=== PATIENT | male | born 1970 | race Hispanic/Latino ===

== ENCOUNTER 2020-01-07 18:11 | Emergency (ER) | payer BC ==
[2020-01-07 18:46] LABS: Absolute Lymphocytes (CBC) 1.6 K/uL (0.7-4.9); Basophils % 0.4 % (0-1.3); Hematocrit 46.2 % (39.6-49.0); Lymphocytes % 13.3 % (15.3-44.8); MPV 7.9 fL (7.6-11.3); RBC Red Blood Cell Count 5.59 M/uL (4.33-5.43)
[2020-01-07 18:47] LABS: Protime INR 1.04
[2020-01-07] MEDS ORDERED: NA CHLORIDE 0.9% 0 ML ONE (18:47)
[2020-01-07] MEDS ORDERED: FAMOTIDINE 20 MG/2 ML VIAL IV ONE (18:47)
[2020-01-07] MEDS ORDERED: MEPERIDINE HCL 25 MG/ML SYR ONE (18:47)
[2020-01-07] MEDS ORDERED: ONDANSETRON 4 MG/2 ML VIAL ONE (18:48)
[2020-01-07 19:00] LABS: ALT/SGPT 22 U/L (12-78); AST/SGOT 19 U/L (15-37); Albumin 3.3 g/dL (3.4-5.0); Alkaline Phosphatase 126 U/L (45-117); BUN Blood Urea Nitrogen 13 mg/dL (7-18); Bicarbonate 26 mmol/L (21-32); Bilirubin Direct < 0.1 mg/dL (0-0.2); Bilirubin Total 0.8 mg/dL (0.2-1.0); Glucose Level 291 mg/dL (74-106); Lipase 249 U/L (73-393); NT PRO-BNP 32 pg/mL (<125); Potassium 3.7 mmol/L (3.5-5.1); Protein, Total 8.3 g/dL (6.4-8.2); Sodium Level 137 mmol/L (136-145); Troponin (Emerg Dept Use Only) < 0.02 ng/mL (0.0-0.045)
--- NOTE | 2020-01-07 19:18 | RAD REPORT ---
EXAM DESCRIPTION: CT - Head Brain Wo Cont - 01/07/2020 7:07 pm CLINICAL HISTORY: HEADACHE Headache, drowsiness COMPARISON: No comparisons TECHNIQUE: All CT scans are performed using dose optimization technique as appropriate and may inclu de automated exposure control or mA/KV adjustment according to patient size. FINDINGS: No intracranial hemorrhage, hydrocephalus or extra-axial fluid collection.No areas of brai n edema or evidence of midline shift. The paranasal sinuses and mastoids are clear. The calvarium is intact. IMPRESSION: No acute intracranial abnormality.
--- NOTE | 2020-01-07 19:19 | RAD REPORT ---
EXAM DESCRIPTION: RAD - Chest Single View - 01/07/2020 6:53 pm CLINICAL HISTORY: vomiting Chest pain. COMPARISON: No comparisons FINDINGS: Portable technique limits examination quality. The lungs are grossly clear. The heart is normal in size. No displaced fractures. IMPRESSION: No acute intrathoracic process suspected.
[2020-01-07] MEDS ORDERED: lisinopriL 20 MG TAB ONE (19:42)
[2020-01-07] MEDS ORDERED: HYDRALAZINE HCL 20 MG/ML VIAL ONE (19:42)
--- NOTE | 2020-01-07 20:08 | ER ---
Nurse's Notes [facility] Name: Alan Pollack Jr Age: 49 yrs Sex: Male : 1970 Arrival Date: 01/07/2020 Time: 18:16 Bed 8 Private MD: Roman Avilez T Diagnosis: Hypertensive heart disease;Diabetes mellitus due to underlying condition with hyperglycemia Presentation: 01/06 18:24 Chief complaint: Patient states: hyperglycemia in the 400s, headache x 1-2 weeks. sv Headache and unable to see directly in front of him and is seeing flashing lights. Pt reports not taking his medications "in a while". Coronavirus screen: Client denies travel out of the [place] in the last 14 days. At this time, the client does not indicate any symptoms associated with coronavirus-19. Ebola Screen: No symptoms or risks identified at this time. Risk Assessment: Do you want to hurt yourself or someone else? Patient reports no desire to harm self or others. Onset of symptoms is unknown. 18:24 Method Of Arrival: Ambulatory sv 18:24 Acuity: ROSIE 2 sv 18:25 Initial Sepsis Screen: Does the patient meet any 2 criteria? No. Patient's initial vg1 sepsis screen is negative. Does the patient have a suspected source of infection? No. Patient's initial sepsis screen is negative. Triage Assessment: 18:44 GI: Reports diarrhea, vomiting, since Reports vomiting about 2 hours ago and last vg1 diarrhea was about an hour ago. Denies ABD pain or tenderness. Historical: - Allergies: 18:26 No Known Allergies; sv - PMHx: 18:26 Diabetes - NIDDM; Hypertension; sv - PSHx: 18:26 None; sv - Immunization history:: Flu vaccine is not up to date. - Social history:: Smoking status: Patient denies any tobacco usage or history of. Screenin:25 Abuse screen: Denies threats or abuse. Nutritional screening: No deficits noted. vg1 Tuberculosis screening: No symptoms or risk factors identified. Fall Risk No fall in past 12 months (0 pts). No secondary diagnosis (0 pts). IV access (20 points). Ambulatory Aid- None/Bed Rest/Nurse Assist (0 pts). Gait- Normal/Bed Rest/Wheelchair (0 pts) Mental Status- Oriented to own ability (0 pts). Total Whaley Fall Scale indicates No Risk (0-24 pts). Assessment: 18:20 General: Appears in no apparent distress. Behavior is calm, cooperative. Pain: vg1 Complains of pain in head Pain currently is 8 out of 10 on a pain scale. Neuro: Level of Consciousness is awake, alert, obeys commands, Oriented to person, place, time, situation. Cardiovascular: Capillary refill < 3 seconds Patient's skin is warm and dry. Respiratory: Airway is patent Respiratory effort is even, unlabored, Respiratory pattern is regular, symmetrical. GI: Abdomen is round non-distended. : No signs and/or symptoms were reported regarding the genitourinary system. EENT: No signs and/or symptoms were reported regarding the EENT system. Derm: Skin is pink, warm \\T\\ dry. Musculoskeletal: Range of motion: intact in all extremities. 19:15 Reassessment: Patient appears in no apparent distress at this time. Patient returned lp1 from CT, states relief from nausea at this time, states headache decreased after medication administered. Neuro: Level of Consciousness is awake, alert, obeys commands. Cardiovascular: Heart tones S1 S2 present Patient's skin is warm and dry. Respiratory: Respiratory effort is even, unlabored, Breath sounds are clear bilaterally. GI: Abdomen is obese, Patient currently denies nausea. Derm: Skin is intact, Skin is dry, Skin is normal. Musculoskeletal: Circulation, motion, and sensation intact. 19:35 Reassessment: patient given ice water, tolerating well; denies nausea. lp1 20:15 Reassessment: Patient denies nausea and headache at discharge; Educated on follow-up lp1 with PCP and taking home meds to control BP and DM. Vital Signs: 18:24 BP 204 / 100; Pulse 94; Resp 16; Pulse Ox 99% ; Weight 136.08 kg; Height 5 ft. 10 in. sv (177.80 cm); Pain 9/10; 18:30 BP 184 / 88; Pulse 86; Resp 20; Temp 98.0(O); Pulse Ox 96% on R/A; vg1 19:15 BP 203 / 101; Pulse 82; Resp 19; Pulse Ox 98% on R/A; Pain 5/10; lp1 19:35 BP 193 / 99; Pulse 83; Resp 18; Pulse Ox 98% on R/A; lp1 20:06 BP 167 / 76; Pulse 98; Resp 20; Pulse Ox 98% on R/A; lp1 18:24 Body Mass Index 43.05 (136.08 kg, 177.80 cm) sv ED Course: 18:16 Patient arrived in ED. mr 18:16 Roman Avilez MD is Private Physician. mr 18:18 Roddy Neil PA is PHCP. cp 18:18 Víctor Hermosillo MD is Attending Physician. cp 18:18 Justin Mack NP is PHCP. pm1 18:21 Em Dozier, RN is Primary Nurse. vg1 18:25 Triage completed. sv 18:26 Nurse Practitioner and/or Physician [employer] to see patient. sv 18:26 Arm band placed on Patient placed in an exam room, on a stretcher. sv 18:26 Patient has correct armband on for positive identification. Bed in low position. Call vg1 light in reach. lunchroom monitor on. Pulse ox on. NIBP on. 18:30 Initial lab(s) drawn, by nc, sent to lab. Inserted saline lock: 20 gauge in right em antecubital area, using aseptic technique. Blood collected. 18:40 EKG done, by ED staff, reviewed by Roddy HOLCOMB. dh3 18:46 Xray at bedside. vg1 18:51 XRAY Chest (1 view) In Process Unspecified. EDMS 19:05 Fransisco Magaña MD is Attending Physician. cp 19:07 CT Head Brain wo Cont In Process Unspecified. EDMS 19:10 Primary Nurse role handed off by Em Dozier, RN mw2 19:11 Tiffani Chavez, GOPI is Primary Nurse. lp1 20:07 Roman Avilez MD is Referral Physician. cp 20:15 No provider procedures requiring assistance completed. IV discontinued, No lp1 redness/swelling at site. Pressure dressing applied. Administered Medications: 18:38 Drug: Pepcid 20 mg Route: IVP; Site: right antecubital; em 19:24 Follow up: Response: No adverse reaction lp1 18:40 Drug: Zofran (Ondansetron) 4 mg Route: IVP; Site: right antecubital; em 19:24 Follow up: Response: Marked relief of symptoms lp1 18:42 Drug: Demerol - Meperidine 12.5 mg Route: IVP; Site: right antecubital; em 19:24 Follow up: Response: Pain is decreased lp1 19:34 Drug: Lisinopril 20 mg Route: PO; lp1 19:34 Drug: hydrALAZINE 10 mg Route: IV; Rate: calculated rate; Site: right antecubital; lp1 20:07 Follow up: Response: Blood pressure is lowered; IV Status: Completed infusion lp1 Outcome: 20:08 Discharge ordered by . cp 20:20 Discharged to home ambulatory. lp1 20:20 Condition: good 20:20 Discharge instructions given to patient, Instructed on discharge instructions, follow up and referral plans. medication usage, Demonstrated understanding of instructions, follow-up care, medications, Prescriptions given X 1. 20:33 Patient left the ED. lp1 Signatures: Dispatcher [employer] Charley Ramachandran, RN GOPI Flora Herrera mr DonnellyKenny RN GOPI Tiffani Chavez RN RN lp1 Roddy Neil PA PA Justin Elena, DRY COLOR TESTER DRY COLOR TESTER 1 Ariana Payton 3 Silverio Muir 2 Em Dozier RN RN vg1
--- NOTE | 2020-01-07 20:09 | EDPHYS ---
Physician Documentation [facility] Name: Alan Pollack Jr Age: 49 yrs Sex: Male : 1970 Arrival Date: 01/07/2020 Time: 18:16 Bed 8 Private MD: Roman Avilez T ED Physician Fransisco Magaña HPI: 01/06 18:33 This 49 yrs old Male presents to ER via Ambulatory with complaints of High cp Blood Sugar, Nausea/Vomiting, Headache. 18:33 The patient or guardian reports hyperglycemia, that was potentially precipitated by not cp taking medications as prescribed. Associated signs and symptoms: Pertinent positives: nausea, vomiting. 18:33 Current symptoms: In the emergency department the patient's symptoms are unchanged from cp the initial presentation. Historical: - Allergies: 18:26 No Known Allergies; sv - PMHx: 18:26 Diabetes - NIDDM; Hypertension; sv - PSHx: 18:26 None; sv - Immunization history:: Flu vaccine is not up to date. - Social history:: Smoking status: Patient denies any tobacco usage or history of. ROS: 18:40 Constitutional: Negative for body aches, chills, fever, poor PO intake. cp 18:40 Eyes: Positive for blurry vision, Negative for vision loss. cp 18:40 ENT: Negative for ear pain, sore throat, difficulty swallowing, difficulty handling secretions. 18:40 Cardiovascular: Negative for chest pain. 18:40 Respiratory: Negative for cough, shortness of breath, wheezing. 18:40 Abdomen/GI: Positive for nausea and vomiting, Negative for abdominal pain, diarrhea, constipation. 18:40 Neuro: Positive for headache, Negative for altered mental status, numbness, syncope, weakness. 18:40 All other systems are negative. Exam: 18:42 ECG was reviewed by the Attending Physician. cp 18:45 Constitutional: The patient appears in no acute distress, alert, awake, cp non-diaphoretic, non-toxic, well developed, well nourished, obese. 18:45 Head/Face: Normocephalic, atraumatic. cp 18:45 Eyes: Periorbital structures: appear normal, Pupils: equal, round, and reactive to light and accomodation, Extraocular movements: intact throughout, Conjunctiva: normal, no exudate, no injection, Sclera: no appreciated abnormality, Lids and lashes: appear normal, bilaterally. 18:45 ENT: External ear(s): are unremarkable, Ear canal(s): are normal, clear, TM's: dullness, bilaterally, Nose: is normal, Mouth: Lips: moist, Oral mucosa: moist, Posterior pharynx: is normal, airway is patent, no erythema, no exudate. 18:45 Neck: ROM/movement: is normal, is supple, without pain, no range of motions limitations. 18:45 Chest/axilla: Inspection: normal, Palpation: is normal, no crepitus, no tenderness. 18:45 Cardiovascular: Rate: normal, Rhythm: regular, Edema: is not appreciated. 18:45 Respiratory: the patient does not display signs of respiratory distress, Respirations: normal, no use of accessory muscles, no retractions, labored breathing, is not present, Breath sounds: are clear throughout, no decreased breath sounds, no stridor, no wheezing. 18:45 Abdomen/GI: Inspection: obese Palpation: abdomen is soft and non-tender, in all quadrants. 18:45 Back: pain, is absent, ROM is normal. 18:45 Neuro: Orientation: to person, place \T\ time. Mentation: is normal, Cerebellar function: is grossly normal, Motor: moves all fours, strength is normal, Sensation: is normal, Gait: is steady, at a normal pace, without difficulty. Vital Signs: 18:24 BP 204 / 100; Pulse 94; Resp 16; Pulse Ox 99% ; Weight 136.08 kg; Height 5 ft. 10 in. sv (177.80 cm); Pain 9/10; 18:30 BP 184 / 88; Pulse 86; Resp 20; Temp 98.0(O); Pulse Ox 96% on R/A; vg1 19:15 BP 203 / 101; Pulse 82; Resp 19; Pulse Ox 98% on R/A; Pain 5/10; lp1 19:35 BP 193 / 99; Pulse 83; Resp 18; Pulse Ox 98% on R/A; lp1 20:06 BP 167 / 76; Pulse 98; Resp 20; Pulse Ox 98% on R/A; lp1 18:24 Body Mass Index 43.05 (136.08 kg, 177.80 cm) sv MDM: 18:23 Patient medically screened. 20:07 Data reviewed: vital signs, nurses notes, lab test result(s), EKG, radiologic studies, cp CT scan, plain films. 20:07 Test interpretation: by ED physician or midlevel provider: ECG, plain radiologic cp studies. Counseling: I had a detailed discussion with the patient and/or guardian regarding: the historical points, exam findings, and any diagnostic results supporting the discharge/admit diagnosis, the presence of at least one elevated blood pressure reading (>120/80) during this emergency department visit, lab results, radiology results, the need for outpatient follow up, for definitive care, a family practitioner, to return to the emergency department if symptoms worsen or persist or if there are any questions or concerns that arise at home. Response to treatment: the patient's symptoms have markedly improved after treatment, and as a result, I will discharge patient. 01/06 18: Order name: Basic Metabolic Panel; Complete Time: 19:03 01/06 19:03 Interpretation: Normal except: GLUC 291. 01/06 18:28 Order name: CBC with Diff; Complete Time: 19:03 01/06 19:03 Interpretation: Normal except: WBC 12.3; RBC 5.59; CHANTEL% 83.4; LYM% 13.3; MN% 2.5; NEUT cp A 10.3. 01/06 18:28 Order name: LFT's; Complete Time: 19:03 01/06 18:28 Order name: Magnesium; Complete Time: 19:03 01/06 18:28 Order name: NT PRO-BNP; Complete Time: 19:03 01/06 18:28 Order name: PT-INR; Complete Time: 19:03 01/06 18:28 Order name: Troponin (emerg Dept Use Only); Complete Time: 19:03 01/06 19:04 Interpretation: Reviewed. 01/06 18:28 Order name: XRAY Chest (1 view); Complete Time: 19:21 01/06 19:21 Interpretation: Report reviewed. 01/06 18: Order name: CT Head Brain wo Cont; Complete Time: 19:21 01/06 18:28 Order name: Lipase; Complete Time: 19:03 01/06 18:32 Order name: Ketone, Serum; Complete Time: 19:09 01/06 19:09 Interpretation: Within normal limits: ACET NEG. cp 01/06 18:38 Order name: Glucose, Ancillary Testing; Complete Time: 19:03 EDMS 01/06 18:28 Order name: EKG; Complete Time: 18:29 cp 01/06 18:28 Order name: Cardiac monitoring; Complete Time: 18:31 cp 01/06 18:28 Order name: EKG - Nurse/Tech; Complete Time: 18:51 01/06 18:28 Order name: IV Saline Lock; Complete Time: 18:31 01/06 18:28 Order name: Labs collected and sent; Complete Time: 18:31 cp 01/06 18:28 Order name: O2 Per Protocol; Complete Time: 18:31 01/06 18:28 Order name: O2 Sat Monitoring; Complete Time: 18:31 01/06 19:21 Order name: PO challenge; Complete Time: 19:24 cp EC:42 Rate is 85 beats/min. Rhythm is regular. LA interval is normal. QRS interval is normal. cp QT interval is normal. Interpreted by me. Reviewed by me. Administered Medications: 18:38 Drug: Pepcid 20 mg Route: IVP; Site: right antecubital; em 19:24 Follow up: Response: No adverse reaction lp1 18:40 Drug: Zofran (Ondansetron) 4 mg Route: IVP; Site: right antecubital; em 19:24 Follow up: Response: Marked relief of symptoms lp1 18:42 Drug: Demerol - Meperidine 12.5 mg Route: IVP; Site: right antecubital; em 19:24 Follow up: Response: Pain is decreased lp1 19:34 Drug: Lisinopril 20 mg Route: PO; lp1 19:34 Drug: hydrALAZINE 10 mg Route: IV; Rate: calculated rate; Site: right antecubital; lp1 20:07 Follow up: Response: Blood pressure is lowered; IV Status: Completed infusion lp1 Disposition: 20:25 Chart complete. 01/07 06:03 Co-signature as Attending Physician, Fransisco Magaña MD. [email or web address] Disposition: 01/07/20 20:08 Discharged to Home. Impression: Hypertensive heart disease, Diabetes mellitus due to underlying condition with hyperglycemia. - Condition is Stable. - Discharge Instructions: Type 2 Diabetes Mellitus, Diagnosis, Adult, Hypertension, Blood Glucose Monitoring, Adult, Diabetes Mellitus and Food, Managing Your Hypertension. - Prescriptions for Lisinopril 20 mg Oral Tablet - take 1 tablet by ORAL route once daily; 20 tablet. - Medication Reconciliation Form, Thank You Letter, Antibiotic Education, Prescription Opioid Use form. - Follow up: Roman Avilez MD; When: 1 - 2 days; Reason: Recheck today's complaints. - Problem is chronic. - Symptoms have improved. Signatures: Dispatcher [employer] Charley Ramachandran RN RN Kenny Donnelly RN RN em Tiffani Chavez RN RN lp1 Roddy Neil PA PA cp Fransisco Magaña MD MD [email or web address] Corrections: (The following items were deleted from the chart) 01/06 20:33 20:08 01/07/2020 20:08 Discharged to Home. Impression: Hypertensive heart disease; lp1 Diabetes mellitus due to underlying condition with hyperglycemia. Condition is Stable. Forms are Medication Reconciliation Form, Thank You Letter, Antibiotic Education, Prescription Opioid Use. Follow up: Roman Avilez; When: 1 - 2 days; Reason: Recheck today's complaints. Problem is chronic. Symptoms have improved. cp
[2020-01-08 01:20] VITALS: TEMP 98
[2020-01-08 01:22] VITALS: O2SAT 98
[2020-01-08 01:25] VITALS: BP 167/76
== END 2020-01-07 20:33 | disposition home or self-care (01) ==
LOC: ER 18:11
DX: E11.65 Type 2 diabetes mellitus with hyperglycemia (principal); I11.9 Hypertensive heart disease without heart failure; I10 Essential (primary) hypertension
CPT/HCPCS: 96365; 93005; 85025; 80048; 36415; 82010; 83735; 85610; 82947; 80076; 84484; 83690; 83880; 70450; 71045; 96375; 99285; J0360; J2175; J2405; J7030

== ENCOUNTER 2022-11-04 02:16 | Emergency (ER) | payer BC ==
[2022-11-04] MEDS ORDERED: NA CHLORIDE 0.9% 500 ML ONE (02:50)
[2022-11-04] MEDS ORDERED: FOLIC ACID 5 MG/ML VIAL ONE (02:51)
[2022-11-04] MEDS ORDERED: TENECTEPLASE 50 MG/10 ML VIAL IV ONE (02:57)
[2022-11-04] MEDS ORDERED: INSULIN GLARGINE 100 UNIT/ML SQ ONE (03:10)
[2022-11-04] MEDS ORDERED: INSULIN -REGULAR HUMAN 50 UNIT/0.5 ML ML ONE (03:11)
[2022-11-04] MEDS ORDERED: LABETALOL 20 MG/4ML SYRINGE IV ONE ×2 (03:11→04:01)
[2022-11-04 03:14] LABS: Absolute Lymphocytes (CBC) 3.3 K/uL (0.7-4.9); Hematocrit 41.6 % (39.6-49.0); Lymphocytes % 34.3 % (15.3-44.8); MPV 7.9 fL (7.6-11.3); Platelets 265 thou/uL (152-406); RBC Red Blood Cell Count 4.95 M/uL (4.33-5.43)
[2022-11-04 03:16] LABS: Protime INR 0.77
--- NOTE | 2022-11-04 03:21 | ER ---
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 stated last known normal was 2302 prior to going to bed. Patient stated woke up this AM to go to bathroom and almost fell due to the weakness and numbness. 02:19 Coronavirus screen: Vaccine status: Patient reports receiving the 2nd dose of the covid pf1 vaccine. Moderna Client denies travel out of the [place] in the last 14 days. At this time, the client does not indicate any symptoms associated with coronavirus-19. Ebola Screen: Patient negative for fever greater than or equal to 101.5 degrees Fahrenheit, and additional compatible Ebola Virus Disease symptoms. Initial Sepsis Screen: Does the patient meet any 2 criteria? No. Patient's initial sepsis screen is negative. Does the patient have a suspected source of infection? No. Patient's initial sepsis screen is negative. Risk Assessment: Do you want to hurt yourself or someone else? Patient reports no desire to harm self or others. 02:19 Method Of Arrival: Ambulatory pf1 02:19 Acuity: ROSIE 2 pf1 04:18 Onset of symptoms was November 04, 2022 at 02:00. rv Historical: - Allergies: 02:40 No Known Allergies; pf1 - PMHx: 02:40 Diabetes - NIDDM; Hypertension; Congestive heart failure; pf1 - PSHx: 02:40 None; pf1 - Immunization history:: Adult Immunizations up to date, Client reports receiving the 2nd dose of the Covid vaccine, Moderna Last tetanus immunization: > 10 years ago Flu vaccine status is unknown. - Social history:: Smoking status: Patient denies any tobacco usage or history of. Patient uses alcohol, occasionally. Patient/guardian denies using street drugs. - Family history:: not pertinent. Screenin:17 [facility] ED Fall Risk Assessment (Adult) History of falling in the last 3 months, rv including since admission No falls in past 3 months (0 pts) Score/Fall Risk Level 3 or more points = High Risk Oriented to surroundings, Maintained a safe environment, Educated pt \T\ family on fall prevention, incl call for assistance when getting out of bed, Assessed \T\ reinforced patient's understanding of fall precautions, Provided non-skid footwear, Hourly rounding (assess needs \T\ fall precautionary measures) done, Used ambulatory aids as needed (educated on \T\ assisted with), Used gait belt as appropriate Implemented a Fall Risk Plan of Care, Apply high fall risk patient identification: yellow non skid footwear/ fall signage, Placed fall mat w/ non beveled edge next to bed, Activated bed/chair alarm, Remained w/in arm's length of patient and in sight while toileting, Offered frequent toileting (1:1 observation), Remained with patient while ambulating, Utilized family, sitter, or virtual claim inspector as indicated. Abuse screen: Denies threats or abuse. Denies injuries from another. Nutritional screening: No deficits noted. Tuberculosis screening: No symptoms or risk factors identified. Assessment: 02:30 General: Appears comfortable, Behavior is calm, cooperative. rv 02:30 Pain: Denies pain. Neuro: Level of Consciousness is awake, alert, obeys commands, rv Oriented to person, place, time, situation. Cardiovascular: Capillary refill < 3 seconds Patient's skin is warm and dry. Respiratory: Airway is patent Respiratory effort is even, unlabored. Derm: Skin is intact. Vital Signs: 02:19 BP 234 / 115; Pulse 94; Resp 18; Temp 98; Pulse Ox 97% on R/A; Weight 105 kg; Height 5 pf1 ft. 10 in. ; Pain 0/10; 02:30 BP 210 / 89; Pulse 93; Resp 19; Pulse Ox 95% on R/A; rv 02:45 BP 214 / 101; Pulse 95; Resp 18; Pulse Ox 98% ; rv 03:00 BP 183 / 83; Pulse 90; Resp 18; Pulse Ox 96% on R/A; rv 03:15 BP 200 / 105; Pulse 88; Resp 17; Pulse Ox 97% on R/A; rv 03:30 BP 212 / 104; Pulse 92; Resp 18; Pulse Ox 97% on R/A; rv 03:45 BP 187 / 81; Pulse 88; Resp 17; Temp 98.6; Pulse Ox 97% on R/A; rv 02:19 Body Mass Index 33.21 (105.00 kg, 177.8 cm) pf1 02:19 Pain Scale: Adult pf1 [place] Coma Score: 03:45 Eye Response: spontaneous(4). Motor Response: obeys commands(6). Verbal Response: rv oriented(5). Total: 15. NIH Stroke Scale Scores: 02:30 NIHSS Score: 1 rv 03:30 NIHSS Score: 0 rv 03:30 NIHSS Score: 2 sujit ED Course: 02:18 Patient arrived in ED. mr 02:19 Roman Avilez MD is Private Physician. mr 02:20 Roddy Drake MD is Attending Physician. sujit 02:30 Arm band placed on right wrist. rv 02:30 Patient has correct armband on for positive identification. Bed in low position. Call rv light in reach. Side rails up X 1. 02:30 Provided Education on: stroke. Client placed on continuous cardiac and pulse oximetry rv monitoring. NIBP monitoring applied. cardboard cutter on. 02:34 Pramod Marcus, GOPI is Primary Nurse. rv 02:35 Inserted saline lock: 20 gauge in right antecubital area, using aseptic technique. rv Blood collected. 02:40 Triage completed. pf1 02:54 CT Stroke Brain w/o Contrast In Process Unspecified. EDMS 02:54 CT Head Angio In Process Unspecified. EDMS 02:55 CT Neck Angio In Process Unspecified. EDMS 02:57 XRAY Chest (1 view) In Process Unspecified. EDMS 03:00 No provider procedures requiring assistance completed. Inserted saline lock: 20 gauge rv in left forearm, using aseptic technique. 03:20 Initiated transfer with Michael at [facility]. rv1 03:[address] Rodriguez to [place] [id number] Bed 14. rv1 03:32 Called [facility] for transfer. rv1 04:19 Patient transferred, IV remains in place. rv Administered Medications: 02:46 Drug: NS 0.9% IV 500 ml IV at bolus once Route: IV; Rate: bolus; Site: right rv antecubital; 03:45 Follow up: IV Status: Completed infusion rv 02:47 Drug: foLIC Acid IVPB 1 mg IVPB once Route: IVPB; Site: right antecubital; rv 03:45 Follow up: IV Status: Completed infusion; IV Intake: 500ml rv 03:00 Drug: Labetalol IV 10 mg IV at per protocol once over 2 mins; For SBP greater than 140. rv Hold for HR less than 60, notify provider. Route: IV; Rate: per protocol; Infused Over: 2 mins; Site: right antecubital; :45 Follow up: Response: Blood pressure is lowered; IV Status: Completed infusion rv 03:00 Drug: Insulin Regular Human IVP 10 units IVP once {Co-Signature: bp (Jw Severino RN).} Route: IVP; Site: right antecubital; :45 Follow up: Response: Blood sugar is lowered rv 03:00 Drug: Insulin Glargine Sub-Q 30 units Sub-Q once {Co-Signature: bp (Jw Severino RN).} Route: Sub-Q; Site: left lower abdomen; 03:45 Follow up: Response: No adverse reaction rv 03:20 Drug: TNK FOR STROKE - Tenecteplase IV 0.25 mg/kg IV at per protocol once; MAX rv DOSE 25 mg, IVP over 5 seconds {Co-Signature: bp (Jw Severino RN).} Route: IV; Rate: per protocol; Site: right antecubital; 03:45 Follow up: Response: No adverse reaction; IV Status: Completed infusion rv 03:30 Drug: Labetalol IV 20 mg IV at per protocol once over 2 mins Route: IV; Rate: per rv protocol; Infused Over: 2 mins; Site: right antecubital; 03:45 Follow up: Response: Blood pressure is lowered; IV Status: Completed infusion rv 04:20 Not Given (not appropriate at this timee): [id number] mg IV at per protocol once over rv 2 mins Medication: 04:17 VIS not applicable for this client. rv Intake: 03:45 IV: 500ml; Total: 500ml. rv Outcome: 03:21 ER care complete, transfer ordered by MD. beckett 04:19 Transferred by helicopter to [facility], Transfer form completed. rv X-rays sent w/ patient. 04:19 Condition: improved 04:19 Instructed on the need for transfer, 04:23 Patient left the ED. NIH Stroke Scale - NIH Stroke Score Date: 11/04/2022 Time: 02:30 Total Score = 1 10. Dysarthria (speech clarity - read or repeat words) - 0(Normal) 11. Extinction and Inattention (visual/tactile/auditory/spatial/personal) - 0(No abnormality) 1a. Level of Consciousness (LOC) - 0(Alert) 1b. Level of Consciousness (LOC) (Month \T\ Age) - 0(Both) 1c. LOC Commands (Open \T\ Closes Eyes/Spot Man) - 0(Both) 2. Best Gaze (Lateral Gaze Paresis) - 0(Normal) 3. Visual Field Loss - 0(No visual loss) 4. Facial Palsy - 0(Normal) 5a. Left Arm: Motor (10-second hold) - 0(No drift) 5b. Right Arm: Motor (10-second hold) - 0(No drift) 6a. Left Leg: Motor (5-second hold - always test supine) - 0(No drift) 6b. Right Leg: Motor (5-second hold - always test supine) - 0(No drift) 7. Limb Ataxia (finger/nose \T\ heel/christine - test with eyes open) - 0(Absent) 8. Sensory Loss (pinprick arms/legs/face) - 1(Mild to moderate loss) 9. Best Language: Aphasia (description/naming/reading) - 0(No aphasia) Initials: NIH Stroke Scale - NIH Stroke Score Date: 11/04/2022 Time: 03:30 Total Score = 0 10. Dysarthria (speech clarity - read or repeat words) - 0(Normal) 11. Extinction and Inattention (visual/tactile/auditory/spatial/personal) - 0(No abnormality) 1a. Level of Consciousness (LOC) - 0(Alert) 1b. Level of Consciousness (LOC) (Month \T\ Age) - 0(Both) 1c. LOC Commands (Open \T\ Closes Eyes/Spot Man) - 0(Both) 2. Best Gaze (Lateral Gaze Paresis) - 0(Normal) 3. Visual Field Loss - 0(No visual loss) 4. Facial Palsy - 0(Normal) 5a. Left Arm: Motor (10-second hold) - 0(No drift) 5b. Right Arm: Motor (10-second hold) - 0(No drift) 6a. Left Leg: Motor (5-second hold - always test supine) - 0(No drift) 6b. Right Leg: Motor (5-second hold - always test supine) - 0(No drift) 7. Limb Ataxia (finger/nose \T\ heel/christine - test with eyes open) - 0(Absent) 8. Sensory Loss (pinprick arms/legs/face) - 0(Normal) 9. Best Language: Aphasia (description/naming/reading) - 0(No aphasia) Initials: jennifer NIH Stroke Scale - NIH Stroke Score Date: 11/04/2022 Time: 03:30 Total Score = 2 10. Dysarthria (speech clarity - read or repeat words) - 0(Normal) 11. Extinction and Inattention (visual/tactile/auditory/spatial/personal) - 1(Present) 1a. Level of Consciousness (LOC) - 0(Alert) 1b. Level of Consciousness (LOC) (Month \T\ Age) - 0(Both) 1c. LOC Commands (Open \T\ Closes Eyes/Spot Man) - 0(Both) 2. Best Gaze (Lateral Gaze Paresis) - 0(Normal) 3. Visual Field Loss - 0(No visual loss) 4. Facial Palsy - 0(Normal) 5a. Left Arm: Motor (10-second hold) - 0(No drift) 5b. Right Arm: Motor (10-second hold) - 0(No drift) 6a. Left Leg: Motor (5-second hold - always test supine) - 0(No drift) 6b. Right Leg: Motor (5-second hold - always test supine) - 0(No drift) 7. Limb Ataxia (finger/nose \T\ heel/christine - test with eyes open) - 0(Absent) 8. Sensory Loss (pinprick arms/legs/face) - 1(Mild to moderate loss) 9. Best Language: Aphasia (description/naming/reading) - 0(No aphasia) Initials: sujit Signatures: Dispatcher [employer] Roddy Maza MD MD cha Rivera, Flora, Reg Reg mr Pramod Marcus RN RN rv Finley, Pamala, RN RN pf1 Mayra Degroot rv1 Jw Severino RN bp Corrections: (The following items were deleted from the chart) 04:21 03:00 Labetalol IV 10 mg IV at per protocol in right antecubital over 2 mins rv rv 04:22 03:54 Labetalol IV 20 mg IV at per protocol in right antecubital over 2 mins rv rv
--- NOTE | 2022-11-04 03:21 | EDPHYS ---
Physician Documentation [facility] Name: Alan Pollack Jr Age: 51 yrs Sex: Male : 1970 Arrival Date: 11/04/2022 Time: 02:16 Bed 5 Private MD: Roman Avilez T ED Physician Roddy Drake HPI: 11/04 02:43 This 51 yrs old Male presents to ER via Ambulatory with complaints of Right sujit side numbness. 02:43 The patient's problem is reported as paresthesias, in right upper extremity, in right sujit lower extremity, weakness, in the right upper extremity, in the right lower extremity. Onset: The symptoms/episode began/occurred at 23:02. Duration: The episode is continuous. Context: the episode(s) was witnessed, by family, , symptoms became apparent upon waking, occurred at an unknown location, last nl 1102pm. The symptoms are alleviated by nothing. The symptoms are aggravated by walking. The patient presents to the emergency department with weakness of the right upper extremity, right lower extremity, that is moderate. Onset: The symptoms/episode began/occurred at an unknown time. Context: occurred at home. Associated signs and symptoms: Pertinent positives:. Severity of symptoms: At their worst the symptoms were moderate in the emergency department the symptoms have improved moderately. Patient's baseline: Neuro: alert and fully oriented, Motor: no deficits, Ambulation: walks without assistance, Speech: normal, The patient has a previous history of htn. Current symptoms: 90 % better. Historical: - Allergies: 02:40 No Known Allergies; pf1 - PMHx: 02:40 Diabetes - NIDDM; Hypertension; Congestive heart failure; pf1 - PSHx: 02:40 None; pf1 - Immunization history:: Adult Immunizations up to date, Client reports receiving the 2nd dose of the Covid vaccine, Moderna Last tetanus immunization: > 10 years ago Flu vaccine status is unknown. - Social history:: Smoking status: Patient denies any tobacco usage or history of. Patient uses alcohol, occasionally. Patient/guardian denies using street drugs. - Family history:: not pertinent. ROS: 02:48 Constitutional: Negative for fever, chills, and weight loss, Eyes: Negative for injury, sujit pain, redness, and discharge, ENT: Negative for injury, pain, and discharge, Neck: Negative for injury, pain, and swelling, Cardiovascular: Negative for chest pain, palpitations, and edema, Respiratory: Negative for shortness of breath, cough, wheezing, and pleuritic chest pain, Abdomen/GI: Negative for abdominal pain, nausea, vomiting, diarrhea, and constipation, Back: Negative for injury and pain, : Negative for injury, bleeding, discharge, and swelling, MS/Extremity: Negative for injury and deformity, Skin: Negative for injury, rash, and discoloration, Psych: Negative for depression, anxiety, suicide ideation, homicidal ideation, and hallucinations, Allergy/Immunology: Negative for hives, rash, and allergies, Endocrine: Negative for neck swelling, polydipsia, polyuria, polyphagia, and marked weight changes, Hematologic/Lymphatic: Negative for swollen nodes, abnormal bleeding, and unusual bruising, 02:48 Neuro: Positive for tingling, weakness, of the right arm and right leg, Exam: 02:48 Constitutional: This is a well developed, well nourished patient who is awake, alert, sujit and in no acute distress. Head/Face: Normocephalic, atraumatic. Eyes: Pupils equal round and reactive to light, extra-ocular motions intact. Lids and lashes normal. Conjunctiva and sclera are non-icteric and not injected. Cornea within normal limits. Periorbital areas with no swelling, redness, or edema. ENT: Nares patent. No nasal discharge, no septal abnormalities noted. Tympanic membranes are normal and external auditory canals are clear. Oropharynx with no redness, swelling, or masses, exudates, or evidence of obstruction, uvula midline. Mucous membranes moist. Neck: Trachea midline, no thyromegaly or masses palpated, and no cervical lymphadenopathy. Supple, full range of motion without nuchal rigidity, or vertebral point tenderness. No Meningismus. Chest/axilla: Normal chest wall appearance and motion. Nontender with no deformity. No lesions are appreciated. Cardiovascular: Regular rate and rhythm with a normal S1 and S2. No gallops, murmurs, or rubs. Normal PMI, no JVD. No pulse deficits. Respiratory: Lungs have equal breath sounds bilaterally, clear to auscultation and percussion. No rales, rhonchi or wheezes noted. No increased work of breathing, no retractions or nasal flaring. Abdomen/GI: Soft, non-tender, with normal bowel sounds. No distension or tympany. No guarding or rebound. No evidence of tenderness throughout. Back: No spinal tenderness. No costovertebral tenderness. Full range of motion. Male : Normal genitalia with no discharge or lesions. Skin: Warm, dry with normal turgor. Normal color with no rashes, no lesions, and no evidence of cellulitis. MS/ Extremity: Pulses equal, no cyanosis. Neurovascular intact. Full, normal range of motion. Neuro: Awake and alert, GCS 15, oriented to person, place, time, and situation. Cranial nerves II-XII grossly intact. Motor strength 5/5 in all extremities. Sensory grossly intact. Cerebellar exam normal. Normal gait. Psych: Awake, alert, with orientation to person, place and time. Behavior, mood, and affect are within normal limits. 02:48 ECG was reviewed by the Attending Physician. 03:30 Radiologist reports: near occlusion of left mca sujit Vital Signs: 02:19 BP 234 / 115; Pulse 94; Resp 18; Temp 98; Pulse Ox 97% on R/A; Weight 105 kg; Height 5 pf1 ft. 10 in. ; Pain 0/10; 02:30 BP 210 / 89; Pulse 93; Resp 19; Pulse Ox 95% on R/A; rv 02:45 BP 214 / 101; Pulse 95; Resp 18; Pulse Ox 98% ; rv 03:00 BP 183 / 83; Pulse 90; Resp 18; Pulse Ox 96% on R/A; rv 03:15 BP 200 / 105; Pulse 88; Resp 17; Pulse Ox 97% on R/A; rv 03:30 BP 212 / 104; Pulse 92; Resp 18; Pulse Ox 97% on R/A; rv 03:45 BP 187 / 81; Pulse 88; Resp 17; Temp 98.6; Pulse Ox 97% on R/A; rv 02:19 Body Mass Index 33.21 (105.00 kg, 177.8 cm) pf1 02:19 Pain Scale: Adult pf1 NIH Stroke Scale Scores: 02:30 NIHSS Score: 1 rv 03:30 NIHSS Score: 0 rv 03:30 NIHSS Score: 2 sujit [place] Coma Score: 03:45 Eye Response: spontaneous(4). Motor Response: obeys commands(6). Verbal Response: rv oriented(5). Total: 15. MDM: 02:20 Patient medically screened. [facility] 02:52 Differential diagnosis: CVA, TIA, metabolic disorder. Data reviewed: vital signs, [facility] nurses notes, old medical records, lab test result(s), EKG, radiologic studies, CT scan, plain films. Consideration of Admission/Observation Patient was admitted/placed on observation. Escalation of care including admission/observation considered. I considered the following discharge prescriptions or medication management in the emergency department Medications were administered in the Emergency Department. See MAR. Independent interpretation of the following test(s) in the Emergency Department EKG: See my EKG interpretation above. Test considered but Not performed: MRI: no mri available. Historians other than the Patient: Spouse/Significant Other: . Care significantly affected by the following chronic conditions: Diabetes, Hypertension, Obesity. 11/04 02:32 Order name: Basic Metabolic Panel [facility] 11/04 02:32 Order name: CBC with Diff [facility] 11/04 02:32 Order name: LFT's [facility] 11/04 02:32 Order name: Magnesium [facility] 11/04 02:32 Order name: NT PRO-BNP [facility] 11/04 02:32 Order name: PT-INR [facility] 11/04 02:32 Order name: Troponin HS [facility] 11/04 02:32 Order name: CRP [facility] 11/04 02:35 Order name: Glucose, Ancillary Testing; Complete Time: 02:51 [facility] 11/04 03:24 Order name: CREATININE WHOLE BLOOD [facility] 11/04 04:09 Order name: Glucose, Ancillary Testing [facility] 11/04 02:32 Order name: XRAY Chest (1 view) [facility] 11/04 02:32 Order name: CT Stroke Brain w/o Contrast [facility] 11/04 02:32 Order name: CT Head Angio [facility] 11/04 02:32 Order name: CT Neck Angio [facility] 11/04 02:32 Order name: EKG; Complete Time: 02:33 [facility] 11/04 02:32 Order name: Cardiac monitoring; Complete Time: 02:35 [facility] 11/04 02:32 Order name: EKG - Nurse/Tech; Complete Time: 02:35 [facility] 11/04 02:32 Order name: IV Saline Lock; Complete Time: 02:35 [facility] 11/04 02:32 Order name: Labs collected and sent; Complete Time: 02:35 [facility] 11/04 02:32 Order name: O2 Per Protocol; Complete Time: :35 sujit 11/04 02:32 Order name: O2 Sat Monitoring; Complete Time: :35 [facility] EC:48 Rate is 93 beats/min. Rhythm is regular. QRS [place] is Normal. QRS interval is normal. QT sujit interval is normal. No Q waves. T waves are Normal. No ST changes noted. Clinical impression: NSR w/ Non-specific ST/T Changes and No evidence of ischemia. Interpreted by me. Reviewed by me. Administered Medications: 02:46 Drug: NS 0.9% IV 500 ml IV at bolus once Route: IV; Rate: bolus; Site: right rv antecubital; 03:45 Follow up: IV Status: Completed infusion rv 02:47 Drug: foLIC Acid IVPB 1 mg IVPB once Route: IVPB; Site: right antecubital; rv 03:45 Follow up: IV Status: Completed infusion; IV Intake: 500ml rv 03:00 Drug: Labetalol IV 10 mg IV at per protocol once over 2 mins; For SBP greater than 140. rv Hold for HR less than 60, notify provider. Route: IV; Rate: per protocol; Infused Over: 2 mins; Site: right antecubital; 03:45 Follow up: Response: Blood pressure is lowered; IV Status: Completed infusion rv 03:00 Drug: Insulin Regular Human IVP 10 units IVP once {Co-Signature: bp (Jw Severino rv RN).} Route: IVP; Site: right antecubital; 03:45 Follow up: Response: Blood sugar is lowered rv 03:00 Drug: Insulin Glargine Sub-Q 30 units Sub-Q once {Co-Signature: bp (Jw Severino rv RN).} Route: Sub-Q; Site: left lower abdomen; 03:45 Follow up: Response: No adverse reaction rv 03:20 Drug: TNK FOR STROKE - Tenecteplase IV 0.25 mg/kg IV at per protocol once; MAX rv DOSE 25 mg, IVP over 5 seconds {Co-Signature: bp (Jw Severino RN).} Route: IV; Rate: per protocol; Site: right antecubital; 03:45 Follow up: Response: No adverse reaction; IV Status: Completed infusion rv 03:30 Drug: Labetalol IV 20 mg IV at per protocol once over 2 mins Route: IV; Rate: per rv protocol; Infused Over: 2 mins; Site: right antecubital; 03:45 Follow up: Response: Blood pressure is lowered; IV Status: Completed infusion rv 04:20 Not Given (not appropriate at this timee): mg IV at per protocol once over rv 2 mins Disposition Summary: 11/04/22 03:21 Transfer Ordered Notes: Transfer Location: [facility] sujit Reason: Higher level of care sujit Condition: Serious sujit Problem: new sujit Symptoms: are unchanged sujit Accepting Physician: stroke team(11/04/22 04:23) rv Diagnosis - 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 Dysarthria (speech clarity - read or repeat words) - 0(Normal) 11. Extinction and Inattention (visual/tactile/auditory/spatial/personal) - 0(No abnormality) 1a. Level of Consciousness (LOC) - 0(Alert) 1b. Level of Consciousness (LOC) (Month \T\ Age) - 0(Both) 1c. LOC Commands (Open \T\ Closes Eyes/Iron Pellet Tester) - 0(Both) 2. Best Gaze (Lateral Gaze Paresis) - 0(Normal) 3. Visual Field Loss - 0(No visual loss) 4. Facial Palsy - 0(Normal) 5a. Left Arm: Motor (10-second hold) - 0(No drift) 5b. Right Arm: Motor (10-second hold) - 0(No drift) 6a. Left Leg: Motor (5-second hold - always test supine) - 0(No drift) 6b. Right Leg: Motor (5-second hold - always test supine) - 0(No drift) 7. Limb Ataxia (finger/nose \T\ heel/christine - test with eyes open) - 0(Absent) 8. Sensory Loss (pinprick arms/legs/face) - 1(Mild to moderate loss) 9. Best Language: Aphasia (description/naming/reading) - 0(No aphasia) Initials: rv NIH Stroke Scale - NIH Stroke Score Date: 11/04/2022 Time: 03:30 Total Score = 0 10. Dysarthria (speech clarity - read or repeat words) - 0(Normal) 11. Extinction and Inattention (visual/tactile/auditory/spatial/personal) - 0(No abnormality) 1a. Level of Consciousness (LOC) - 0(Alert) 1b. Level of Consciousness (LOC) (Month \T\ Age) - 0(Both) 1c. LOC Commands (Open \T\ Closes Eyes/Iron Pellet Tester) - 0(Both) 2. Best Gaze (Lateral Gaze Paresis) - 0(Normal) 3. Visual Field Loss - 0(No visual loss) 4. Facial Palsy - 0(Normal) 5a. Left Arm: Motor (10-second hold) - 0(No drift) 5b. Right Arm: Motor (10-second hold) - 0(No drift) 6a. Left Leg: Motor (5-second hold - always test supine) - 0(No drift) 6b. Right Leg: Motor (5-second hold - always test supine) - 0(No drift) 7. Limb Ataxia (finger/nose \T\ heel/christine - test with eyes open) - 0(Absent) 8. Sensory Loss (pinprick arms/legs/face) - 0(Normal) 9. Best Language: Aphasia (description/naming/reading) - 0(No aphasia) Initials: NIH Stroke Scale - NIH Stroke Score Date: 11/04/2022 Time: 03:30 Total Score = 2 10. Dysarthria (speech clarity - read or repeat words) - 0(Normal) 11. Extinction and Inattention (visual/tactile/auditory/spatial/personal) - 1(Present) 1a. Level of Consciousness (LOC) - 0(Alert) 1b. Level of Consciousness (LOC) (Month \T\ Age) - 0(Both) 1c. LOC Commands (Open \T\ Closes Eyes/Iron Pellet Tester) - 0(Both) 2. Best Gaze (Lateral Gaze Paresis) - 0(Normal) 3. Visual Field Loss - 0(No visual loss) 4. Facial Palsy - 0(Normal) 5a. Left Arm: Motor (10-second hold) - 0(No drift) 5b. Right Arm: Motor (10-second hold) - 0(No drift) 6a. Left Leg: Motor (5-second hold - always test supine) - 0(No drift) 6b. Right Leg: Motor (5-second hold - always test supine) - 0(No drift) 7. Limb Ataxia (finger/nose \T\ heel/christine - test with eyes open) - 0(Absent) 8. Sensory Loss (pinprick arms/legs/face) - 1(Mild to moderate loss) 9. Best Language: Aphasia (description/naming/reading) - 0(No aphasia) Initials: sujit Signatures: Dispatcher [employer] Roddy Maza MD MD cha Vicente, Ronaldo RN RN rv Sheila Castillo RN RN pf1 Jw Severino RN bp Corrections: (The following items were deleted from the chart) 03:26 03:21 stroke team sujit beckett 04:23 03:26 stroke team sujit rv
[2022-11-04 03:27] LABS: Albumin 2.7 g/dL (3.4-5.0); Bilirubin Direct 0.1 mg/dL (0-0.2); Bilirubin Indirect, Calculated 0.4 mg/dL (0.2-0.8); Bilirubin Total 0.5 mg/dL (0.2-1.0); C-Reactive Protein 22.1 mg/L (<3.00); Magnesium 2.4 mg/dL (1.6-2.4); Potassium 3.7 mEq/L (3.5-5.1); Protein, Total 6.9 g/dL (6.4-8.2)
[2022-11-04 05:34] VITALS: O2SAT 97
[2022-11-04 05:37] VITALS: BP 187/81; TEMP 98.6
--- NOTE | 2022-11-04 13:29 | RAD REPORT ---
EXAM DESCRIPTION: CT head without IV contrast CLINICAL HISTORY: 51 years Male STROKE ALERT, right-sided weakness TECHNIQUE: Multiple axial CT images of the brain were performed followed by sagittal and coronal rec onstructed images. The CT study is performed according to ALARA (as low as reasonably achievable) or ALARA/IMAGE GENTLY, with automatic adjustment of mA and/or kV according to patient size. Performed on: 11/04/2022 at 2:44 AM COMPARISON: Head CT without contrast performed on 01/07/2020. FINDINGS: Brain: There is no evidence of mass, acute mass effect or midline shift. There are no acut e extra-axial fluid collections. There is no evidence of acute intracranial hemorrhage. The cerebra l sulci and ventricles are normal in size and configuration. There is questionable subtle decreased attenuation in the left subinsular region. Otherwise, no focal abnormal areas of increased or decrea sed attenuation are identified. There is no evidence of a hyperdense MCA. Paranasal Sinuses and Mastoids: There is no significant mucosal thickening of the paranasal sinuses. The mastoid air cells are clear. Orbits: The orbital contents are grossly unremarkable. Bones: No acute osseous abnormalities are identified. Soft Tissues: No focal soft tissue abnormalities are identified. IMPRESSION: There is questionable subtle decreased attenuation in the left subinsular region. Otherw ise, no evidence of acute intracranial pathology. There is no evidence of a hyperdense MCA. These critical findings were discussed with Dr. Roddy Drake on 11/04/2022 at 3:16 AM central time. Electronically signed by: Jeni Rodas DO 11/04/2022 3:40 AM CDT Due to temporary technical issues with the PACS/Fluency reporting system, reports are being signed by the in house radiologist without review as a courtesy to ensure prompt reporting. The interpreting r adiologist is fully responsible for the content of the report.
--- NOTE | 2022-11-04 13:33 | RAD REPORT ---
EXAM DESCRIPTION: 1. CT neck angiography with intravenous contrast. 2. CT head angiography with intravenous contrast. CLINICAL HISTORY: 51 years Male Dizziness;STROKE ALERT. Right-sided weakness TECHNIQUE: Following dynamic intravenous nonionic contrast infusion, multiple axial helical CT image s with multiplanar reconstructions were obtained through the head and neck. Coronal and sagittal MIP images were performed. The CT study is performed according to ALARA (as low as reasonably achievable) or ALARA/IMAGE GENTLY, with automatic adjustment of mA and/or kV according to patient size. Performed on: 11/04/2022 at 2:38 AM COMPARISON: Head CT without contrast performed on 01/07/2020 and 11/04/2022 at 2:38 AM FINDINGS: CTA NECK: AORTA: The aortic arch is incompletely visualized on this study. VERTEBRAL ARTERIES: The visualized LEFT vertebral artery is normal in caliber and contour without evidence of dissection or significant stenosis. The visualized RIGHT vertebral artery is normal in caliber and contour without evidence of dissection or significant stenosis. CAROTID ARTERIES: The LEFT common carotid artery is unremarkable. There is no evidence of stenosis, dissection or occlu wilder The carotid bulb demonstrates no significant plaque. The LEFT internal carotid artery is david l in caliber and contour without evidence of significant stenosis, dissection or occlusion. The LEFT external carotid artery is unremarkable. The RIGHT common carotid artery is unremarkable. There is no evidence of stenosis, dissection or occl usion. The carotid bulb demonstrates no significant plaque. The RIGHT internal carotid artery is un remarkable. There is no evidence of stenosis, dissection or occlusion. The RIGHT external carotid art martina is unremarkable. CTA HEAD: LEFT: INTERNAL CAROTID ARTERY: The distal internal carotid artery is unremarkable. ANTERIOR CEREBRAL ARTERY: The A1 segment is normal in caliber and contour. The A2 segment is normal i n caliber and contour. The region of the anterior communicating artery is unremarkable. MIDDLE CEREBRAL ARTERY: There is a occlusion or severe stenosis involving the origin of the left M1 s egment. There is evidence of flow beyond the origin of the left M1 segment suggesting severe stenosis . There is mild irregularity of one of the proximal left M2 branches suggesting intracranial atherosc lerosis.. POSTERIOR CEREBRAL ARTERY: The P1 segment is normal in caliber and contour. The P2 segment is normal in caliber and contour. The left posterior communicating artery is patent. VERTEBRAL ARTERY: The intradural left vertebral artery is normal in caliber and contour. RIGHT: INTERNAL CAROTID ARTERY: The distal internal carotid artery is unremarkable. ANTERIOR CEREBRAL ARTERY: The A1 segment is normal in caliber and contour. The A2 segment is normal i n caliber and contour. MIDDLE CEREBRAL ARTERY: The M1 segment is patent and demonstrates very mild irregularity suggesting i ntracranial atherosclerotic disease. The M2 branches are patent and are grossly unremarkable. POSTERIOR CEREBRAL ARTERY: The P1 segment is hypoplastic. There is a origin of the right gang bore operator ior cerebral artery. The P2 segment is normal in caliber and contour. VERTEBRAL ARTERY: The intradural right vertebral artery is normal in caliber and contour. BASILAR ARTERY: The basilar artery is normal in caliber and contour. The superior cerebellar arteries are patent. DURAL VENOUS SINUSES: The dural venous sinuses are patent. NON-ANGIOGRAPHIC FINDINGS: The thyroid gland is normal in size and configuration. There are mild degenerative changes of the cer vical spine and C6-C7. No acute osseous abnormalities are identified. The paranasal sinuses and masto id air cells are clear. The orbital contents are unremarkable. The visualized portions of the oral ca vity, oropharynx, nasopharynx, hypopharynx and larynx are grossly unremarkable. The parapharyngeal fa t planes are preserved. IMPRESSION: CTA NECK: Normal CTA of the neck. There is no evidence of stenosis as per the NASCET criteria. CTA HEAD: 1. There is occlusion or severe stenosis involving the origin of the left M1 segment with evidence of flow beyond the occlusion suggesting severe stenosis. There is irregularity of one of the proxim al left M2 branches suggesting intracranial atherosclerotic disease. 2. Mild irregularity involving the right M1 segment and proximal M2 branches suggesting intracrania l atherosclerotic disease. 3. 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 These critical findings were discussed with Dr. Roddy Drake on 11/04/2022 at 3:17 AM central time. Electronically signed by: Jeni Rodas DO 11/04/2022 3:35 AM CDT Due to temporary technical issues with the PACS/Fluency reporting system, reports are being signed by the in house radiologist without review as a courtesy to ensure prompt reporting. The interpreting r adiologist is fully responsible for the content of the report.
--- NOTE | 2022-11-04 13:40 | RAD REPORT ---
EXAM DESCRIPTION: XR Chest, 1 View CLINICAL HISTORY: The patient is 51 years old and is Male; COUGH TECHNIQUE: Frontal view of the chest. COMPARISON: No relevant prior studies available. FINDINGS: Lungs: Mildly prominent interstitial markings. No consolidation. Pleural space: Unremarkable. No pneumothorax. Heart: Unremarkable. Mediastinum: Unremarkable. Bones/joints: Unremarkable. IMPRESSION: Mildly prominent interstitial markings. No consolidation. Electronically signed by: Daniel Rene MD 11/04/2022 3:12 AM CDT Due to temporary technical issues with the PACS/Fluency reporting system, reports are being signed by the in house radiologist without review as a courtesy to ensure prompt reporting. The interpreting r adiologist is fully responsible for the content of the report.
--- NOTE | 2022-11-04 14:30 | EKG ---
Test Date: 2022-11-04 Test Time: 02:28:46 Support Services Tech: RV MEASUREMENT RESULTS: Intervals: Rate: 93 NJ: 154 QRSD: 88 QT: 340 QTc: 422 [place]: P: 62 NJ: 154 QRS: 34 T: 74 INTERPRETIVE STATEMENTS: Normal sinus rhythm with PVCs Nonspecific ST and T wave abnormality Abnormal ECG Compared to ECG 06/01/2022 00:26:34 ST (T wave) deviation now present Sinus tachycardia no longer present T-wave abnormality no longer present Electronically Signed On 11-04-22 14:29:57 CDT by Everett Horta
== END 2022-11-04 04:23 | disposition short-term general hospital (02) ==
LOC: ER 02:16
DX: I63.232 Cerebral infarction due to unspecified occlusion or stenosis of left carotid arteries (principal); I10 Essential (primary) hypertension; E11.65 Type 2 diabetes mellitus with hyperglycemia; E66.9 Obesity, unspecified; Z68.33 Body mass index [BMI] 33.0-33.9, adult; R29.702 NIHSS score 2
CPT/HCPCS: 93005; 85025; 80048; 36415; 83735; 85610; 82565; 82947 ×2; 80076; 84484; 83880; 86140; 70496; 70498; 70450; 71045; 96374; Q9967; J1815; J3101; J7040

== ENCOUNTER 2024-03-15 18:48 | Inpatient (IN) | payer OTHER ==
[2024-03-15] MEDS ORDERED: FUROSEMIDE 40 MG/4 ML VIAL ONE ×2 (19:11→20:06)
[2024-03-15] MEDS ORDERED: NITROGLYCERIN/D5W 50 MG/250 ML BTL IV ONE (19:12)
[2024-03-15 19:18] LABS: Absolute Basophils 0.1 K/uL (0-0.5); Absolute Eosinophils 0.2 K/uL (0-0.5); Absolute Lymphocytes (CBC) 3.1 K/uL (0.7-4.9); Absolute Monocytes 0.7 K/uL (0.1-1.3); Absolute Neutrophil 6.8 K/uL (1.8-8.0); Basophils % 0.8 % (0-1.3); Eosinophils % 1.6 % (0-4.4); Hematocrit 46.1 % (39.6-49.0); Hemoglobin 15.7 g/dL (13.6-17.9); Lymphocytes % 28.6 % (15.3-44.8); MCH 30.1 pg (27.0-35.0); MCHC 34.1 g/dL (32.0-36.0); MCV 88.4 fL (80-100); MPV 8.6 fL (7.6-11.3); Monocytes % 6.7 % (3.3-12.3); Neutrophils % 62.3 % (41.7-73.7); Nucleated Red Blood Cells % 0.1 % (0-0); Platelets 311 thou/uL (152-406); RBC Red Blood Cell Count 5.21 M/uL (4.33-5.43); Red Cell Distribution Width 14.3 % (12.1-15.2)
[2024-03-15 19:32] LABS: AST/SGOT 15 U/L (15-37); Albumin 2.4 g/dL (3.4-5.0); Albumin/Globulin Ratio 0.5 (1.1-1.8); Alkaline Phosphatase 157 U/L (45-117); Anion Gap 9.5 mEq/L (5.0-15.0); BUN Blood Urea Nitrogen 18 mg/dL (7-18); Bicarbonate 26 mEq/L (21-32); Bilirubin Total 0.6 mg/dL (0.2-1.0); Globulin 4.5 g/dL (2.3-3.5); Glomerular Filtration Rate 43 ml/min (=/>90); Glucose Level 189 mg/dL (74-106); NT PRO-BNP 2911 pg/mL (<125); Potassium 3.5 mEq/L (3.5-5.1); Protein, Total 6.9 g/dL (6.4-8.2); Sodium Level 140 mEq/L (136-145); Troponin High Sensitivity 42.7 pg/mL (<58.9)
[2024-03-15 19:42] LABS: ALT/SGPT < 14 U/L (16-61)
--- NOTE | 2024-03-15 21:05 | RAD REPORT ---
EXAMINATION: ONE VIEW CHEST XR CLINICAL INDICATION: Male, 53 years old.,SOB TECHNIQUE: Frontal chest projection is submitted. Examination is limited by patient positioning and t echnique. COMPARISON: 11/04/2022 FINDINGS: Progressive central predominant fluffy opacities and bilateral pleural effusions larger on the left. No pneumothorax. The heart is normal in size. Mediastinal contours are unremarkable. IMPRESSION: Findings suggestive of pulmonary edema as above.
--- NOTE | 2024-03-15 21:13 | EDPHYS ---
Physician Documentation [facility] Name: Alan Pollack Jr Age: 53 yrs Sex: Male : 1970 Arrival Date: 03/15/2024 Time: 18:48 Bed 4 Private MD: ED Physician Mike Crocker HPI: 03/15 19:06 This 53 yrs old Male presents to ER via Ambulatory with complaints of dr5 Breathing Difficulty. 19:06 The patient has shortness of breath at rest. Patient is a 52-year-old male with history dr5 of CHF, diabetes, hypertension coming in with shortness of breath has been going on for the past month due to not taking medications for the past 6 months. When asked why he stopped taking medications he reports that they made him feel bad. Patient reports that he is not able to take 2 steps without getting short of breath and is able to speak in 3-4 word sentences after ambulating to bed.. Historical: - Allergies: 19:01 No Known Allergies; db - PMHx: 19:01 Congestive heart failure; Diabetes - NIDDM; Hypertension; db - Immunization history:: Adult Immunizations unknown. - Infectious Disease History:: Denies. - Social history:: Smoking status: Patient denies any tobacco usage or history of. ROS: 19:06 Constitutional: as per hpi dr5 Exam: 19:06 Constitutional: This is a well developed, well nourished patient who is awake, alert, dr5 and in no acute distress. Head/Face: Normocephalic, atraumatic. Eyes: Pupils equal round and reactive to light, extra-ocular motions intact. Lids and lashes normal. Conjunctiva and sclera are non-icteric and not injected. Cornea within normal limits. Periorbital areas with no swelling, redness, or edema. Chest/axilla: Normal chest wall appearance and motion. Nontender with no deformity. No lesions are appreciated. Cardiovascular: Regular rate and rhythm with a normal S1 and S2. Normal PMI, no JVD. No pulse deficits. 19:06 Skin: Warm, dry with normal turgor. Normal color with no rashes, no lesions, and no evidence of cellulitis. Neuro: Awake and alert, GCS 15, oriented to person, place, time, and situation. Cranial nerves II-XII grossly intact. Motor strength 5/5 in all extremities. Sensory grossly intact. Cerebellar exam normal. Normal gait. 19:06 Respiratory: moderate respiratory distress is noted, Respirations: labored breathing, that is moderate, Breath sounds: rhonchi, are scattered, Respiratory rate: 28 19:06 Abdomen/GI: Inspection: abdomen appears normal, obese Bowel sounds: normal, 19:06 Back: Exam negative for acute changes, 19:06 Musculoskeletal/extremity: ROM: full active range of motion, Circulation is intact in all extremities. Edema, 4+ to the left midcalf, left ankle, left foot, right midcalf, right ankle and right foot is noted, Sensation intact. Vital Signs: 18:55 BP 222 / 120; Pulse 101; Resp 28; Temp 98.9(O); Pulse Ox 95% ; Weight 124.74 kg; Height db 5 ft. 10 in. ; 19:30 BP 237 / 124; Pulse 101; Resp 30; Pulse Ox 96% on 2 lpm NC; cp4 20:00 BP 205 / 116; Pulse 102; Resp 27; Pulse Ox 100% on BiPAP; cp4 20:23 BP 236 / 135; Pulse 101; Resp 32; Pulse Ox 100% on BiPAP; cp4 20:36 BP 239 / 123; Pulse 98; Resp 29; Pulse Ox 99% on BiPAP; cp4 20:56 BP 209 / 109; Pulse 101; Resp 29; Pulse Ox 99% on BiPAP; cp4 21:27 BP 208 / 110; Pulse 94; Resp 27; Pulse Ox 94% on 2 lpm NC; cp4 21:45 BP 207 / 108; Pulse 93; Resp 27; Pulse Ox 93% on 2 lpm NC; cp4 22:11 BP 202 / 109; Pulse 95; Resp 26; Pulse Ox 94% on 2 lpm NC; cp4 23:04 BP 204 / 99; Pulse 94; Resp 26; Pulse Ox 93% on 2 lpm NC; cp4 23:35 BP 197 / 97; Pulse 89; Resp 26; Pulse Ox 93% on 2 lpm NC; cp4 03/16 00:03 BP 176 / 94; Pulse 104; Resp 26; Pulse Ox 94% on 2 lpm NC; cp4 03/15 18:55 Body Mass Index 39.46 (124.74 kg, 177.8 cm) db MDM: 03/15 19:02 Medical Screening Exam initiated dr5 03/16 01:19 Differential diagnosis: Anemia CHF exacerbation, Chronic Obstructive Pulmonary Disease dr5 pneumonia. Data interpreted: potline monitor: rate is 99 beats/min, Pulse oximetry: on BIPAP. Data reviewed: vital signs, nurses notes. Consideration of Admission/Observation Patient was admitted/placed on observation. Management of patient was discussed with the following: Hospitalist: Dr. Osborn. I considered the following discharge prescriptions or medication management in the emergency department Medications were administered in the Emergency Department. See MAR. Care significantly affected by the following chronic conditions: Diabetes, Hypertension, Congestive Heart Failure. Care significantly affected by the following Social Determinants of Health: Poor access to healthcare and/or lack of insurance, Poor access to transportation, Problems related to employment. Counseling: I had a detailed discussion with the patient and/or guardian regarding the historical points, exam findings, and any diagnostic results supporting the discharge/admit diagnosis, the presence of at least one elevated blood pressure reading (>120/80) during this emergency department visit, the need for further work-up and treatment in the hospital. ED course: Patient did well on BiPAP and nitroglycerin drip. Patient's blood pressure decreased and breathing has improved. Admitted patient to ICU given patient's on nitroglycerin drip. 80 mg of Lasix given IV and Mcintyre placed. 03/15 19:01 Order name: CBC with Diff; Complete Time: 19:27 [facility] 03/15 19:01 Order name: NT PRO-BNP; Complete Time: 19:43 [facility] 03/15 19:01 Order name: Troponin HS; Complete Time: 19:43 [facility] 03/15 19:01 Order name: CMP; Complete Time: 19:43 [facility] 03/15 19:05 Order name: Urinalysis w/ reflexes; Complete Time: 02:33 [facility] 03/15 22:17 Order name: CBC with Automated Diff [facility] 03/15 22:17 Order name: CBC with Automated Diff [facility] 03/15 22:17 Order name: Comprehensive Metabolic Panel [facility] 03/15 22:17 Order name: Comprehensive Metabolic Panel [facility] 03/15 19:01 Order name: XRAY Chest (1 view); Complete Time: 21:06 [facility] 03/15 22:20 Order name: Echo with Doppler [facility] 03/15 19:01 Order name: EKG; Complete Time: 19:02 [facility] 03/15 19:01 Order name: Cardiac monitoring; Complete Time: 19: dr5 03/15 19:01 Order name: EKG - Nurse/Tech; Complete Time: : dr5 03/15 19: Order name: IV Saline Lock; Complete Time: : dr5 03/15 19:01 Order name: Labs collected and sent; Complete Time: : dr5 03/15 19:01 Order name: O2 Per Protocol; Complete Time: : dr5 03/15 19: Order name: O2 Sat Monitoring; Complete Time: : dr5 EC/29 19:14 Rate is 98 beats/min. Rhythm is regular. QRS [place] is Normal. OR interval is normal at dr5 130 msec. QRS interval is normal at 86 msec. QT interval is normal at 360 msec. Administered Medications: 19: Drug: Furosemide IVP 40 mg IVP once; give over 2 minutes Route: IVP; Site: right cp4 antecubital; 21:28 Follow up: Response: No adverse reaction 4 19:29 Drug: Nitroglycerin IV 5 mcg/min IV at calculated rate See Administration Instructions; cp4 Standard concentration 50mg/250mL; Recommended max rate 200 mcg/min; max rate for Angina 400mcg/min; Titrate 5 mcg/min q5min to achieve goal (see titration policy); Goal parameter SBP less than 160 bpm or resolution of chest pain; low-sorbing IV tubing. Route: IV; Rate: calculated rate; Site: right antecubital; 20:22 Follow up: Rate change 7.5 mcg/min cp4 21:28 Follow up: Response: No adverse reaction; Blood pressure is lowered 4 03/16 00:05 Follow up: IV Status: Order to discontinue infusion 4 03/15 20:22 Drug: Furosemide IVP 40 mg IVP once; give over 2 minutes Route: IVP; Site: right cp4 antecubital; 21:28 Follow up: Response: No adverse reaction cp4 Disposition: 03/16 08:59 Co-signature as Attending Physician, Mike Crocker MD I reviewed the patient's care rt provided by the Advanced Practice Provider and agree with the diagnosis and treatment plan. Disposition Summary: 03/15/24 21:12 Hospitalization Ordered Notes: Hospitalization Status: Inpatient Admission dr5 Provider: Brenton Osborn dr5 Location: Intensive Care Unit dr5 Condition: Fair dr5 Problem: new dr5 Symptoms: are unchanged dr5 Bed/Room Type: Standard dr5 Room Assignment: 3-(03/15/24 22:47) kl Diagnosis - Unspecified combined systolic (congestive) and diastolic (congestive) heart failure dr5 - Unspecified kidney failure dr5 Forms: - Medication Reconciliation Form dr5 - SBAR form dr5 - Leadership Thank You Letter dr5 Signatures: Dispatcher [employer] EDMS Alison Han RN RN kl Benton, Danielle, RN RN db [place], Ryan, MD MD rt Potter, Christina cp4 Wenrer Newell, [employer]-C [employer]-Cdr5 Corrections: (The following items were deleted from the chart) 03/15 19:02 19:02 CBC+H.LAB.BRZ ordered. EDMS EDMS 19:02 19:02 PROBNP+C.LAB.BRZ ordered. EDMS EDMS 19:02 19:02 Troponin High Sensitivity+C.LAB.BRZ ordered. EDMS EDMS 19:02 19:02 COMPREHENSIVE METABOLIC PANEL+C.LAB.BRZ ordered. EDMS EDMS 19:32 19:32 BiPap ([employer] Only)+RC.RAD.BRZ ordered. EDMS EDMS 22:47 21:12 dr5 kl
--- NOTE | 2024-03-15 21:13 | ER ---
Nurse's Notes [facility] Name: Alan Pollack Jr Age: 53 yrs Sex: Male : 1970 Arrival Date: 03/15/2024 Time: 18:48 Bed 4 Private MD: Diagnosis: Unspecified combined systolic (congestive) and diastolic (congestive) heart failure;Unspecified kidney failure Presentation: 03/15 18:55 Chief complaint: Patient states: BEEN OUT OF MEDS X 6 MONTHS, HX OF CHF AND HTN. db DIFFICULTY BREATHING WITH BILATERAL LEG SWELLING. WENT TO PCP AND TOLD TO COME ED. Coronavirus screen: Client denies travel out of the [place] in the last 14 days. At this time, the client does not indicate any symptoms associated with coronavirus-19. Ebola Screen: Patient negative for fever greater than or equal to 101.5 degrees Fahrenheit, and additional compatible Ebola Virus Disease symptoms Patient denies exposure to infectious person. Patient denies travel to an Ebola-affected area in the 21 days before illness onset. No symptoms or risks identified at this time. Initial Sepsis Screen: Does the patient meet any 2 criteria? No. Patient's initial sepsis screen is negative. Does the patient have a suspected source of infection? No. Patient's initial sepsis screen is negative. Risk Assessment: Do you want to hurt yourself or someone else? Patient reports no desire to harm self or others. Onset of symptoms was March 15, 2024. 18:55 Method Of Arrival: Ambulatory db 18:55 Acuity: ROSIE 2 db Triage Assessment: 19:01 General: Appears distressed, uncomfortable, Behavior is calm, cooperative. Pain: db Complains of pain in right leg and left leg. Neuro: Level of Consciousness is awake, alert, obeys commands, Oriented to person, place, time, situation. Respiratory: Reports shortness of breath Airway is patent Respiratory effort is even, labored, Respiratory pattern is regular, symmetrical. Respiratory: 03/16 00:05 Respiratory: Onset: The symptoms/episode began/occurred. cp4 Historical: - Allergies: 03/15 19:01 No Known Allergies; db - PMHx: 19:01 Congestive heart failure; Diabetes - NIDDM; Hypertension; db - Immunization history:: Adult Immunizations unknown. - Infectious Disease History:: Denies. - Social history:: Smoking status: Patient denies any tobacco usage or history of. Screenin:03 [facility] ED Fall Risk Assessment (Adult) History of falling in the last 3 months, cp4 including since admission No falls in past 3 months (0 pts) Confusion or Disorientation No (0 pts) Intoxicated or Sedated No (0 pts) Impaired Gait No (0 pts) Mobility Assist Device Used No (0 pt) Altered Elimination No (0 pt) Score/Fall Risk Level 0 - 2 = Low Risk Oriented to surroundings, Maintained a safe environment, Assessed \T\ reinforced patient's understanding of fall precautions, Hourly rounding (assess needs \T\ fall precautionary measures) done. Abuse screen: Denies threats or abuse. Nutritional screening: No deficits noted. Tuberculosis screening: No symptoms or risk factors identified. Assessment: 19:30 General: Appears in no apparent distress. uncomfortable, Behavior is calm, cooperative, cp4 appropriate for age. Pain: Denies pain. Neuro: Level of Consciousness is awake, alert, obeys commands, Oriented to person, place, time, situation. Cardiovascular: Rhythm is sinus rhythm. Respiratory: Airway is patent Respiratory effort is labored, shallow, Breath sounds with rhonchi bilaterally. 19:30 GI: No signs and/or symptoms were reported involving the gastrointestinal system. : cp4 No signs and/or symptoms were reported regarding the genitourinary system. EENT: No signs and/or symptoms were reported regarding the EENT system. Derm: No signs and/or symptoms reported regarding the dermatologic system. Musculoskeletal: No signs and/or symptoms reported regarding the musculoskeletal system. 21:28 Reassessment: Patient appears in no apparent distress at this time. Patient and/or cp4 family updated on plan of care and expected duration. Pain level reassessed. Patient is alert, oriented x 3, equal unlabored respirations, skin warm/dry/pink. Vital Signs: 18:55 BP 222 / 120; Pulse 101; Resp 28; Temp 98.9(O); Pulse Ox 95% ; Weight 124.74 kg; Height db 5 ft. 10 in. ; 19:30 BP 237 / 124; Pulse 101; Resp 30; Pulse Ox 96% on 2 lpm NC; cp4 20:00 BP 205 / 116; Pulse 102; Resp 27; Pulse Ox 100% on BiPAP; cp4 20:23 BP 236 / 135; Pulse 101; Resp 32; Pulse Ox 100% on BiPAP; cp4 20:36 BP 239 / 123; Pulse 98; Resp 29; Pulse Ox 99% on BiPAP; cp4 20:56 BP 209 / 109; Pulse 101; Resp 29; Pulse Ox 99% on BiPAP; cp4 21:27 BP 208 / 110; Pulse 94; Resp 27; Pulse Ox 94% on 2 lpm NC; cp4 21:45 BP 207 / 108; Pulse 93; Resp 27; Pulse Ox 93% on 2 lpm NC; cp4 22:11 BP 202 / 109; Pulse 95; Resp 26; Pulse Ox 94% on 2 lpm NC; cp4 23:04 BP 204 / 99; Pulse 94; Resp 26; Pulse Ox 93% on 2 lpm NC; cp4 23:35 BP 197 / 97; Pulse 89; Resp 26; Pulse Ox 93% on 2 lpm NC; cp4 03/16 00:03 BP 176 / 94; Pulse 104; Resp 26; Pulse Ox 94% on 2 lpm NC; cp4 03/15 18:55 Body Mass Index 39.46 (124.74 kg, 177.8 cm) db ED Course: 03/15 18:52 Patient arrived in ED. mr 18:56 [facility] 18:56 Mike Crocker MD is Attending Physician. dr5 19:01 Triage completed. db 19:02 Arm band placed on Patient placed in an exam room. db 19:05 Divina Tobias is Primary Nurse. cp4 19:08 Inserted saline lock: 22 gauge in right antecubital area, using aseptic technique. cp4 Blood collected. Flushed with 10 mL NS. 19:19 EKG done, by ED staff, reviewed by Werner MOLINA. mm11 19:38 XRAY Chest (1 view) In Process Unspecified. EDMS 20:23 Mcintyre cath inserted, using sterile technique, 16 Fr., by sc, balloon inflated, to cm10 gravity drainage, urine specimen collected. returned clear yellow urine. 21:06 Brenton Osborn MD is Hospitalizing Provider. dr5 23:03 Placed in gown. Bed in low position. Call light in reach. Side rails up X2. Provided cp4 Education on: admission. 23:03 No provider procedures requiring assistance completed. Patient admitted, IV remains in cp4 place. Administered Medications: 19: Drug: Furosemide IVP 40 mg IVP once; give over 2 minutes Route: IVP; Site: right cp4 antecubital; 21:28 Follow up: Response: No adverse reaction cp4 19: Drug: Nitroglycerin IV 5 mcg/min IV at calculated rate See Administration Instructions; cp4 Standard concentration 50mg/250mL; Recommended max rate 200 mcg/min; max rate for Angina 400mcg/min; Titrate 5 mcg/min q5min to achieve goal (see titration policy); Goal parameter SBP less than 160 bpm or resolution of chest pain; low-sorbing IV tubing. Route: IV; Rate: calculated rate; Site: right antecubital; 20:22 Follow up: Rate change 7.5 mcg/min cp4 21:28 Follow up: Response: No adverse reaction; Blood pressure is lowered cp4 03/16 00:05 Follow up: IV Status: Order to discontinue infusion cp4 03/15 20:22 Drug: Furosemide IVP 40 mg IVP once; give over 2 minutes Route: IVP; Site: right cp4 antecubital; 21:28 Follow up: Response: No adverse reaction cp4 Medication: 23:03 VIS not applicable for this client. cp4 Output: 20:25 Urine: 700ml (Mcintyre); Total: 700ml. cp4 22:47 Urine: 1600ml (Mcintyre); Total: 2300ml. cp4 03/16 00:04 Urine: 600ml (Mcintyre); Total: 2900ml. cp4 Outcome: 03/15 21:12 Decision to Hospitalize by Provider. dr5 03/16 00:04 Admitted to ICU accompanied by nurse, via stretcher, with oxygen, on monitor, with cp4 chart, Report called to Cipriano Condition: stable Instructed on the need for admit, 00:22 Patient left the ED. 4 Signatures: Dispatcher [employer] EDCO Flora Herrera, Joel Maldonado mr HarrisDarlin, RN RN Wen Appiah RN RN cmDivina Mata cp4 Werner Newell, [facility]-C [facility]-Cdr5 derek lee mm11
--- NOTE | 2024-03-15 22:08 | P.HP ---
Certification for Inpatient Patient admitted to: Inpatient With expected LOS: >2 Midnights Practitioner: I am a practitioner with admitting privileges, knowledge of patient current condition, hospital course, and medical plan of care. Services: Services provided to patient in accordance with Admission requirements found in Title 42 Section 412.3 of the Code of Federal Regulations Patient History Date of Service: 03/16/24 Reason for admission: SOB History of Present Illness: 53 yrs old Male with past medical history of diabetes, hypertension, CHF, medication noncompliance came to ER with shortness of breath. Patient states that he has not been taking any medications recently. Started having shortness of breath for the last 1 month. Denies any fever or chills. No chest pain. Patient complains of shortness of breath even with minimal exertion.Patient reports that he is not able to take 2 steps without getting short of breath and is able to speak in 3-4 word sentences after ambulating to bed. Patient was assessed in the ER and is admitted for further management of CHF exacerbation and hypertensive emergency Patient was started on nitroglycerin drip and was admitted to the ICU Allergies No Known Allergies Allergy (Unverified 03/15/24 22:19) Home medications list reviewed: Yes Home Medications: NK [No Home Meds] 03/16/24 - Past Medical/Surgical History Past Medical History: Reviewed- Non-Contributory -: Hypertension -: gel-uyneyil-fwbbqumhp diabetes Past Surgical History: Reviewed- Non-Contributory -: neck cyst removal Psychosocial/ Personal History: Patient lives at home with his , 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 - Family History Father -: Diabetes Mother -: Heart disease - Social History Smoking Status: Never smoker Alcohol use: Yes CD- Drugs: No Caffeine use: Yes Review of Systems 10-point ROS is otherwise unremarkable Physical Examination - Vital Signs Temperature: 98.2 F Blood Pressure: 220/110 Pulse: 78 Respirations: 18 Pulse Ox (%): 92 - Physical Exam General: Alert, Cooperative, Moderate distress, Obese HEENT: Atraumatic, Normocephalic Neck: Supple Respiratory: Diminished, Crackles/rales Cardiovascular: Regular rate/rhythm, Normal S1 S2 Capillary refill: <2 Seconds Gastrointestinal: Soft and benign, W/out hepatosplenomegaly Musculoskeletal: No clubbing, Swelling Integumentary: No rashes Neurological: Normal speech, Normal strength at 5/5 x4 extr, Normal reflexes 2+ Lymphatics: No axilla or inguinal lymphadenopathy - Studies Laboratory Data (last 24 hrs) 03/15/24 03/15/24 19:07 19:07 WBC 10.90 Hgb 15.7 Hct 46.1 Plt Count 311 Sodium 140 Potassium 3.5 BUN 18 Creatinine 1.83 H Glucose 189 H Total Bilirubin 0.6 AST 15 ALT < 14 L Alkaline Phosphatase 157 H Assessment and Plan - Plan Acute on chronic CHF possibly systolic/diastolic Monitor closely on telemetry Started on aggressive diuresis X-ray findings consistent with CHF/pulmonary edema Continue home medications Titrate as needed Will obtain an echocardiogram Cardiology consult Acute hypoxic respiratory failure Oxygen supplementation Will try to wean down oxygen requirement Hypertensive emergency Started on nitroglycerin drip Antihypertensives titrated Continue home medications and titrate as needed Hyperlipidemia Continue statin Acute kidney injury on CKD stage II Monitor renal parameters Electrolytes monitor and replace accordingly Diabetes Insulin sliding scale Accu-Chek before every meal and at bedtime Medication noncompliance Discussed about the need for regular medications and follow-up GI/DVT prophylaxis Advanced directive full code Discharge Plan: Home Plan to discharge in: 48 Hours - Advance Directives Does patient have a Living Will: No Does patient have a Durable POA for Healthcare: No - Code Status/Comfort Care Code Status: Full Code Time Spent Managing Pts Care (In Minutes): 62
[2024-03-15] MEDS ORDERED: ACETAMINOPHEN 500 MG TAB PO PRN (22:10)
[2024-03-15] MEDS ORDERED: ONDANSETRON 4 MG/2 ML VIAL IV PRN (22:10)
[2024-03-15] MEDS ORDERED: ALBUTEROL 2.5 MG/3 ML NEB SOL NEB PRN (22:10)
[2024-03-15] MEDS ORDERED: IPRATROPIUM BROM 0.5MG/2.5ML NEB PRN (22:10)
[2024-03-15] MEDS: carvediloL 12.5 MG TAB PO SCH (22:17)
[2024-03-15] MEDS: LOSARTAN POTASSIUM 50 MG TABLET PO SCH (22:17)
[2024-03-15] MEDS: carvediloL 6.25 MG TAB PO SCH (23:00)
[2024-03-15] MEDS ORDERED: LOSARTAN POTASSIUM 50 MG TABLET ONE (23:54)
[2024-03-15] MEDS ORDERED: carvediloL 6.25 MG TAB ONE (23:54)
[2024-03-16 00:35] LABS: Specific Gravity 1.011 (1.005-1.030); Sqamous Epithelial None Seen /HPF (None Seen); Urine Bacteria <20 /HPF (<20); Urine Bilirubin NEGATIVE (Negative); Urine Blood 2+ (Negative); Urine Clarity Clear (Clear); Urine Color Light-Yellow (Yellow); Urine Culture Reflex Order NOT NEEDED; Urine Glucose 3+ (Negative); Urine Ketones NEGATIVE (Negative); Urine Microscopic Reflex YN ORDER UMIC; Urine Mucus Slight /HPF (None Seen); Urine Nitrite NEGATIVE (Negative); Urine Protein 3+ (Negative); Urine Urobilinogen Normal (Normal); Urine WBC <5 /HPF (<5)
[2024-03-16] MEDS: NITROGLYCERIN/D5W 50 MG/250 ML BTL IV SCH (00:36)
[2024-03-16] MEDS: FUROSEMIDE 40 MG/4 ML VIAL IV SCH (01:16)
[2024-03-16 05:50] LABS: Absolute Basophils 0.1 K/uL (0-0.5); Absolute Eosinophils 0.1 K/uL (0-0.5); Absolute Lymphocytes (CBC) 2.6 K/uL (0.7-4.9); Absolute Monocytes 0.8 K/uL (0.1-1.3); Absolute Neutrophil 8.6 K/uL (1.8-8.0); Basophils % 0.6 % (0-1.3); Eosinophils % 0.7 % (0-4.4); Hemoglobin 14.1 g/dL (13.6-17.9); Lymphocytes % 21.6 % (15.3-44.8); MCH 29.9 pg (27.0-35.0); MCHC 33.6 g/dL (32.0-36.0); MCV 88.8 fL (80-100); MPV 8.5 fL (7.6-11.3); Monocytes % 6.4 % (3.3-12.3); Neutrophils % 70.7 % (41.7-73.7); Platelets 283 thou/uL (152-406); RBC Red Blood Cell Count 4.73 M/uL (4.33-5.43); Red Cell Distribution Width 14.3 % (12.1-15.2)
[2024-03-16 06:03] LABS: AST/SGOT 15 U/L (15-37); Albumin 2.1 g/dL (3.4-5.0); Albumin/Globulin Ratio 0.5 (1.1-1.8); Alkaline Phosphatase 151 U/L (45-117); Anion Gap 10.3 mEq/L (5.0-15.0); BUN Blood Urea Nitrogen 17 mg/dL (7-18); Bicarbonate 27 mEq/L (21-32); Bilirubin Total 0.8 mg/dL (0.2-1.0); Globulin 4.2 g/dL (2.3-3.5); Glomerular Filtration Rate 46 ml/min (=/>90); Glucose Level 205 mg/dL (74-106); Magnesium 2.1 mg/dL (1.6-2.4); Phosphorus 3.7 mg/dL (2.5-4.9); Potassium 3.3 mEq/L (3.5-5.1); Protein, Total 6.3 g/dL (6.4-8.2); Sodium Level 142 mEq/L (136-145)
[2024-03-16 06:04] LABS: ALT/SGPT < 14 U/L (16-61)
[2024-03-16] MEDS: POTASSIUM 25 MEQ EFFERV TAB PO ONE (06:27)
--- NOTE | 2024-03-16 07:40 | P.PN ---
Date of Service: 03/16/24 Subjective: Continues with some dyspnea, slightly improved this morning Breathing, swelling has been progressively been getting worse over the last few months Breathing worsened with light activity and talking Hasn't taken home meds in several months ROS: 10 point ROS as noted above, otherwise negative Physical Exam: GEN: Alert, NAD, oriented x3 CV: Regular rate and rhythm, 2+ bilateral lower extremity edema Pulm: Nonlabored respirations on 2L NC, diminished bilaterally, worse on left ABD: soft, nontender, nondistended Neuro: Normal speech, normal affect Problem List: Acute hypoxic respiratory failure secondary to acute on chronic diastolic CHF exacerbation Hypertensive emergency Medication noncompliance BEVERLY of CKD2 Hypokalemia NIDDM2 Hyperlipidemia Hx of CVA (Left MCA territory 10/2022) Hx of Vitamin B12 deficiency Acute hypoxic respiratory failure secondary to acute on chronic diastolic CHF exacerbation Hypertensive emergency Medication noncompliance on admission, presents with worsening dyspnea, lower extremity edema thats been progressively worsening over the last few months. Breathing worsened with light activity and talking. Only able to walk few steps before getting SOB. Noncompliant on home medications. Reports not taking any home meds for at least the last 6 months mostly secondary to cost. CXR (03/15): Bilateral pleural effusions L > R Echo with normal EF and grade 2 diastolic dysfunction, elevated filling pressure BP significantly elevated in 200-230s in ED. Started on nitro drip and admitted to ICU continues on nitro drip continue IV lasix 40 mg q8h continue losartan, coreg Hydralazine 25 mg TID added per cardio 03/16 Cardiology consulted BEVERLY of CKD2 Hypokalemia continue to monitor renal function monitor and replete electrolytes continue IV Lasix 40 mg q8h Creatinine 1.6 at OSH on 03/15 NIDDM2 accu-cheks, SSI Hyperlipidemia Hx of CVA (Left MCA territory 10/2022) Hx of Vitamin B12 deficiency confirm home meds, restart as appropriate VTE: Lovenox Code: Full Dispo: Home, ~3 days Pending cardiac recs, diuresis continue ICU level of care I have personally spent 45 minutes of critical care time, in evaluation and management of this critically ill patients condition requiring use of high risk/critical medication - hypertensive emergency requiring NTG drip.
[2024-03-16] MEDS: ENOXAPARIN 40 MG/0.4 ML SQ SCH (08:17)
[2024-03-16] MEDS: HYDRALAZINE HCL 25 MG TABLET PO SCH (12:14)
--- NOTE | 2024-03-16 12:24 | P.CNS ---
Date of Consult: 03/16/24 Chief Complaint: SOB History of Present Illness: Patient with PMH of heart failure, presented with worsening SOB and MATA, denies having chest pain, no palpitations, no syncope. 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 moist/pink, EOMI, Sclerae nonicteric Neck: Supple, 2+ carotid pulse no bruit, No LAD, Without JVD or thyroid abnormality Respiratory: Clear to auscultation bilaterally, Normal air movement Cardiovascular: Regular rate/rhythm, Normal S1 S2 Gastrointestinal: Normal bowel sounds, No tenderness Musculoskeletal: No tenderness Integumentary: No rashes Neurological: Normal gait, Normal speech, Normal tone, Normal affect Lymphatics: No axilla or inguinal lymphadenopathy Laboratory Data (last 24 hrs) 03/15/24 03/15/24 19:07 19:07 WBC 10.90 Hgb 15.7 Hct 46.1 Plt Count 311 Sodium 140 Potassium 3.5 BUN 18 Creatinine 1.83 H Glucose 189 H Total Bilirubin 0.6 AST 15 ALT < 14 L Alkaline Phosphatase 157 H - Problems (1) Acute on chronic diastolic heart failure Current Visit: Yes Status: Acute Plan: Echo shows normal EF with grade 2 DD, elevated filling pressure increase lasix to 40 mg IV q8 hours monitor input and output and electrolytes. continue coreg 12.5 mg po BID Continue Losartan 50 mg daily add hydralazine 25 mg TID.
--- NOTE | 2024-03-16 13:55 | ECHO ---
HEIGHT: 5 ft 10 in WEIGHT: 281 lb 0 oz DATE OF STUDY: 03/16/[address]: Terry Osborn DO 2-DIMENSIONAL: YES M.MODE: YES DOPPLER: YES COLOR FLOW: YES TDS: NO PORTABLE: YES DEFINITY: NO BUBBLE STUDY: NO DIAGNOSIS: CONGESTIVE HEART FAILURE CARDIAC HISTORY: CATHERIZATION: NO SURGERY: NO PROSTHETIC VALVE: NO PACEMAKER: NO MEASUREMENTS (cm) DIASTOLIC (NORMALS) SYSTOLIC (NORMALS) IVSd 1.4 (0.6-1.2) LA Diam 3.5 (1.9-4.0) LVEF 60-65% LVIDd 4.8 (3.5-5.7) LVIDs 3.1 (2.0-3.5) %FS 35% LVPWd 1.5 (0.6-1.2) Ao Diam 2.9 (2.0-3.7) 2 DIMENSIONAL ASSESSMENT: RIGHT ATRIUM: NORMAL LEFT ATRIUM: NORMAL RIGHT VENTRICLE: NORMAL LEFT VENTRICLE: MODERATE LEFT VENTRICULAR HYPERTOPHY TRICUSPID VALVE: MILD TRICUSPID REGURGITATION MITRAL VALVE: NORMAL PULMONIC VALVE: NORMAL AORTIC VALVE: NORMAL PERICARDIAL EFFUSION: NONE AORTIC ROOT: NORMAL LEFT VENTRICULAR WALL MOTION: NORMAL. DOPPLER/COLOR FLOW: GRADE II DIASOTLIC DYSFUNCTION. COMMENTS: 1. MODERATE LEFT VENTRICULAR HYPERTOPHY. 2. NORMAL LEFT VENTRICULAR SYSTOLIC FUNCTION, EJECTION FRACTION 60-65%, NORMAL WALL MOTION. 3. GRADE II DIASTOLIC DYSFUNCTION. 4. ELEVATED FILLING PRESSURE (RIGHT ATRIAL PRESURE 15-20mmHg) TECHNOLOGIST: BASHIR CROWE
[2024-03-16] MEDS: carvediloL 12.5 MG TAB PO SCH (16:47)
[2024-03-17 06:04] LABS: Absolute Eosinophils 0.2 K/uL (0-0.5); Absolute Lymphocytes (CBC) 3.1 K/uL (0.7-4.9); Absolute Monocytes 0.8 K/uL (0.1-1.3); Absolute Neutrophil 7.1 K/uL (1.8-8.0); Basophils % 0.4 % (0-1.3); Eosinophils % 1.8 % (0-4.4); Hematocrit 39.7 % (39.6-49.0); Hemoglobin 13.3 g/dL (13.6-17.9); Lymphocytes % 27.9 % (15.3-44.8); MCH 29.8 pg (27.0-35.0); MCHC 33.6 g/dL (32.0-36.0); MCV 88.5 fL (80-100); Monocytes % 7.3 % (3.3-12.3); Neutrophils % 62.6 % (41.7-73.7); Platelets 295 thou/uL (152-406); RBC Red Blood Cell Count 4.48 M/uL (4.33-5.43); Red Cell Distribution Width 14.1 % (12.1-15.2)
[2024-03-17 06:21] LABS: AST/SGOT 12 U/L (15-37); Albumin 2.1 g/dL (3.4-5.0); Albumin/Globulin Ratio 0.5 (1.1-1.8); Alkaline Phosphatase 119 U/L (45-117); Anion Gap 9.3 mEq/L (5.0-15.0); BUN Blood Urea Nitrogen 20 mg/dL (7-18); Bicarbonate 29 mEq/L (21-32); Bilirubin Total 0.9 mg/dL (0.2-1.0); Glomerular Filtration Rate 40 ml/min (=/>90); Glucose Level 163 mg/dL (74-106); Magnesium 2.2 mg/dL (1.6-2.4); NT PRO-BNP 1818 pg/mL (<125); Phosphorus 3.8 mg/dL (2.5-4.9); Potassium 3.3 mEq/L (3.5-5.1); Protein, Total 6.1 g/dL (6.4-8.2); Sodium Level 141 mEq/L (136-145)
[2024-03-17 06:50] LABS: ALT/SGPT < 14 U/L (16-61)
--- NOTE | 2024-03-17 08:07 | P.PN ---
Date of Service: 03/17/24 Subjective: feels slightly easier to take a deeper breath feels left hand is slightly more erythematous today denies hand pains or itchyness denies rash at home prior to hospitalization ROS: 10 point ROS as noted above, otherwise negative Physical Exam: GEN: Alert, NAD, oriented x3 CV: Regular rate and rhythm, 1+ bilateral lower extremity edema Pulm: Nonlabored respirations on 4L NC, diminished bilaterally, worse on left ABD: soft, nontender, nondistended Integumentary: Left hand erythema Neuro: Normal speech, normal affect Problem List: Acute hypoxic respiratory failure secondary to acute on chronic diastolic CHF e xacerbation Hypertensive emergency Medication noncompliance BEVERLY of CKD2 Hypokalemia Left hand erythema NIDDM2 Hyperlipidemia Hx of CVA (Left MCA territory 10/2022) Hx of Vitamin B12 deficiency Acute hypoxic respiratory failure secondary to acute on chronic diastolic CHF exacerbation Hypertensive emergency Medication noncompliance on admission, presents with worsening dyspnea, lower extremity edema thats been progressively worsening over the last few months. Breathing worsened with light activity and talking. Only able to walk few steps before getting SOB. Noncompliant on home medications. Reports not taking any home meds for at least the last 6 months mostly secondary to cost. CXR (03/15): Bilateral pleural effusions L > R Echo with normal EF and grade 2 diastolic dysfunction, elevated filling pressure BP significantly elevated in 200-230s in ED. Started on nitro drip and admitted to ICU continues on nitro drip continue IV lasix 40 mg q8h continue losartan, coreg Hydralazine 25 mg TID added per cardio 03/16 Cardiology consulted BEVERLY of CKD2 Hypokalemia continue to monitor renal function monitor and replete electrolytes abdominal u/s negative for any acute findings Creatinine 1.6 at OSH on 03/15 continue IV Lasix 40 mg q8h Consult nephrology Left hand erythema reports dealing with some left hand redness. Denies any pains or itchyness. Denies rash at home. Reports similar episode during last hospitalization Continue to monitor. has IV in forearm, likely contributing/cause no numbness/tingling NIDDM2 accu-cheks, SSI Hyperlipidemia Hx of CVA (Left MCA territory 10/2022) Hx of Vitamin B12 deficiency confirm home meds, restart as appropriate VTE: Lovenox Code: Full Dispo: Home, ~2-3 days Pending cardiac recs, diuresis continue ICU level of care
[2024-03-17] MEDS: POTASSIUM CL SA 10 MEQ TAB PO ONE (08:16)
--- NOTE | 2024-03-17 11:19 | RAD REPORT ---
EXAM:Abdomen Pelvis Scan US CLINICAL HISTORY: Abdominal pain. Possible renal arterial stenosis COMPARISON: none TECHNIQUE: Vascular sonogram renal arteries FINDINGS: Examination was somewhat limited secondary to body habitus. The velocity of the right renal artery 69 cm/s The velocity of the left renal artery 56 cm/s Renal artery/aorta ratio is within normal limits Right kidney measures 11 cm with a normal echotexture. Left kidney measures 12 cm with a normal echotexture. No hydronephrosis Bladder is decompressed and poorly evaluated. IMPRESSION: No sonographic evidence of significant renal arterial stenosis
[2024-03-17] MEDS: ISOSORBIDE DINIT 20 MG TAB PO SCH (13:00)
[2024-03-17] MEDS ORDERED: ISOSORBIDE DINIT 20 MG TAB PO SCH (13:00)
--- NOTE | 2024-03-17 13:00 | P.PN ---
Subjective Date of Service: 03/17/24 Chief Complaint: SOB Subjective: No new changes, No C/O voiced, Tolerating diet, Ambulating, Improving Review of Systems 10-point ROS is otherwise unremarkable Physical Examination - Vital Signs Temperature: 97.6 F Blood Pressure: 160/81 Pulse: 75 Respirations: 26 Pulse Ox (%): 98 - Physical Exam General: Alert, In no apparent distress HEENT: Atraumatic, PERRLA, EOMI Neck: Supple, JVD not distended Respiratory: Clear to auscultation bilaterally, Normal air movement Cardiovascular: Regular rate/rhythm, Normal S1 S2 Gastrointestinal: Normal bowel sounds, No tenderness Musculoskeletal: No tenderness Integumentary: No rashes Neurological: Normal speech, Normal tone, Normal affect Lymphatics: No axilla or inguinal lymphadenopathy - Studies Medications List Reviewed: Yes Assessment And Plan - Current Problems (Diagnosis) (1) Acute on chronic diastolic heart failure Current Visit: Yes Status: Acute Plan: Echo shows normal EF with grade 2 DD, elevated filling pressure increase lasix to 60 mg IV q8 hours monitor input and output and electrolytes. continue coreg 12.5 mg po BID Continue Losartan 50 mg daily hydralazine 25 mg TID. add Isordil 30 mg q6 hours
[2024-03-17] MEDS: FUROSEMIDE 40 MG/4 ML VIAL IV SCH (17:02)
[2024-03-17] MEDS: WIXELA IH SCH (20:02)
--- NOTE | 2024-03-18 00:11 | CON ---
Date of Consultation: 03/17/2024 Chief Complaint: Acute kidney injury. History Of Present Illness: The patient is a 53-year-old man with past medical history of diabetes m ellitus, hypertension, congestive heart failure, diastolic dysfunction, medication noncompliance, the patient came to emergency room because of shortness of breath. Apparently, he was not taking any me dication in the recent past. He became short of breath and developed progressively worse shortness o f breath and fatigue over last month. Denies any fever, chills, cough, hemoptysis, syncope, chest pa in, palpitation, nausea, vomiting. The patient reports severe weakness and fatigue. The patient was admitted to ICU and he is on IV Lasix for congestive heart failure. Past Medical History: Hypertension, [id number] diabetes mellitus. Past Surgical History: Neck cyst removal. Family History: Father, diabetes mellitus. Mother, heart disease. Social History: Never smoker. Denies drugs. Has history of alcohol and caffeine use. Review of Systems: Constitutional: Denies fever or chills. Eyes: Denies vision changes. Ears, Nose, Mouth, and Throat: Denies sore throat or earache. Respiratory: Has shortness of breath at rest, PND and orthopnea is improving over last 24 hours when treatment with IV Lasix was started. GI: Denies hematemesis or melena. Denies hematuria or dysuria. All other systems reviewed and all are negative. Physical Examination: General: Alert, in moderate respiratory distress on O2 nasal cannula. Obese. HEENT: Atraumatic, normocephalic. Neck: Supple. Respiratory: Crackles bilaterally at bases. Cardiovascular: S1, S2. Regular rate and rhythm. Abdomen: Soft, obese, nontender. No rebound. No guarding. Extremities: Edema present. Neurologic: Moving extremities. Cranial nerves intact. Laboratory Data: WBC 10.9, hemoglobin 15.7, platelets 311, hematocrit 46.1, BUN 18, creatinine 1.8, glucose 189, total bilirubin 0.6, AST 157, ALT less than 14. Impression And Plan: 1. Acute on chronic congestive heart failure, systolic and diastolic dysfunction, most likely a cause of congestive heart failure with exacerbation. The patient has pulmonary edema. Chest x-ray show c ongestive heart failure and pulmonary edema. Continue IV Lasix. Monitor electrolytes and continue s upplementation. Cardiology consultation was requested. 2. Acute hypoxemic respiratory failure. Oxygen supplementation. Continue to wean down according to oxygen requirement. 3. Hypertensive emergency. The patient was started on nitroglycerin drip and antihypertensive medica tion titrated. Continue home medication and titrate medication as needed. 4. Hyperlipidemia. Continue statin. 5. Acute kidney injury, underlying stage 2 chronic kidney disease. Monitor renal parameters. 6. Diabetes mellitus. Continue insulin sliding scale. 7. Medication noncompliance. The patient discussed history of noncompliance with primary team. CYN/STEVE Voice ID: [id number] Report ID: [id number]
[2024-03-18 06:00] LABS: Absolute Basophils 0.1 K/uL (0-0.5); Absolute Eosinophils 0.2 K/uL (0-0.5); Absolute Lymphocytes (CBC) 3.1 K/uL (0.7-4.9); Absolute Monocytes 0.8 K/uL (0.1-1.3); Absolute Neutrophil 6.8 K/uL (1.8-8.0); Basophils % 0.7 % (0-1.3); Eosinophils % 1.4 % (0-4.4); Hematocrit 39.4 % (39.6-49.0); Hemoglobin 13.2 g/dL (13.6-17.9); Lymphocytes % 28.4 % (15.3-44.8); MCH 29.9 pg (27.0-35.0); MCHC 33.6 g/dL (32.0-36.0); MCV 89.2 fL (80-100); MPV 8.6 fL (7.6-11.3); Monocytes % 7.3 % (3.3-12.3); Neutrophils % 62.2 % (41.7-73.7); Platelets 301 thou/uL (152-406); RBC Red Blood Cell Count 4.42 M/uL (4.33-5.43); Red Cell Distribution Width 14.1 % (12.1-15.2)
[2024-03-18 06:17] LABS: Anion Gap 9.7 mEq/L (5.0-15.0); Magnesium 2.3 mg/dL (1.6-2.4); Potassium 3.7 mEq/L (3.5-5.1)
--- NOTE | 2024-03-18 07:32 | P.PN ---
Date of Service: 03/18/24 Subjective: breathing feels slightly easier BP improving, more stable in 140-160s Left hand less swollen, continues with redness lower extremity edema slowly improving denies any new / worsening symptoms ROS: 10 point ROS as noted above, otherwise negative Physical Exam: GEN: Alert, NAD, oriented x3 CV: Regular rate and rhythm, 1-2+ bilateral lower extremity edema Pulm: Nonlabored respirations on 3L NC, diminished bilaterally, L>R Integumentary: Left hand erythema, nontender, sensation intact Neuro: Normal speech, normal affect rees in place Problem List: Acute hypoxic respiratory failure secondary to acute on chronic diastolic CHF exacerbation Hypertensive emergency, resolved Medication noncompliance EBVERLY of CKD2 Hypokalemia Left hand erythema NIDDM2 Hyperlipidemia Hx of CVA (Left MCA territory 10/2022) Hx of Vitamin B12 deficiency Acute hypoxic respiratory failure secondary to acute on chronic diastolic CHF exacerbation Hypertensive emergency, resolved Medication noncompliance on admission, worsening dyspnea, progressive lower extremity edema over the last few months. Only able to walk few steps before getting SOB. Noncompliant on home medications. Reports not taking any home meds for at least the last 6 months mostly secondary to cost. CXR (03/15): Bilateral pleural effusions L > R Echo with normal EF and grade 2 diastolic dysfunction, elevated filling pressure BP significantly elevated in 200-230s in ED. started on nitro drip - weaned down and off 11pm (03/17) continue losartan, coreg Hydralazine 25 mg TID added per cardio (03/16) Cardiology consulted IV lasix increased to 60 mg q8h (03/17) Isosorbide added per cardio (03/17) BP improving; more stable in 140-160s BEVERLY of CKD2 Hypokalemia continue to monitor renal function monitor and replete electrolytes abdominal u/s negative for any acute findings IV lasix increased to 60 mg q8h (03/17) Nephrology consulted Left hand erythema reports dealing with some left hand redness. Denies any pains or itchiness. Denies rash at home. Reports similar episode during last hospitalization Continue to monitor. has IV in forearm, likely contributing/cause no numbness/tingling. Less swollen today. NIDDM2 accu-cheks, SSI Hyperlipidemia Hx of CVA (Left MCA territory 10/2022) Hx of Vitamin B12 deficiency confirm home meds, restart as appropriate VTE: Lovenox Code: Full Dispo: Home, ~2 days Pending further diuresis, BP stable, renal function improves Possible downgrade to floor later this afternoon
[2024-03-18] MEDS ORDERED: ALBUTEROL 2.5 MG/3 ML NEB SOL NEB PRN (08:01)
[2024-03-18] MEDS: POTASSIUM CL SA 10 MEQ TAB PO ONE (08:12)
--- NOTE | 2024-03-18 22:41 | PN ---
Subjective: No overnight events. The patient is in negative balance. Creatinine started increasing . Continue diuretic. Objective: Vital Signs: Temperature 98.2, pulse 68, blood pressure 134/77. General: Awake and alert, not in distress. Neck: Supple. No elevated JVD. Heart: Regular rate and rhythm. Normal S1, S2. Chest: Clear to auscultation bilaterally. No rales or wheezes. Abdomen: Distended, nontender. Extremities: +2 edema. Laboratory Data: White count 10, hemoglobin 13.2, sodium 137, potassium 3.7, BUN 25, creatinine of 2 , blood sugar 118. Assessment And Plan: 1. Acute kidney injury versus a progressive diabetic and hypertension nephrosclerosis. Creatinine re latively stable on . Continue diuretic. Monitor INR. We will order renal ultrasound and urine protein creatinine. 2. Fluid overload. Continue diuretic. Transthoracic echo showed increased pressure, ejec tion fraction of 55%. 3. Diabetes mellitus. Continue insulin. 4. Hypertension. Blood pressure better controlled. Continue diuretic. Order . Thanks for allowing to participate in the patient's care. Total time spent 55 minutes including docu mentation, reviewing labs, and placing orders. SHIRA/STEVE Voice ID: [id number] Report ID: [id number]
[2024-03-19 06:55] LABS: Sqamous Epithelial <5 /HPF (None Seen); Urine Bacteria None Seen /HPF (<20); Urine Bilirubin NEGATIVE (Negative); Urine Blood 1+ (Negative); Urine Clarity Extremely Turbid (Clear); Urine Color Light-Yellow (Yellow); Urine Culture Reflex Order REFLEXED; Urine Glucose 1+ (Negative); Urine Granular Casts 0-5 /LPF (None Seen); Urine Ketones NEGATIVE (Negative); Urine Microscopic Reflex YN ORDER UMIC; Urine Mucus Slight /HPF (None Seen); Urine Nitrite NEGATIVE (Negative); Urine Protein 2+ (Negative); Urine RBC 21-50 /HPF (None Seen); Urine Sperm Present (None Seen); Urine Urobilinogen Normal (Normal); Urine WBC 20-50 /HPF (<5); Urine pH 5.5 (5.0-7.0)
[2024-03-19 07:25] LABS: Anion Gap 8.6 mEq/L (5.0-15.0); Magnesium 2.3 mg/dL (1.6-2.4); Potassium 3.6 mEq/L (3.5-5.1)
[2024-03-19 07:35] LABS: Thyroid Stimulating Hormone 2.9 uIU/mL (0.358-3.740); Uric Acid 7.5 mg/dL (3.5-7.2)
[2024-03-19 11:39] LABS: UR PROTEIN 244.3 mg/dL (<11.9); Urine Protein/Creatinine Ratio 3.13 ratio (<0.15)
--- NOTE | 2024-03-19 11:58 | P.PN ---
Date of Service: 03/19/24 Subjective: lower extremity edema improving desat to 80 this morning while sleeping and placed back on oxygen voiding without issues since rees removal ~650 UOP after rees removal ROS: 10 point ROS as noted above, otherwise negative Physical Exam: GEN: Alert, NAD, oriented x3 CV: Regular rate and rhythm, 1-2+ bilateral lower extremity edema Pulm: Nonlabored respirations on 3L NC, diminished bilaterally, L>R Integumentary: Left hand slight erythema, nontender, sensation intact Neuro: Normal speech, normal affect Problem List: Acute hypoxic respiratory failure secondary to acute on chronic diastolic CHF exacerbation Hypertensive emergency, resolved Medication noncompliance BEVERLY of CKD2 Hypokalemia Left hand erythema NIDDM2 Hyperlipidemia Hx of CVA (Left MCA territory 10/2022) Hx of Vitamin B12 deficiency Acute hypoxic respiratory failure secondary to acute on chronic diastolic CHF exacerbation Hypertensive emergency, resolved Medication noncompliance on admission, worsening dyspnea, progressive lower extremity edema over the last few months. Only able to walk few steps before getting SOB. Noncompliant on home medications. Reports not taking any home meds for at least the last 6 months mostly secondary to cost. CXR (03/15): Bilateral pleural effusions L > R. Echo with normal EF and grade 2 diastolic dysfunction, elevated filling pressure. BP significantly elevated in 200-230s in ED. started on nitro drip - weaned down and off 11pm (03/17) continue losartan, coreg Hydralazine 25 mg TID added per cardio (03/16) Cardiology consulted IV lasix increased to 60 mg q8h (03/17) Isosorbide added per cardio (03/17) BP stable in 140-160s BEVERLY of CKD2 Hypokalemia continue to monitor renal function. monitor and replete electrolytes. Urine/Protein creatinine ordered per nephro Initial UA unremarkable. Repeat UA concerning for possible infection. Asymptomatic - Follow urine culture for now Abdominal u/s negative for any acute findings. IV lasix increased to 60 mg q8h (03/17) Rees dc'd 03/18; voiding without issues post Rees removal Nephrology consulted. Left hand erythema reports dealing with some left hand redness. Denies any pains or itchiness. Denies rash at home. Reports similar episode during last hospitalization Continue to monitor. has IV in forearm, likely contributing/cause no numbness/tingling. Less swollen today. NIDDM2 accu-cheks, SSI Hyperlipidemia Hx of CVA (Left MCA territory 10/2022) Hx of Vitamin B12 deficiency confirm home meds, restart as appropriate VTE: Lovenox Code: Full Dispo: Home, ~2 days Pending further diuresis, BP stable, renal function improves
[2024-03-19] MEDS ORDERED: GLUCAGON 1 MG/VIAL IM PRN (12:13)
[2024-03-19] MEDS ORDERED: D10W 125 ML IV PRN (12:13)
[2024-03-19] MEDS: INSULIN REGULAR (HUMAN) 100 UNIT/ML SQ SCH (12:26)
[2024-03-19] MEDS: POTASSIUM CL SA 10 MEQ TAB PO ONE (12:26)
--- NOTE | 2024-03-19 12:48 | P.PN ---
Subjective Date of Service: 03/19/24 Chief Complaint: SOB Subjective: No new changes, No C/O voiced, Tolerating diet, Ambulating, Improving Review of Systems 10-point ROS is otherwise unremarkable Physical Examination - Vital Signs Temperature: 98.5 F Blood Pressure: 128/62 Pulse: 69 Respirations: 18 Pulse Ox (%): 94 - Physical Exam General: Alert, In no apparent distress HEENT: Atraumatic, PERRLA, EOMI Neck: Supple, JVD not distended Respiratory: Clear to auscultation bilaterally, Normal air movement Cardiovascular: Regular rate/rhythm, Normal S1 S2 Gastrointestinal: Normal bowel sounds, No tenderness Musculoskeletal: No tenderness Integumentary: No rashes Neurological: Normal speech, Normal tone, Normal affect Lymphatics: No axilla or inguinal lymphadenopathy - Studies Medications List Reviewed: Yes Assessment And Plan - Current Problems (Diagnosis) (1) Acute on chronic diastolic heart failure Current Visit: Yes Status: Acute Plan: Echo shows normal EF with grade 2 DD, elevated filling pressure continue lasix 60 mg IV q8 hours monitor input and output and electrolytes. continue coreg 12.5 mg po BID Continue Losartan 50 mg daily hydralazine 25 mg TID. Isordil 30 mg q6 hours recommend Metolazone 2.5 mg X1 to help diuresis.
--- NOTE | 2024-03-19 13:50 | RAD REPORT ---
EXAM: Chest Single View HISTORY: f/u opacities COMPARISON: 03/15/2024 FINDINGS: LUNGS/PLEURA: Similar widespread interstitial and airspace disease. Probable bilateral pleural effusi ons. MEDIASTINUM: The mediastinal silhouette is within normal limits. CARDIAC: Enlarged but not well assessed UPPER ABDOMEN: No significant abnormality. BONES: No acute abnormality. LINES/TUBES/OTHER: N/A IMPRESSION: Findings consistent with pulmonary edema similar to 03/15/2024
[2024-03-19] MEDS: SPIRONOLACTONE 25 MG TABLET PO SCH (14:26)
[2024-03-20 07:23] LABS: Hematocrit 38.3 % (39.6-49.0); MCHC 33.8 g/dL (32.0-36.0); MCV 88.6 fL (80-100); Platelets 294 thou/uL (152-406); RBC Red Blood Cell Count 4.33 M/uL (4.33-5.43); Red Cell Distribution Width 14.1 % (12.1-15.2)
[2024-03-20 07:49] LABS: AST/SGOT 11 U/L (15-37); Albumin/Globulin Ratio 0.5 (1.1-1.8); Alkaline Phosphatase 133 U/L (45-117); Anion Gap 7.5 mEq/L (5.0-15.0); BUN Blood Urea Nitrogen 32 mg/dL (7-18); Bicarbonate 31 mEq/L (21-32); Bilirubin Total 0.5 mg/dL (0.2-1.0); Globulin 4.1 g/dL (2.3-3.5); Glomerular Filtration Rate 40 ml/min (=/>90); Glucose Level 153 mg/dL (74-106); Magnesium 2.3 mg/dL (1.6-2.4); NT PRO-BNP 1079 pg/mL (<125); Potassium 3.5 mEq/L (3.5-5.1); Protein, Total 6.1 g/dL (6.4-8.2); Sodium Level 140 mEq/L (136-145)
[2024-03-20 07:54] LABS: ALT/SGPT < 14 U/L (16-61)
--- NOTE | 2024-03-20 08:51 | P.PN ---
Subjective Date of Service: 03/20/24 Chief Complaint: SOB Subjective: No new changes, No C/O voiced, Tolerating diet, Ambulating, Improving Review of Systems 10-point ROS is otherwise unremarkable Physical Examination - Vital Signs Temperature: 97.6 F Blood Pressure: 136/71 Pulse: 91 Respirations: 18 Pulse Ox (%): 91 - Physical Exam General: Alert, In no apparent distress HEENT: Atraumatic, PERRLA, EOMI Neck: Supple, JVD not distended Respiratory: Clear to auscultation bilaterally, Normal air movement Cardiovascular: Regular rate/rhythm, Normal S1 S2 Gastrointestinal: Normal bowel sounds, No tenderness Musculoskeletal: No tenderness Integumentary: No rashes Neurological: Normal speech, Normal tone, Normal affect Lymphatics: No axilla or inguinal lymphadenopathy - Studies Medications List Reviewed: Yes Assessment And Plan - Current Problems (Diagnosis) (1) Acute on chronic diastolic heart failure Current Visit: Yes Status: Acute Plan: Echo shows normal EF with grade 2 DD, elevated filling pressure continue lasix 60 mg IV q8 hours monitor input and output and electrolytes. continue coreg 12.5 mg po BID Continue Losartan 50 mg daily hydralazine 25 mg TID. Isordil 30 mg q6 hours add Metolazone 2.5 mg daily
[2024-03-20] MEDS: METOLAZONE 2.5 MG TABLET PO SCH (09:26)
--- NOTE | 2024-03-20 11:53 | P.PN ---
Date of Service: 03/20/24 Subjective: no acute events slowly improving ROS: 10 point ROS as noted above, otherwise negative Physical Exam: GEN: Alert, NAD, oriented x3 CV: Regular rate and rhythm, 1-2+ bilateral lower extremity edema Pulm: Nonlabored respirations on 3L NC, diminished bilaterally, L>R Integumentary: Left hand slight erythema, nontender, sensation intact Neuro: Normal speech, normal affect Problem List: Acute hypoxic respiratory failure secondary to acute on chronic diastolic CHF exacerbation Hypertensive emergency, resolved Medication noncompliance BEVERLY of CKD2 Hypokalemia Left hand erythema NIDDM2 Hyperlipidemia Hx of CVA (Left MCA territory 10/2022) Hx of Vitamin B12 deficiency Acute hypoxic respiratory failure secondary to acute on chronic diastolic CHF exacerbation Hypertensive emergency, resolved Medication noncompliance on admission, worsening dyspnea, progressive lower extremity edema over the last few months. Only able to walk few steps before getting SOB. Noncompliant on home medications. Reports not taking any home meds for at least the last 6 months mostly secondary to cost. CXR (03/15): Bilateral pleural effusions L > R. Echo with normal EF and grade 2 diastolic dysfunction, elevated filling pressure. BP significantly elevated in 200-230s in ED. started on nitro drip - weaned down and off 11pm (03/17) continue losartan, coreg Hydralazine 25 mg TID added per cardio (03/16) Cardiology consulted IV lasix increased to 60 mg q8h (03/17) Isosorbide added per cardio (03/17) Metolazone 2.5 mg daily added per cardio (03/20-) Continue spironolactone; added 2/2 per nephro BP stable in 140-160s BEVERLY of CKD2 Hypokalemia continue to monitor renal function. monitor and replete electrolytes. Urine/Protein creatinine ordered per nephro Initial UA unremarkable. Repeat UA concerning for possible infection. Asymptomatic - Follow urine culture for now Abdominal u/s negative for any acute findings. IV lasix increased to 60 mg q8h (03/17) Mcintyre dc'd 03/18; voiding without issues post Mcintyre removal Nephrology consulted. Left hand erythema reports dealing with some left hand redness. Denies any pains or itchiness. Denies rash at home. Reports similar episode during last hospitalization Continue to monitor. has IV in forearm, likely contributing/cause no numbness/tingling. Less swollen today. NIDDM2 accu-cheks, SSI Hyperlipidemia Hx of CVA (Left MCA territory 10/2022) Hx of Vitamin B12 deficiency confirm home meds, restart as appropriate VTE: Lovenox Code: Full Dispo: Home, ~2 days Pending further diuresis, BP stable, renal function improves
[2024-03-21 07:17] LABS: Anion Gap 7.4 mEq/L (5.0-15.0); Magnesium 2.3 mg/dL (1.6-2.4); Potassium 3.4 mEq/L (3.5-5.1)
[2024-03-21] MEDS: POTASSIUM CL SA 10 MEQ TAB PO ONE (08:26)
--- NOTE | 2024-03-21 11:38 | P.PN ---
Subjective Date of Service: 03/21/24 Chief Complaint: SOB Subjective: No new changes, No C/O voiced, Tolerating diet, Ambulating, Improving Review of Systems 10-point ROS is otherwise unremarkable Physical Examination - Vital Signs Temperature: 97.6 F Blood Pressure: 177/88 Pulse: 65 Respirations: 18 Pulse Ox (%): 93 - Physical Exam General: Alert, In no apparent distress HEENT: Atraumatic, PERRLA, EOMI Neck: Supple, JVD not distended Respiratory: Clear to auscultation bilaterally, Normal air movement Cardiovascular: Regular rate/rhythm, Normal S1 S2 Gastrointestinal: Normal bowel sounds, No tenderness Musculoskeletal: No tenderness Integumentary: No rashes Neurological: Normal speech, Normal tone, Normal affect Lymphatics: No axilla or inguinal lymphadenopathy - Studies Medications List Reviewed: Yes Assessment And Plan - Current Problems (Diagnosis) (1) Acute on chronic diastolic heart failure Current Visit: Yes Status: Acute Plan: Echo shows normal EF with grade 2 DD, elevated filling pressure increase lasix to 80 mg IV q8 hours please monitor input and output and electrolytes. continue coreg 12.5 mg po BID Continue Losartan 50 mg daily hydralazine 25 mg TID. Isordil 30 mg q6 hours continue Metolazone 2.5 mg daily
--- NOTE | 2024-03-21 12:38 | EKG ---
Test Date: 2024-03-15 Test Time: 19:14:41 Fleet Coordinator: MM MEASUREMENT RESULTS: Intervals: Rate: 98 VA: 130 QRSD: 86 QT: 360 QTc: 459 [place]: P: 45 VA: 130 QRS: 49 T: 35 INTERPRETIVE STATEMENTS: Normal sinus rhythm Cannot rule out Inferior infarct, age undetermined Abnormal ECG Compared to ECG 11/04/2022 02:28:46 Myocardial infarct finding now present Ventricular premature complex(es) no longer present ST (T wave) deviation no longer present Electronically Signed On 03-21-24 12:23:34 RF ENGINEER by Tico Meneses
--- NOTE | 2024-03-21 14:24 | PN ---
Date of Progress Note: 03/20/2024 Chief Complaint: Acute kidney injury, fluid overload, cardiorenal syndrome. Subjective: The patient has nonoliguric urine output. He has underlying chronic kidney disease, sta ge 3. Review of Systems: Denies chest pain, palpitation. Physical Examination: Lungs: Few rhonchi. Crackles at bases. Heart: S1, S2. Abdomen: Soft, benign. Extremities: 2+ edema. Impression And Plan: 1. Acute kidney injury versus progressive diabetic and hypertensive nephrosclerosis. The patient has congestive heart failure, fluid overload, cardiorenal syndrome, and creatinine level stabilizing. M onitor renal panel and plan is to review ultrasound and urine protein creatinine ratio. 2. Fluid overload. Continue diuretic. Adjust diuretic dose according to the urine output. Ejection fraction was 55% when transthoracic echo was done. 3. Diabetes mellitus. Continue insulin. Monitor blood pressure. Adjust medication for blood pressu re according to blood pressure log. 4. Hypertension, on blood pressure medication. Continue diuretic. EB/MODL Voice ID: [id number] Report ID: [id number]
--- NOTE | 2024-03-21 14:54 | P.DS ---
Admission Date: 03/15/24 Discharge Date: 03/22/24 Disposition: ROUTINE DISCHARGE Discharge Condition: FAIR Reason for Admission: SOB Brief History of Present Illness: 53 yrs old Male with past medical history of diabetes, hypertension, CHF, medication noncompliance came to ER with shortness of breath. Patient states that he has not been taking any medications recently. Started having shortness of breath for the last 1 month. Denies any fever or chills. No chest pain. Patient complains of shortness of breath even with minimal exertion.Patient reports that he is not able to take 2 steps without getting short of breath and is able to speak in 3-4 word sentences after ambulating to bed. Patient was assessed in the ER and is admitted for further management of CHF exacerbation and hypertensive emergency Patient was started on nitroglycerin drip and was admitted to the ICU Hospital Course: Problem List: Acute hypoxic respiratory failure secondary to acute on chronic diastolic CHF exacerbation Hypertensive emergency, resolved Medication noncompliance BEVERLY of CKD2 Hypokalemia Left hand erythema NIDDM2 Hyperlipidemia Hx of CVA (Left MCA territory 10/2022) Hx of Vitamin B12 deficiency Patient admitted to the medical floor and the following medical problems addressed: Acute hypoxic respiratory failure secondary to acute on chronic diastolic CHF exacerbation Hypertensive emergency, resolved Medication noncompliance History of noncompliant on home medications. Reports not taking any home meds for at least the last 6 months mostly secondary to cost. CXR (03/15): Bilateral pleural effusions L > R. Echo with normal EF and grade 2 diastolic dysfunction, elevated filling pressure. Status post nitro drip. continued losartan, coreg, hydralazine and isosorbide. Patient seen and evaluated by cardiology-Dr. Meneses. Patient treated with metolazone 2.5 mg daily and spironolactone Also treated with IV Lasix Patient clinically improved with treatment Nephrology assisted with management. Hydralazine titrated for BP control. Patient requested to go home. He is discharged with bumex BEVERLY of CKD2 Hypokalemia Stable monitor and replete electrolytes. Abdominal u/s negative for any acute findings. Patient treated with IV lasix. Nephrology evaluated patient and assisted with management. Had Mcintyre which was dc'd on 03/18; he is voiding voiding without issues post Mcintyre removal Hyperlipidemia Hx of CVA (Left MCA territory 10/2022) Hx of Vitamin B12 deficiency Continued home medications. Vital Signs/Physical Exam: Temp Pulse Resp BP Pulse Ox 98.3 F 67 18 156/80 H 94 03/21/24 12:00 03/21/24 12:00 03/21/24 12:00 03/21/24 12:00 03/21/24 12:00 General: Alert, In no apparent distress, Oriented x3 HEENT: Mucous membr. moist/pink Neck: JVD not distended Respiratory: Clear to auscultation bilaterally, Normal air movement Cardiovascular: Regular rate/rhythm, Normal S1 S2, Edema (Trace bilateral lower extremity edema) Gastrointestinal: Normal bowel sounds, Soft and benign, Non-distended, No tenderness Musculoskeletal: No tenderness Integumentary: No rashes, No cyanosis Neurological: Normal strength at 5/5 x4 extr, Cranial nerves 3-12 intact Laboratory Data at Discharge: WBC 8.70 thou/uL (4.3-10.9) 03/20/24 06:54 Hgb 13.0 g/dL (13.6-17.9) L 03/20/24 06:54 Hct 38.3 % (39.6-49.0) L 03/20/24 06:54 Plt Count 294 thou/uL (152-406) 03/20/24 06:54 Sodium 138 mEq/L (136-145) 03/21/24 06:33 Potassium 3.4 mEq/L (3.5-5.1) L 03/21/24 06:33 BUN 34 mg/dL (7-18) H 03/21/24 06:33 Creatinine 1.89 mg/dL (0.70-1.30) H 03/21/24 06:33 Glucose 145 mg/dL (74-106) H 03/21/24 06:33 Uric Acid 7.5 mg/dL (3.5-7.2) H 03/19/24 06:27 Phosphorus 3.8 mg/dL (2.5-4.9) 03/17/24 05:11 Magnesium 2.3 mg/dL (1.6-2.4) 03/21/24 06:33 Total Bilirubin 0.5 mg/dL (0.2-1.0) 03/20/24 06:54 AST 11 U/L (15-37) L 03/20/24 06:54 ALT < 14 U/L (16-61) L 03/20/24 06:54 Alkaline Phosphatase 133 U/L (45-117) H 03/20/24 06:54 Home Medications: Bumetanide [Bumex] 2 mg PO BID #60 tab 03/21/24 Isosorbide Dinitrate [Isordil] 30 mg PO QID #120 tab 03/21/24 Losartan Potassium [Cozaar*] 100 mg PO DAILY #30 tab 03/21/24 Spironolactone [Aldactone*] 25 mg PO BID #60 tab 03/21/24 carvediloL [Coreg*] 25 mg PO BID 6AM 6PM #60 tab 03/21/24 Hydralazine HCl 50 mg PO TID #90 tab 03/22/24 New Medications: Spironolactone [Aldactone*] 25 mg PO BID #60 tab Bumetanide [Bumex] 2 mg PO BID #60 tab carvediloL [Coreg*] 25 mg PO BID 6AM 6PM #60 tab Losartan Potassium [Cozaar*] 100 mg PO DAILY #30 tab Hydralazine HCl 50 mg PO TID #90 tab Isosorbide Dinitrate [Isordil] 30 mg PO QID #120 tab Diet: AHA Activity: Ad peggy Followup: Fahad Qureshi MD [ACTIVE - CAN ADMIT] - 1 Week Tico Meneses MD [ACTIVE - CAN ADMIT] - 1 Week NONE,NONE [Primary Care Provider] - 1 Week Time spent managing pt's care (in minutes): 37
--- NOTE | 2024-03-21 15:25 | PN ---
Date of Progress Note: 03/21/2024 Subjective: The patient was admitted to the hospital with acute kidney injury secondary to hypertens ion, not controlled, with overvolume. Patient was diuresed very well. Objective: Vital Signs: When I saw the patient, blood pressure 177/88, pulse of 65. Chest: Clear to auscultation. Heart: S1, S2. Regular. Abdomen: Soft, nontender. Extremities: +1 edema. Neurologic: Alert. No focality. Laboratory Data: Hemoglobin 13, sodium 138, potassium 3.4, bicarb 34, BUN 34, creatinine 1.8. Calci um 8.6, magnesium 2.3, PC ratio 3.1. Current Medications: Carvedilol 12.5, hydralazine 25 t.i.d., isosorbide, losartan, spironolactone, L asix, metolazone. Assessment And Plan: 1. 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 I am going to go ahead and increase losartan to 100 mg, and we will follow up the patient. 2. Hypertension, not controlled. Increase losartan as above. Increase carvedilol to 25 mg and we wi ll follow up. 3. Hypokalemia. Continue spironolactone. 4. Congestive heart failure with exacerbation. We will continue diuresis. The patient cleared from the Renal standpoint for discharge planning. ADAMA Voice ID: [id number] Report ID: [id number]
[2024-03-21] MEDS: HYDRALAZINE HCL 25 MG TABLET PO ONE (16:25)
[2024-03-21] MEDS: carvediloL 25 MG TAB PO SCH (17:12)
--- NOTE | 2024-03-21 19:38 | P.PN ---
Subjective Date of Service: 03/21/24 Chief Complaint: SOB Patient reports significant improvement in his shortness of breath. His lower extremity swelling also significantly improved. Patient request to go home. Physical Examination - Vital Signs Temperature: 98.3 F Blood Pressure: 167/85 Pulse: 75 Respirations: 18 Pulse Ox (%): 94 - Studies Medications List Reviewed: Yes Assessment And Plan - Plan Physical Exam: GEN: Alert, NAD, oriented x3 CV: Regular rate and rhythm, 1-2+ bilateral lower extremity edema Pulm: diminished bilaterally, clear to auscultation. Integumentary: Left hand slight erythema, nontender. Neuro: Normal speech, normal affect, no focal motor deficit. Problem List: Acute hypoxic respiratory failure secondary to acute on chronic diastolic CHF exacerbation Hypertensive emergency, resolved Medication noncompliance BEVERLY of CKD2 Hypokalemia Left hand erythema NIDDM2 Hyperlipidemia Hx of CVA (Left MCA territory 10/2022) Hx of Vitamin B12 deficiency Acute hypoxic respiratory failure secondary to acute on chronic diastolic CHF exacerbation Hypertensive emergency, resolved Medication noncompliance History of noncompliant on home medications. Reports not taking any home meds for at least the last 6 months mostly secondary to cost. CXR (03/15): Bilateral pleural effusions L > R. Echo with normal EF and grade 2 diastolic dysfunction, elevated filling pressure. Status post nitro drip. continue losartan, coreg, hydralazine and isosorbide. Cardiology input appreciated. Continue metolazone 2.5 mg daily as added per cardio (2/3-) Continue spironolactone; as added 2/2 per nephro Titrate hydralazine for BP control. Cardiology is titrating IV Lasix. BEVERLY of CKD2 Hypokalemia Stable continue to monitor renal function. monitor and replete electrolytes. Abdominal u/s negative for any acute findings. IV lasix increased to 80 mg q8h (03/17) Mcintyre dc'd 03/18; voiding without issues post Mcintyre removal Nephrology consulted. NIDDM2 accu-cheks, SSI Hyperlipidemia Hx of CVA (Left MCA territory 10/2022) Hx of Vitamin B12 deficiency confirm home meds, restart as appropriate VTE: Lovenox Code: Full Dispo: Home
[2024-03-21] MEDS: HYDRALAZINE HCL 25 MG TABLET PO SCH (21:07)
[2024-03-21 23:09] VITALS: O2SAT 95
[2024-03-22] MEDS: FUROSEMIDE 40 MG/4 ML VIAL IV SCH (00:39)
[2024-03-22 06:06] VITALS: BP 153/77
[2024-03-22 06:07] VITALS: BMI 37.8
[2024-03-22 07:00] LABS: Anion Gap 5.7 mEq/L (5.0-15.0); Magnesium 2.3 mg/dL (1.6-2.4); Potassium 3.7 mEq/L (3.5-5.1)
[2024-03-22 08:14] VITALS: TEMP 97.6
[2024-03-22] MEDS: LOSARTAN POTASSIUM 50 MG TABLET PO SCH (09:00)
--- NOTE | 2024-03-22 09:27 | P.PN ---
Subjective Date of Service: 03/22/24 Chief Complaint: SOB Subjective: No new changes, No C/O voiced, Tolerating diet, Ambulating, Improving Review of Systems 10-point ROS is otherwise unremarkable Physical Examination - Vital Signs Temperature: 97.6 F Blood Pressure: 153/77 Pulse: 62 Respirations: 18 Pulse Ox (%): 93 - Physical Exam General: Alert, In no apparent distress HEENT: Atraumatic, PERRLA, EOMI Neck: Supple, JVD not distended Respiratory: Clear to auscultation bilaterally, Normal air movement Cardiovascular: Regular rate/rhythm, Normal S1 S2 Gastrointestinal: Normal bowel sounds, No tenderness Musculoskeletal: No tenderness Integumentary: No rashes Neurological: Normal speech, Normal tone, Normal affect Lymphatics: No axilla or inguinal lymphadenopathy - Studies Medications List Reviewed: Yes Assessment And Plan - Current Problems (Diagnosis) (1) Acute on chronic diastolic heart failure Current Visit: Yes Status: Acute Plan: Echo shows normal EF with grade 2 DD, elevated filling pressure switch lasix to Bumex 2 mg po BID on discharge please monitor input and output and electrolytes. continue coreg 25 mg po BID Continue Losartan 100 mg daily hydralazine 25 mg TID. Isordil 30 mg q6 hours D/C metolazone on discharge.
--- NOTE | 2024-03-22 15:25 | PN ---
Date of Progress Note: 03/22/2024 Subjective: The patient was admitted with CHF with exacerbation. The patient was started on diuresi s. The patient recovered. Kidney function stabilized. Blood pressure yesterday was elevated. Objective: Vital Signs: When I saw the patient, blood pressure 153/77, pulse of 62, afebrile. Chest: Clear to auscultation. Heart: S1, S2. Systolic murmur. Abdomen: Soft, nontender. Extremities: Plus edema. Neurologic: Alert. No focality. Laboratory Data: Hemoglobin 13, sodium 138, potassium 3.7, bicarb 38, BUN 35, creatinine 2, calcium 8.9, phosphorus 5, magnesium 2.3. Current Medications: The patient on include Lovenox, isosorbide 30, hydralazine 50 t.i.d., losartan 100, spironolactone, Lasix, and metolazone. Assessment And Plan: 1. Acute kidney injury secondary to cardiorenal, continue to recover. I am going to continue the pat ient on diuresis. We will switch the Lasix to Bumex. Continue spironolactone. 2. Hypertension, not controlled. Currently, today, better. Continue hydralazine, losartan, and spir onolactone with diuresis. We just increased carvedilol yesterday. We will follow up. 3. Congestive heart failure with exacerbation, as above. 4. Hypokalemia. We increased the spironolactone. 5. Anasarca secondary to renal failure. Hypothyroidism has been ruled out. It is secondary to cardi orenal with nephrotic range of proteinuria. We will continue diuresis as above. 6. 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 Continue diuresing the patient. C ontinue spironolactone and losartan. The patient cleared from the Renal standpoint for discharge planning. JANIS/STEVE Voice ID: [id number] Report ID: [id number]
[2024-03-22] MEDS ORDERED: BUMETANIDE 1 MG TABLET PO SCH (21:00)
== END 2024-03-22 11:36 | disposition home or self-care (01) | DRG 291 ==
LOC: ER 18:48 → ERHOLD 22:10 → 3RD-ICU 23:56 → 4TH 03-18 16:52
PROVIDERS: ADMIT Family Medicine; ATTEND Internal Medicine
PROC: 0T9B70Z Drainage of Bladder with Drainage Device, Via Natural or Artificial Opening (ICD-10-PCS; principal; 2024-03-18)
DX: I13.0 Hypertensive heart and chronic kidney disease with heart failure and stage 1 through stage 4 chronic kidney disease, or unspecified chronic kidney disease (principal); I50.33 Acute on chronic diastolic (congestive) heart failure; J96.01 Acute respiratory failure with hypoxia; I16.1 Hypertensive emergency; Z68.41 Body mass index [BMI] 40.0-44.9, adult; N17.9 Acute kidney failure, unspecified; N18.32 Chronic kidney disease, stage 3b; E11.22 Type 2 diabetes mellitus with diabetic chronic kidney disease; E87.6 Hypokalemia; E66.9 Obesity, unspecified; E78.5 Hyperlipidemia, unspecified; L53.8 Other specified erythematous conditions; Z91.148 Patient's other noncompliance with medication regimen for other reason; Z86.73 Personal history of transient ischemic attack (TIA), and cerebral infarction without residual deficits
CPT/HCPCS: 36415; 51702; 71045; 80048; 80053; 81001; 82550; 82570; 82947; 83735; 83880; 84100; 84132; 84156; 84443; 84484; 84550; 85025; 85027; 86334; 87086; 87088; 93005; 93306; 93975; 96365; 96366; 96375; 97116; 97161; 99285; J1650; J1940

== ENCOUNTER 2024-09-16 17:46 | Inpatient (IN) | payer OTHER ==
[2024-09-16] MEDS ORDERED: NITROGLYCERIN 1 GM PKT TD ONE (17:56)
[2024-09-16] MEDS ORDERED: ONDANSETRON 4 MG/2 ML VIAL ONE (17:56)
[2024-09-16] MEDS ORDERED: MORPHINE 4 MG/ML SYR ONE (17:56)
[2024-09-16] MEDS ORDERED: FUROSEMIDE 100 MG/10 ML VIAL IV ONE (17:56)
--- NOTE | 2024-09-16 18:18 | RAD REPORT ---
EXAMINATION: ONE VIEW CHEST XR CLINICAL INDICATION: COUGH TECHNIQUE: Frontal chest projection is submitted. Examination is limited by patient positioning and t echnique. COMPARISON: 07/14/2024 FINDINGS: Moderate bilateral pulmonary opacities suggest pulmonary edema. Moderate bilateral pleural effusions. The heart is enlarged. No displaced fractures identified. IMPRESSION: Moderate CHF/volume overload pattern suspected.
[2024-09-16 18:45] LABS: Blood O2 Saturation 93.7 % (92.0-98.5)
[2024-09-16 18:46] LABS: Arterial Blood Carboxyhemoglob 1.9 % (0.0-1.5); Blood Gas Inspired Oxygen 35.0 %; Blood Gas Oxyhemoglobin 93.5 % (94.0-97.0)
[2024-09-16 19:14] LABS: Absolute Lymphocytes (CBC) 1.0 K/uL (0.7-4.9); Hematocrit 39.7 % (39.6-49.0); Hemoglobin 13.0 g/dL (13.6-17.9); MCH 29.5 pg (27.0-35.0); MCHC 32.7 g/dL (32.0-36.0); MCV 90.0 fL (80-100); MPV 8.8 fL (7.6-11.3); Nucleated RBC Absolute Count 0.0 (0-0); Nucleated Red Blood Cells % 0.1 % (0-0); RBC Red Blood Cell Count 4.41 M/uL (4.33-5.43); White Blood Count 10.90 thou/uL (4.3-10.9)
[2024-09-16 19:19] LABS: PT Prothrombin Time 14.1 SECONDS (10-13.0); Protime INR 1.26
--- NOTE | 2024-09-16 19:26 | ER ---
Nurse's Notes [facility] Name: Alan Pollack Jr Age: 53 yrs Sex: Male : 1970 Arrival Date: 09/16/2024 Time: 17:42 Bed 14 Private MD: Diagnosis: Morbid (severe) obesity with alveolar hypoventilation;Chronic combined systolic (congestive) and diastolic (congestive) heart failure;Edema, unspecified;Hypoxemia;Chronic kidney disease, unspecified;Essential (primary) hypertension;Acute kidney failure, unspecified;Pleural effusion, not elsewhere classified-bilateral, moderate Presentation: 09/16 17:48 Chief complaint: EMS states: Pt from home, EMS called for difficulty breathing, hx of ph CHF and HTN, has been noncompliant w/ medications for multiple weeks, significant swelling to entire body, hypertensive at 200s/110s, Spo2 75% RA, was not tolerating bi-pap so EMS gave 30 mg Ketamine IVP, pt also received SL nitro x 1, 2 mg Nitro IVP, pt diaphoretic and altered upon arrival to ED. Coronavirus screen: Vaccine status: Patient reports being unvaccinated. Ebola Screen: No symptoms or risks identified at this time. Initial Sepsis Screen: Does the patient meet any 2 criteria? No. Patient's initial sepsis screen is negative. Does the patient have a suspected source of infection? No. Patient's initial sepsis screen is negative. Risk Assessment: Do you want to hurt yourself or someone else? Patient reports no desire to harm self or others. Onset of symptoms was September 16, 2024. 17:48 Method Of Arrival: EMS: [facility] ph 18:13 Acuity: ROSIE 1 ar8 Triage Assessment: 17:50 General: Appears distressed, uncomfortable, obese, Behavior is cooperative. Pain: ph Denies pain. Neuro: Level of Consciousness is awake, alert, obeys commands, confused, Oriented to person. Cardiovascular: Capillary refill < 3 seconds in bilateral fingers Patient's skin is warm and dry. Edema is 4+ to right shoulder, right upper arm, right elbow, right forearm, right wrist, right hand, right fingers, waist, pubic area, left upper thigh, left lower thigh, left knee, left midcalf, left ankle, left foot, left shoulder, left upper arm, left elbow, left forearm, left wrist, left fingers, right upper thigh, right lower thigh, right knee, right midcalf, right ankle and right foot pitting to right shoulder, right upper arm, right elbow, right forearm, right wrist, right hand, right fingers, waist, pubic area, left upper thigh, left lower thigh, left knee, left midcalf, left ankle, left foot, left shoulder, left upper arm, left elbow, left forearm, left wrist, left hand, right upper thigh, right lower thigh, right knee, right midcalf, right ankle and right foot significant swelling also noted to penis and testicles, 4+ pitting. Historical: - Allergies: 18:38 No Known Allergies; ph - PMHx: 18:38 Congestive heart failure; Diabetes - NIDDM; Hypertension; ph - Immunization history:: Adult Immunizations unknown. - Infectious Disease History:: unable to obtain. - Family history:: not pertinent. - Social history:: Smoking status: unknown. Screenin:[address] [facility] ED Fall Risk Assessment (Adult) History of falling in the last 3 months, ph including since admission No falls in past 3 months (0 pts) Confusion or Disorientation Yes (5 pts) Intoxicated or Sedated No (0 pts) Impaired Gait Yes (1 pt) Mobility Assist Device Used Yes (1 pt) Altered Elimination Yes (1 pt) Score/Fall Risk Level 3 or more points = High Risk Oriented to surroundings, Maintained a safe environment, Hourly rounding (assess needs \T\ fall precautionary measures) done, Used ambulatory aids as needed (educated on \T\ assisted with). Abuse screen: Denies threats or abuse. Denies injuries from another. Nutritional screening: No deficits noted. Tuberculosis screening: No symptoms or risk factors identified. Assessment: 18:00 General: SEE TRIAGE ASSESSMENT. ph 20:00 General: Appears uncomfortable, obese, unkempt, Behavior is cooperative. Neuro: Level ph of Consciousness is awake, alert, obeys commands, Oriented to person, place, situation. Respiratory: Reports shortness of breath at rest unable to lay flat Airway is patent Respiratory effort is even, Respiratory pattern is tachypnea Patient placed on BiPAP:. 20:00 Cardiovascular:. GI: Abdomen is obese. : Mcintyre in place to gravity drainage. Derm: ph Skin skin break down to inner thighs/groin. 20:30 Reassessment: attempted to bring pt to CT scan, unable to complete CT scan because pt ph unable to lay flat without becoming short of breath. pt refused CT scan, provider notified. 22:19 Reassessment: Patient appears in no apparent distress at this time. Patient and/or km10 family updated on plan of care and expected duration. Pain level reassessed. Patient is alert, oriented x 3, equal unlabored respirations, skin warm/dry/pink. Patient states symptoms have improved. Vital Signs: 17:48 BP 245 / 121; Pulse 102; Resp 26; Temp 98.2; Pulse Ox 97% on BiPAP; ph 18:00 BP 219 / 98; Pulse 99; Resp 22; Pulse Ox 97% on BiPAP; ph 18:15 BP 201 / 110; Pulse 95; Resp 26; Pulse Ox 96% on BiPAP; ph 18:30 BP 189 / 94; Pulse 93; Resp 22; Pulse Ox 96% on BiPAP; ph 18:45 BP 176 / 79; Pulse 88; Resp 22; Pulse Ox 97% on BiPAP; ph 19:00 BP 156 / 76; Pulse 88; Resp 18; Pulse Ox 96% on BiPAP; ph 20:48 Weight 155.13 kg; ph 20:49 BP 192 / 90; Pulse 91; Resp 22; Pulse Ox 97% on BiPAP; ph 21:26 BP 184 / 83; Pulse 82; Resp 20; Pulse Ox 97% on BiPAP; km10 22:18 BP 165 / 81; Pulse 74; Resp 20; Pulse Ox 97% on 4 lpm NC; km10 Shreya Coma Score: 20:48 Eye Response: spontaneous(4). Motor Response: obeys commands(6). Verbal Response: ph oriented(5). Total: 15. ED Course: 17:42 Patient arrived in ED. eb 17:59 Roddy Drake MD is Attending Physician. sujit 18:13 Triage completed. ar8 18:14 XRAY Chest (1 view) In Process Unspecified. EDMS 18:27 Michelle Long, GOPI is Primary Nurse. ph 18:30 Initial lab(s) drawn, by me, sent to lab. EKG done, by ED staff, reviewed by Roddy Drake MD. Maintain EMS IV. Dressing intact. Good blood return noted. Site clean \T\ dry. Gauge \T\ site: 20 RAC. Flushed with 10 mL NS. 18:35 Inserted saline lock: 22 gauge in left hand, using aseptic technique. ph 18:38 Mcintyre cath inserted, using sterile technique, 16 Fr., by ED staff, balloon inflated, to ph gravity drainage, returned della urine. Patient tolerated poorly. 19:14 Patient has correct armband on for positive identification. Placed in gown. Bed in low ph position. Call light in reach. Side rails up X2. quality assurance monitor body on. Pulse ox on. NIBP on. Door closed. Noise minimized. 19:18 Arm band placed on Patient placed in an exam room, on a stretcher, on oxygen, on ph conveyor monitor, on pulse oximetry. 19:19 No provider procedures requiring assistance completed. ph 19:25 Fadumo Patricia MD is Hospitalizing Provider. sujit 19:39 COVID-19 Ag + Flu A+B Ag Sent. ts3 19:40 Urine collected: clean catch specimen, sen to lab. ts3 20:21 US Extremity Venous W Compression Octavio In Process Unspecified. EDMS 20:51 BIPAP Sent. ph 22:00 Oxygen administration via nasal cannula \T\ 3L/min Response to oxygen therapy: pt removed km10 from BiPAP and placed on nasal canula by RT. Responding well. 22:23 Report given to Demetrius NGUYỄN, ICU -6. km10 22:25 Patient admitted, IV remains in place. km10 22:25 Provided Education on: plan of care. km10 Administered Medications: 18:12 Drug: Nitroglycerin Transdermal Ointment 2 % 1 inches Transdermal once Route: ar8 Transdermal; Site: anterior chest wall; 19:19 Follow up: Response: No adverse reaction; Blood pressure is lowered ph 18:27 Drug: Furosemide IVP 60 mg IVP once; give over 2 minutes Route: IVP; Site: left hand; ph 19:19 Follow up: Response: No adverse reaction ph 18:27 Drug: morphine IVP or IV 4 mg IVP once over 4 mins Route: IVP; Infused Over: 4 mins; ph Site: left hand; 19:19 Follow up: Response: No adverse reaction ph 18:27 Drug: Ondansetron IVP 4 mg IVP once; over 2 minutes Route: IVP; Site: left hand; ph 19:20 Follow up: Response: No adverse reaction ph 21:16 Drug: Cefepime IVPB 1 grams IVPB at 200 ml/hr once over 30 mins; (mix in NS 100 mL) km10 Route: IVPB; Rate: 200 ml/hr; Infused Over: 30 mins; Site: right antecubital; 21:16 Drug: Albumin IVPB 25 grams 100 ml IVPB once; (Note: Albumin 25% concentration) Volume: km10 100 ml; Route: IVPB; Site: left wrist; 22:18 Follow up: Response: No adverse reaction; IV Status: Completed infusion 10 Medication: 19:18 VIS not applicable for this client. ph Outcome: 19:26 Decision to Hospitalize by Provider. sujit 22:24 Admitted to ICU accompanied by nurse, via stretcher, room 6, Report called to Demetrius de la cruz RN 22:24 Condition: stable 22:24 Instructed on the need for admit, Demonstrated understanding of instructions, 22:28 Patient left the ED. jono Signatures: Dispatcher [employer] EDRoddy James MD MD cha Hall, Patricia, RN RN Tayler Ramires Kirsten, RN RN Kaylee Cuello3 Alli Jaeger, RN RN ar8
--- NOTE | 2024-09-16 19:26 | EDPHYS ---
Physician Documentation [facility] Name: Alan Pollack Jr Age: 53 yrs Sex: Male : 1970 Arrival Date: 09/16/2024 Time: 17:42 Bed 14 Private MD: ED Physician Roddy Drake HPI: 09/16 19:15 This 53 yrs old Male presents to ER via EMS with complaints of Breathing sujit Difficulty. 19:15 The patient has shortness of breath at rest, with light activity. Onset: The sujit symptoms/episode began/occurred 5 day(s) ago. Duration: The symptoms are continuous, and are steadily getting worse. The patient's shortness of breath is aggravated by coughing, exertion, light activity, is alleviated by rest, sitting up, application of supplemental oxygen. The patient presents with abdominal distention in the upper abdomen, in the lower abdomen. morbid obesity. Associated signs and symptoms: Pertinent positives: non-productive cough. Severity of symptoms: At their worst the symptoms were moderate in the emergency department the symptoms are unchanged. The symptoms do not radiate. Historical: - Allergies: 18:38 No Known Allergies; ph - PMHx: 18:38 Congestive heart failure; Diabetes - NIDDM; Hypertension; ph - Immunization history:: Adult Immunizations unknown. - Infectious Disease History:: unable to obtain. - Family history:: not pertinent. - Social history:: Smoking status: unknown. ROS: 19:15 Constitutional: Negative for fever, chills, and weight loss, Eyes: Negative for injury, sujit pain, redness, and discharge, ENT: Negative for injury, pain, and discharge, Neck: Negative for injury, pain, and swelling, Cardiovascular: Negative for chest pain, palpitations, and edema, Back: Negative for injury and pain, : Negative for injury, bleeding, discharge, and swelling, Skin: Negative for injury, rash, and discoloration, Neuro: Negative for headache, weakness, numbness, tingling, and seizure, Psych: Negative for depression, anxiety, suicide ideation, homicidal ideation, and hallucinations, Allergy/Immunology: Negative for hives, rash, and allergies, Endocrine: Negative for neck swelling, polydipsia, polyuria, polyphagia, and marked weight changes, Hematologic/Lymphatic: Negative for swollen nodes, abnormal bleeding, and unusual bruising, 19:15 Respiratory: Positive for cough, shortness of breath, at rest. 19:15 Abdomen/GI: Positive for abdominal pain, nausea, abdominal distension, 19:15 MS/extremity: Positive for decreased range of motion, pain, swelling, tenderness, of the right leg and left leg, 19:15 Skin: Positive for swelling, Exam: 19:21 Constitutional: This is a well developed, well nourished patient who is awake, alert, sujit and in no acute distress. Head/Face: Normocephalic, atraumatic. Eyes: Pupils equal round and reactive to light, extra-ocular motions intact. Lids and lashes normal. Conjunctiva and sclera are non-icteric and not injected. Cornea within normal limits. Periorbital areas with no swelling, redness, or edema. ENT: Nares patent. No nasal discharge, no septal abnormalities noted. Tympanic membranes are normal and external auditory canals are clear. Oropharynx with no redness, swelling, or masses, exudates, or evidence of obstruction, uvula midline. Mucous membranes moist. Neck: Trachea midline, no thyromegaly or masses palpated, and no cervical lymphadenopathy. Supple, full range of motion without nuchal rigidity, or vertebral point tenderness. No Meningismus. Chest/axilla: Normal chest wall appearance and motion. Nontender with no deformity. No lesions are appreciated. Cardiovascular: Regular rate and rhythm with a normal S1 and S2. No gallops, murmurs, or rubs. Normal PMI, no JVD. No pulse deficits. Back: No spinal tenderness. No costovertebral tenderness. Full range of motion. Neuro: Awake and alert, GCS 15, oriented to person, place, time, and situation. Cranial nerves II-XII grossly intact. Motor strength 5/5 in all extremities. Sensory grossly intact. Cerebellar exam normal. Normal gait. Psych: Awake, alert, with orientation to person, place and time. Behavior, mood, and affect are within normal limits. 19:21 ECG was reviewed by the Attending Physician. 19:21 Respiratory: mild respiratory distress is noted, Respirations: labored breathing, that is moderate, Breath sounds: decreased breath sounds, that are moderate, are scattered, are located in both bases, rhonchi, that are mild, are scattered, stridor, is not appreciated, wheezing: expiratory Respiratory rate: 20 Vital Signs: 17:48 BP 245 / 121; Pulse 102; Resp 26; Temp 98.2; Pulse Ox 97% on BiPAP; ph 18:00 BP 219 / 98; Pulse 99; Resp 22; Pulse Ox 97% on BiPAP; ph 18:15 BP 201 / 110; Pulse 95; Resp 26; Pulse Ox 96% on BiPAP; ph 18:30 BP 189 / 94; Pulse 93; Resp 22; Pulse Ox 96% on BiPAP; ph 18:45 BP 176 / 79; Pulse 88; Resp 22; Pulse Ox 97% on BiPAP; ph 19:00 BP 156 / 76; Pulse 88; Resp 18; Pulse Ox 96% on BiPAP; ph 20:48 Weight 155.13 kg; ph 20:49 BP 192 / 90; Pulse 91; Resp 22; Pulse Ox 97% on BiPAP; ph 21:26 BP 184 / 83; Pulse 82; Resp 20; Pulse Ox 97% on BiPAP; km10 22:18 BP 165 / 81; Pulse 74; Resp 20; Pulse Ox 97% on 4 lpm NC; km10 Shreya Coma Score: 20:48 Eye Response: spontaneous(4). Motor Response: obeys commands(6). Verbal Response: ph oriented(5). Total: 15. Procedures: 19:24 Mcintyre cath inserted by myself - 16 Fr. Urine output = 250 ml's. Patient tolerated well. sujit MDM: 17:59 Medical Screening Exam initiated sujit 19:19 Differential diagnosis: Anemia Anxiety Reaction asthma, Bronchitis CHF exacerbation, sujit Chronic Obstructive Pulmonary Disease Myocardial Infarction pneumonia, pulmonary edema, Pulmonary Embolism reactive airway disease, Sepsis Unstable Angina appendicitis, bowel obstruction, coronary artery disease, cholecystitis, Cholelithiasis, diverticulitis, gastritis, gastroesophageal reflux disease, GI Bleed, Hepatitis, Herpes Zoster, Irritable bowel syndrome, sympomatic leaking abdominal aortic aneurysm, myocardia ischemia or infarction, non-specific abd pain, pancreatitis, Peptic Ulcer Disease, Perf. Gastric Ulcer, Prostatitis, Ureterolithiasis, urinary tract infection. Antibiotic administration: cefepime. Differential Diagnosis altered mental status, sepsis, flu. Immunization status: Influenza vaccine: within last 5 years. Data reviewed: vital signs, nurses notes, lab test result(s), EKG, radiologic studies. Consideration of Admission/Observation Patient was admitted/placed on observation. Escalation of care including admission/observation considered. I considered the following discharge prescriptions or medication management in the emergency department Medications were administered in the Emergency Department. See MAR. Independent interpretation of the following test(s) in the Emergency Department EKG: See my EKG interpretation above. Test considered but Not performed: Ultrasound no abd usg. Historians other than the Patient: EMS: ems well informed. Care significantly affected by the following chronic conditions: Diabetes, Hypertension, Congestive Heart Failure, Obesity, Chronic Kidney Disease. 09/16 18:01 Order name: Basic Metabolic Panel; Complete [facility]: [facility] 18:01 Order name: CBC with Diff; Complete Time: 19:24 [facility] 09/[facility] 18:01 Order name: LFT's; Complete Time: 19:44 [facility] 09/16 18:01 Order name: Magnesium; Complete Time: 19:44 [facility] 09/16 18:01 Order name: NT PRO-BNP; Complete Time: 19:44 [facility] 09/16 18:01 Order name: PT-INR; Complete Time: 19:24 [facility] 09/16 18:01 Order name: Troponin HS; Complete Time: 19:44 [facility] 09/16 18:01 Order name: Lipase; Complete Time: 19:44 [facility] 09/16 18:01 Order name: COVID-19 Ag + Flu A+B Ag; Complete Time: 20:34 [facility] 09/16 18:01 Order name: Blood Culture Adult (2) [facility] 09/16 18:01 Order name: Lactate w/ 2H reflex if indic.; Complete Time: 19:44 [facility] 09/16 18:01 Order name: UA Rfx Rowdy Cult if indicated; Complete Time: 20:34 [facility] 09/16 18:01 Order name: ABG; Complete Time: 19:09 [facility] 09/16 21:44 Order name: C-Reactive Protein EDMS 09/16 21:44 Order name: C-Reactive Protein EDMS 09/16 21:44 Order name: C-Reactive Protein EDMS 09/16 21:44 Order name: C-Reactive Protein EDMS 09/16 21:44 Order name: CBC with Automated Diff EDMS 09/16 21:44 Order name: CBC with Automated Diff EDMS 09/16 21:44 Order name: CBC with Automated Diff EDMS 09/16 21:44 Order name: CBC with Automated Diff EDMS 09/16 21:44 Order name: Comprehensive Metabolic Panel EDMS 09/16 21:44 Order name: Comprehensive Metabolic Panel EDMS 09/16 21:44 Order name: Comprehensive Metabolic Panel EDMS 09/16 21:44 Order name: Comprehensive Metabolic Panel EDMS 09/16 21:44 Order name: Magnesium EDMS 09/16 21:44 Order name: Magnesium EDMS 09/16 21:44 Order name: Magnesium EDMS 09/16 21:44 Order name: Magnesium EDMS 09/16 21:44 Order name: NT PRO-BNP EDMS 09/16 21:44 Order name: NT PRO-BNP EDMS 09/16 21:44 Order name: NT PRO-BNP EDMS 09/16 21:44 Order name: NT PRO-BNP EDMS 09/16 21:44 Order name: Phosphorus EDMS 09/16 21:44 Order name: Phosphorus EDMS 09/16 21:44 Order name: Phosphorus EDMS 09/16 21:44 Order name: Phosphorus EDMS 09/16 21:44 Order name: Troponin High Sensitivity EDMS 09/16 22:10 Order name: ABG Arterial Blood Gas EDMS 09/16 18:01 Order name: XRAY Chest (1 view); Complete Time: 19:09 [facility] 09/16 18:01 Order name: BIPAP [facility] 09/16 18:36 Order name: CT Chest Abdomen Pelvis W/O Contrast [facility] 09/16 19:19 Order name: US Extremity Venous W Compression Octavio; Complete Time: 20:34 sujit 09/16 22:16 Order name: Echo with Doppler EDMS 09/16 22:16 Order name: Echo with Doppler EDMS 09/16 18:01 Order name: EKG; Complete Time: 18:01 sujit 09/16 18:01 Order name: Cardiac monitoring; Complete Time: 19:41 [facility] 09/16 18:01 Order name: EKG - Nurse/Tech; Complete Time: 19:41 sujit 09/16 18:01 Order name: IV Saline Lock; Complete Time: 18:03 sujit 09/16 18:01 Order name: Labs collected and sent; Complete Time: 19:41 sujit 09/16 18:01 Order name: O2 Per Protocol; Complete Time: 18:03 sujit 09/16 18:01 Order name: O2 Sat Monitoring; Complete Time: 18:03 sujit 09/16 18:01 Order name: IV Saline Lock - Large Bore; Complete Time: 18:03 sujit EC:21 Rate is 87 beats/min. Rhythm is regular. QRS Glen is Normal. MO interval is normal. QRS sujit interval is normal. QT interval is normal. No Q waves. T waves are Normal. No ST changes noted. Clinical impression: NSR w/ Non-specific ST/T Changes and No evidence of ischemia. Interpreted by me. Reviewed by me. Administered Medications: 18:12 Drug: Nitroglycerin Transdermal Ointment 2 % 1 inches Transdermal once Route: ar8 Transdermal; Site: anterior chest wall; 19:19 Follow up: Response: No adverse reaction; Blood pressure is lowered ph 18:27 Drug: Furosemide IVP 60 mg IVP once; give over 2 minutes Route: IVP; Site: left hand; ph 19:19 Follow up: Response: No adverse reaction ph 18:27 Drug: morphine IVP or IV 4 mg IVP once over 4 mins Route: IVP; Infused Over: 4 mins; ph Site: left hand; 19:19 Follow up: Response: No adverse reaction ph 18:27 Drug: Ondansetron IVP 4 mg IVP once; over 2 minutes Route: IVP; Site: left hand; ph 19:20 Follow up: Response: No adverse reaction ph 21:16 Drug: Cefepime IVPB 1 grams IVPB at 200 ml/hr once over 30 mins; (mix in NS 100 mL) km10 Route: IVPB; Rate: 200 ml/hr; Infused Over: 30 mins; Site: right antecubital; 21:16 Drug: Albumin IVPB 25 grams 100 ml IVPB once; (Note: Albumin 25% concentration) Volume: km10 100 ml; Route: IVPB; Site: left wrist; 22:18 Follow up: Response: No adverse reaction; IV Status: Completed infusion km10 Disposition: 19:19 Critical Care:. sujit Disposition Summary: 09/16/24 19:26 Hospitalization Ordered Notes: Hospitalization Status: Inpatient Admission sujit Provider: Fadumo Patricia cha Condition: Fair sujit Problem: new sujit Symptoms: have improved sujit Bed/Room Type: Standard sujit Location: Intensive Care Unit(09/16/24 22:15) rv1 Room Assignment: 6-(09/16/24 22:15) rv1 Diagnosis - Morbid (severe) obesity with alveolar hypoventilation sujit - Chronic combined systolic (congestive) and diastolic (congestive) heart failure sujit - Edema, unspecified sujit - Hypoxemia sujit - Chronic kidney disease, unspecified sujit - Essential (primary) hypertension sujit - Acute kidney failure, unspecified sujit - Pleural effusion, not elsewhere classified - bilateral, moderate sujit Forms: - Medication Reconciliation Form sujit - SBAR form sujit - Leadership Thank You Letter sujit Critical care time excluding procedures: 19:19 Critical care time: Bedside Care: 40 minutes, Consultation: 20 minutes, Family sujit Intervention: 10 minutes. Total time: 70 minutes Signatures: Dispatcher [employer] EDMS Roddy Drake MD MD cha Hall, Patricia, RN RN ph Stephanie Haynes PA-C PABarbra sb4 Mayra Degroot rv1 Magaly Edwards, RN RN km10 Alli Jaeger RN RN ar8 Corrections: (The following items were deleted from the chart) 18:02 18:01 BASIC METABOLIC PANEL+C.LAB.BRZ ordered. EDMS EDMS 18:02 18:01 CBC+H.LAB.BRZ ordered. EDMS EDMS 18:02 18:01 HEPATIC FUNCTION+C.LAB.BRZ ordered. EDMS EDMS 18:02 18:01 MAGNESIUM+C.LAB.BRZ ordered. EDMS EDMS 18:02 18:01 PROBNP+C.LAB.BRZ ordered. EDMS EDMS 18:02 18:01 PROTIME (+INR)+COAG.LAB.BRZ ordered. EDMS EDMS 18:02 18:01 Troponin High Sensitivity+C.LAB.BRZ ordered. EDMS EDMS 18:02 18:01 LIPASE+C.LAB.BRZ ordered. EDMS EDMS 18:02 18:01 COVID-19 Ag + Flu A+B Ag+I.LAB.BRZ ordered. EDMS EDMS 18:02 18:01 BLOOD CULTURE*+BA.LAB.BRZ ordered. EDMS EDMS 18:02 18:01 LACTATE+C.LAB.BRZ ordered. EDMS EDMS 18:02 18:01 UA Rfx Rowdy Cult if indicated+U.LAB.BRZ ordered. EDMS EDMS 22:15 19:26 Telemetry/MedSurg (Inpatient) sujit rv1 22:15 19:26 sujit rv1
[2024-09-16 19:35] LABS: ALT/SGPT 22.0 U/L (16-61); AST/SGOT 54.0 U/L (15-37); Albumin 2.2 g/dL (3.4-5.0); Albumin/Globulin Ratio 0.5 (1.1-1.8); Alkaline Phosphatase 181.0 U/L (45-117); Anion Gap 10.0 mEq/L (5.0-15.0); BUN Blood Urea Nitrogen 34.0 mg/dL (7-18); Bilirubin Indirect, Calculated 0.4 mg/dL (0.2-0.8); Globulin 4.4 g/dL (2.3-3.5); Glucose Level 123.0 mg/dL (74-106); Lipase 191.0 U/L (13-75); Magnesium 2.4 mg/dL (1.6-2.4); NT PRO-BNP 6609.0 pg/mL (<125); Potassium 4.0 mEq/L (3.5-5.1); Troponin High Sensitivity 50.4 pg/mL (<58.9)
[2024-09-16 20:04] LABS: Sqamous Epithelial <5 /HPF (None Seen); Urine Culture Reflex Order NOT NEEDED; Urine Microscopic Reflex YN ORDER UMIC; Urine WBC Clump Rare /HPF (None Seen)
[2024-09-16 20:05] LABS: Influenza A Ag Negative; Influenza B Ag Negative; SARS-CoV-2 Antigen Rapid Res Negative (Negative)
--- NOTE | 2024-09-16 20:29 | RAD REPORT ---
EXAMINATION: US BILATERAL LOWER EXTREMITY VENOUS DOPPLER CLINICAL INDICATION: Pain;Swelling TECHNIQUE: Complete bilateral duplex sonography of the BILATERAL lower extremity veins was performed. The examination included compression for vein patency, color Doppler imaging and flow augmentation in response to distal compression of the distal external iliac, common femoral, femoral, popliteal, t ibial, and great and small saphenous veins. COMPARISON: No prior exam. FINDINGS: Duplex sonography testing of the veins of the BILATERAL lower extremity was performed. Color flow tomi ging shows all veins to be compressible with [id number] color filling. Pulsatile and phasic flow is present within all lower extremity deep and superficial veins examined. IMPRESSION: There is no deep vein or superficial vein thrombosis.
[2024-09-16] MEDS ORDERED: NA CHLORIDE 0.9% 0 ML ONE (21:00)
[2024-09-16] MEDS ORDERED: ALBUMIN HUMAN 25% 100 ML IV ONE (21:01)
[2024-09-16] MEDS ORDERED: CEFEPIME 1 GM/VIAL ONE (21:01)
--- NOTE | 2024-09-16 21:43 | P.HP ---
Certification for Inpatient Patient admitted to: Inpatient With expected LOS: >2 Midnights Patient will require the following post-hospital care: None Practitioner: I am a practitioner with admitting privileges, knowledge of patient current condition, hospital course, and medical plan of care. Services: Services provided to patient in accordance with Admission requirements found in Title 42 Section 412.3 of the Code of Federal Regulations Patient History Date of Service: 09/16/24 Reason for admission: Volume overload with AHRF 2/2 decompensated CHF exacerbation/EBVERLY. History of Present Illness: Patient is a 53-year-old male with past medical history of CHF, type 2 diabetes mellitus, morbid obesity, hypertension, brought to the ER today due to worsening shortness of breath with associated bilateral lower extremities severe pitting edema 4+, and anasarca. Patient states he has been having shortness of breath for more than 2 to 3 weeks, states within the past 48 hours prior to arrival to ER his shortness of breath has progressively worsened, states today he had profound shortness of breath to the extent that he was unable to ambulate even w ithin a short distance without having severe shortness of breath, which then prompted him to report to the ER. Upon arrival to ER, patient was in severe respiratory distress and had to be put on BiPAP. Patient states he ran out of his medications 3 weeks ago, when inquired from the patient if he has a PCP, patient states he does not have a PCP, but the who was present at bedside states patient is lying, states that he has a PCP. Patient appears to be noncompliance with his medications and treatment plan. Patient does not remember the medications that he takes. On admission assessment, patient has severe bilateral lower extremities pitting edema 4+, anasarca with swollen scrotum, bilateral pulmonary congestion with scattered crackles and rhonchi, patient currently on BiPAP. Patient is able to communicate in short sentences. While in ER, CT of the chest/abdomen and pelvis was ordered, patient taken to have the exam done, but was not done because patient states he cannot lay flat. Course in ER: (1) chest x-ray, impression; (A) moderate CHF/volume overload pattern suspected. (2) bilateral lower extremities venous Doppler, impression: (A) There is no deep vein or superficial vein thrombosis. Patient administered 100 mg IV Lasix, nitro ointment 1 g, Zofran 4 mg IV, albumin 25 g, cefepime 1 g IV, and placed on BiPAP. 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 - Family History Father -: Diabetes, Cancer (Colon cancer.) Mother -: Heart disease, Cancer (Cervical cancer) - Social History Smoking Status: Unknown if ever smoked Alcohol use: Yes CD- Drugs: No Caffeine use: Yes Place of Residence: Home Review of Systems 10-point ROS is otherwise unremarkable General: Weakness Respiratory: Shortness of Breath, SOB with Excertion Physical Examination - Vital Signs Pulse: 98 Pulse Ox (%): 97 - Physical Exam General: Alert, Oriented x3, Cooperative HEENT: Atraumatic, Normocephalic Neck: Supple, 2+ carotid pulse no bruit, No LAD, JVD distended Respiratory: Diminished, Crackles/rales (Bilateral crackles and rhonchi) Cardiovascular: Normal pulses, Normal S1 S2, No gallops, No rubs, No murmurs, Edema (4+ pitting edema bilateral lower extremities, and anasarca.) Capillary refill: <2 Seconds Gastrointestinal: Normal bowel sounds, Soft and benign, No ascites, No tenderness, No masses, No rebound, No guarding Musculoskeletal: No clubbing, No contractures, No erythema, No tenderness, No warmth Integumentary: No rashes, No breakdown, No erythema, No warmth, No cyanosis Neurological: Normal speech, Normal strength at 5/5 x4 extr, Normal tone, Sensation intact, Cranial nerves 3-12 intact, Normal reflexes 2+, Normal affect Lymphatics: No axilla or inguinal lymphadenopathy External genitalia: Other (Swollen scrotum) - Studies Laboratory Data (last 24 hrs) 09/16/24 09/16/24 09/16/24 18:55 18:55 18:55 WBC 10.90 Hgb 13.0 L Hct 39.7 Plt Count 333 PT 14.1 H INR 1.26 Sodium 142 Potassium 4.0 BUN 34 H Creatinine 2.07 H Glucose 123 H Magnesium 2.4 Total Bilirubin 0.8 AST 54 H ALT 22 Alkaline Phosphatase 181 H Lipase 191 H Male Exam - Male Exam Inguinal exam: No hernias Testicular exam: Other (Swollen scrotum.) Assessment and Plan - Plan Patient is a 53-year-old male reports to ER complaining of worsening shortness of breath with associated bilateral lower extremities edema 4+ pitting, anasarca with swollen scrotum, with no associated chest pain. Patient admitted inpatient, with diagnosis of volume overload with AHRF secondary to decompensated CHF exacerbation, and BEVERLY. (1)Volume overload with AHRF 2/2 decompensated CHF exacerbation. Patient received Lasix 100 mg IV in ER, and albumin 25 g. -Order infusion albumin 12.5 gram, Lasix 100 mg in NS at 20 mL/ hr. Patient have 4+ bilateral lower extremities pitting edema, anasarca, with swollen scrotum. -Order spironolactone 25 mg p.o. daily. -Consult assisted living associate. -Continue on carvedilol 25 mg p.o. twice daily. -Order echocardiogram. -Daily weight. -Fluid restriction p.o. 2000 mL every 24 hours. (2)Chronic uncontrolled hypertension. Patient has been noncompliant with his medications. Patient systolic blood pressures in the 200s. -Resume patient home medications carvedilol 25 mg p.o. twice daily. Instruct the nurse to give a dose tonight. -Resume home medication hydralazine 100 mg p.o. 3 times daily. Instruct the nurse to give a dose tonight. (3)Chronic type 2 diabetes mellitus. -Will resume patient home medication when reconciled. -Order moderate sliding scale, and ACHS. (4)Explained the entire treatment plan to the patient, and present at the bedside, solicit questions answered and voiced understanding. Did some additional teaching to the patient and on the importance of medications compliance especially since he has CHF and diabetes mellitus. Patient is noncompliance with his medications management and disease process management. Patient voiced understanding Discharge Plan: Home Plan to discharge in: Greater than 2 days - Advance Directives Does patient have a Living Will: No Does patient have a Durable POA for Healthcare: No - Code Status/Comfort Care Code Status Assessed: Yes Code Status: Full Code Critical Care: Yes Time Spent Managing Pts Care (In Minutes): 60
[2024-09-16] MEDS: ALBUMIN HUMAN 25% 12.5 GM, FUROSEMIDE 100 MG in NA CHLORIDE 0.9% 40 ML IV SCH (22:00)
[2024-09-16] MEDS: ALBUMIN HUMAN 25% 50 ML IV ONE (22:56)
[2024-09-16] MEDS: NA CHLORIDE 0.9% 100 ML ONE (22:57)
[2024-09-16] MEDS: NA CHLORIDE 0.9% 50 ML ONE (23:01)
[2024-09-16] MEDS: FUROSEMIDE 20 MG/ 2ML VIAL ONE (23:02)
[2024-09-16] MEDS: FUROSEMIDE 40 MG/4 ML VIAL ONE (23:02)
[2024-09-17] MEDS: HYDRALAZINE HCL 25 MG TABLET PO SCH (00:18)
[2024-09-17] MEDS: HEPARIN 5000 UNIT/ML 1 ML VIAL SQ SCH (00:20)
[2024-09-17] MEDS: FUROSEMIDE 20 MG/ 2ML VIAL ONE (03:18)
[2024-09-17] MEDS: NA CHLORIDE 0.9% 50 ML ONE (03:18)
[2024-09-17] MEDS: FUROSEMIDE 40 MG/4 ML VIAL ONE (03:19)
[2024-09-17] MEDS: ALBUMIN HUMAN 25% 50 ML IV ONE (03:21)
[2024-09-17] MEDS: ALBUTEROL 2.5 MG/3 ML NEB SOL NEB PRN ×2 (05:40→19:30)
[2024-09-17] MEDS: IPRATROPIUM BROM 0.5MG/2.5ML NEB PRN (05:40)
[2024-09-17 06:59] LABS: Absolute Lymphocytes (CBC) 1.8 K/uL (0.7-4.9); Hematocrit 40.0 % (39.6-49.0); Hemoglobin 12.7 g/dL (13.6-17.9); MCH 29.2 pg (27.0-35.0); MCHC 31.9 g/dL (32.0-36.0); MCV 91.7 fL (80-100); MPV 9.3 fL (7.6-11.3); Nucleated RBC Absolute Count 0.0 (0-0); Nucleated Red Blood Cells % 0.0 % (0-0); RBC Red Blood Cell Count 4.36 M/uL (4.33-5.43); White Blood Count 11.20 thou/uL (4.3-10.9)
[2024-09-17 07:02] LABS: ALT/SGPT 25.0 U/L (16-61); AST/SGOT 36.0 U/L (15-37); Albumin 2.6 g/dL (3.4-5.0); Albumin/Globulin Ratio 0.7 (1.1-1.8); Alkaline Phosphatase 170.0 U/L (45-117); Anion Gap 9.0 mEq/L (5.0-15.0); BUN Blood Urea Nitrogen 36.0 mg/dL (7-18); C-Reactive Protein 54.8 mg/L (<3.00); Globulin 4.0 g/dL (2.3-3.5); Glucose Level 95.0 mg/dL (74-106); Magnesium 2.3 mg/dL (1.6-2.4); NT PRO-BNP 7184.0 pg/mL (<125); Potassium 4.0 mEq/L (3.5-5.1)
--- NOTE | 2024-09-17 07:10 | P.PN ---
Date of Service: 09/17/24 Subjective: feeling better this morning compared to ER Ran out of meds a few weeks ago and was unable to afford refills BP more controlled in 150-170s denies chest pain denies any new or worsening problems Physical Exam: GEN: Alert, oriented, NAD CV: Regular rate and rhythm, 3+ bilateral lower extremity edema, anasarca Pulm: mildly labored respirations on 4L NC, diminished at bases bilaterally ABD: soft, nontender, nondistended Neuro: Normal speech, normal affect Mcintyre placed in ED Problem List: Acute on chronic diastolic CHF exacerbation (55-60%EF - June 2024) Anasarca secondary to medication noncompliance Acute hypoxic respiratory failure secondary to the above Hypertensive emergency, resolved BEVERLY on CKD NIDDM2 Hyperlipidemia Hx of CVA (Left MCA territory 10/2022) Hx of Vitamin B12 deficiency Acute on chronic diastolic CHF exacerbation (55-60%EF - June 2024) Anasarca secondary to medication noncompliance Acute hypoxic respiratory failure secondary to the above on admission, presents with worsening shortness of breath, significant lower extremity edema, anasarca, orthopnea History of medication noncompliance due to insurance/cost. Ran out of meds a few weeks ago and was unable to afford refills. Refused CT in the ED due to unable to lay flat. Most recent echo (07/06/24): 55-60% EF, grade 2 diastolic dysfunction, elevated filling pressure Given IV ketamine in ED due to anxiety / unable to tolerate BiPAP. Off BiPAP since ED now tolerating NC CXR (09/16): Moderate CHF/volume overload. Continue Lasix/Albumin drip Continue Spironolactone 25mg daily Echo ordered to re-eval EF / stenosis Wean oxygen as tolerated. Cardiology consulted [facility] Hypertensive emergency, resolved BP 245/121 on arrival. restart home coreg, hydralazine, marcos Monitor BP closely. BP more controlled in 170-180s BEVERLY on CKD Monitor renal function. Monitor and replete electrolytes as needed. Nephrology consulted On Lasix/albumin drip Mcintyre placed in ED NIDDM2 accu-cheks, SSI Hyperlipidemia Hx of CVA (Left MCA territory 10/2022) Hx of Vitamin B12 deficiency confirm home meds, restart as appropriate VTE: heparin sq Code: Full Dispo: Continue ICU level of care Pending further diuresis, BP control Time Spent Managing Pts Care (In Minutes): 55
[2024-09-17] MEDS: INSULIN REGULAR (HUMAN) 100 UNIT/ML SQ SCH (07:30)
[2024-09-17] MEDS: ENALAPRIL 10 MG TAB PO SCH (09:00)
[2024-09-17] MEDS: PNEUMOCOCCAL VACCINE 0.5 ML IMVAC ONE (09:00)
[2024-09-17 09:17] LABS: Blood O2 Saturation 93.6 % (92.0-98.5)
[2024-09-17 09:18] LABS: Arterial Blood Carboxyhemoglob 1.5 % (0.0-1.5); Blood Gas Inspired Oxygen 28.0 %; Blood Gas Oxyhemoglobin 94.3 % (94.0-97.0)
[2024-09-17] MEDS: ASPIRIN EC 81 MG TAB PO SCH (09:43)
[2024-09-17] MEDS: FUROSEMIDE IV SCH (09:55)
[2024-09-17] MEDS: NA CHLORIDE 0.9% IV SCH (09:55)
[2024-09-17] MEDS: ALBUMIN HUMAN IV SCH (09:55)
[2024-09-17] MEDS: SPIRONOLACTONE 25 MG TABLET PO SCH (12:00)
--- NOTE | 2024-09-17 13:01 | P.CNS ---
Date of Consult: 09/17/24 Reason for Consult: BEVERLY, CKD, fluid overload, proteinuria Requesting Physician: Marc Malik Chief Complaint: Volume overload with AHRF 2/2 decompensated CHF exacerbation/BEVERLY. History of Present Illness: Pt is a 53 yo HM with a hx of type 2 diabetes mellitus, uncontrolled in the past, with unspecified complications, morbid obesity, hypertension, CKD development over the past few years with rise in Cr levels and proteinuria with recent evaluation in clinic by Dr. Hanna. See his office notes for details. Pt reports generalized edema, weight gain and dyspnea over the past few mo. He was brought to the ER yesteday due to worsening shortness of breath with associated bilateral lower extremities severe pitting edema. Pt is a poor historian as far as medications and additional history. He was admitted to the ICU and placed on a Albumin/lasix drip, rees in placed, he is diuresing sub optimally. Allergies No Known Allergies Allergy (Unverified 03/15/24 22:19) Home Medications: Dulaglutide [Trulicity] 1.5 mg SQ 07/06/24 Isosorbide Dinitrate [Isordil] 30 mg PO QID 07/06/24 carvediloL [Coreg] 25 mg PO BID 07/06/24 Furosemide [Lasix] 80 mg PO BIDL #60 tab 07/14/24 Hydralazine HCl 100 mg PO TID #90 tab 07/14/24 metOLazone [Zaroxolyn*] 5 mg PO M,W,F #16 tab 07/14/24 - Past Medical/Surgical History Diabetic: Yes -: Hypertension -: [id number] diabetes -: CHF -: CKD followed by Dr. 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 - Family History Father Medical History: Diabetes, Cancer (Colon cancer.) Mother Medical History: Heart disease, Cancer (Cervical cancer) - Social History Smoking Status: Unknown if ever smoked Alcohol use: Yes CD- Drugs: No Caffeine use: Yes Place of Residence: Home Review of Systems Limited General: Weakness, As per HPI Eyes: Unremarkable ENT: Unremarkable Respiratory: Shortness of Breath, As per HPI Cardiovascular: Edema, Unremarkable Gastrointestinal: Other (distention) Genitourinary: As per HPI Musculoskeletal: Other (Swollen tight extremities) Integumentary: Unremarkable Neurological: Other (Lethargic), As per HPI Physical Examination Temp Pulse Resp BP Pulse Ox 97.3 F 74 26 H 147/70 H 95 09/17/24 08:00 09/17/24 10:00 09/17/24 10:00 09/17/24 10:00 09/17/24 10:00 General: Other (Appears chronically ill, lethargic) HEENT: Atraumatic, Normocephalic, Other (LFNC) Neck: Supple Respiratory: Other (poor resp effort, non tachypnec, reduced BS at bases) Cardiovascular: Other (Non tachy, distant heart sounds) Gastrointestinal: Other (Obese, mod disention, SC edema, NT, scotal edema) Musculoskeletal: Other (Tight pitting and non pitting edema to the dependent areas) Integumentary: No rashes Neurological: Other (Awakens easily, responds slowly, briefly) Laboratory Data (last 24 hrs) 09/16/24 09/16/24 09/16/24 18:55 18:55 18:55 WBC 10.90 Hgb 13.0 L Hct 39.7 Plt Count 333 PT 14.1 H INR 1.26 Sodium 142 Potassium 4.0 BUN 34 H Creatinine 2.07 H Glucose 123 H Magnesium 2.4 Total Bilirubin 0.8 AST 54 H ALT 22 Alkaline Phosphatase 181 H Lipase 191 H Conclusions/Impression: A/P) 1. Sub-acute Stage 1 BEVERLY on underlying CKD Stage III with concern for sub-acute nephrotic syndrome possibly 2nd to diabetic nephropathy with A1c > 10% a few years ago +/- other, prior renal imaging w/u and limited serologic w/u thus far has been negative per review of Dr. Hanna's office visit note, request note/records for full details. 2. Fluid overload. Generalized edema. Acute pulmonary edema. Acute hypercarbic, hypoxic resp failure. Elevated BNP levels. Pt is on a IV Albumin/Lasix drip per IM team, reviewed concentration/drip rate, will add Metolazone dose for seq nephron blockade. Will monitor weights and output closely 3. Proteinuria, unspecified. Obtain 24h urine protein evaluation. Marked abnormality of albumin noted 4. Hypertensive urgency on admission with SBP correcting by > 24h, will suspend ACEi for now in the setting of above. Avoid/monitor for relative hypotension with diuresis efforts. 5. Heart failure unspecified, TTE/w/u per IM team. Juan Fong MD, FASN
[2024-09-17] MEDS: METOLAZONE 5 MG TABLET PO SCH (14:00)
[2024-09-17] MEDS: ONDANSETRON 4 MG/2 ML VIAL IV PRN (19:32)
[2024-09-17] MEDS: METHYLPREDNISOLONE 125 MG INJ IV ONE (20:05)
[2024-09-18 05:27] LABS: Absolute Lymphocytes (CBC) 0.5 K/uL (0.7-4.9); Hematocrit 39.1 % (39.6-49.0); Hemoglobin 12.9 g/dL (13.6-17.9); MCH 30.2 pg (27.0-35.0); MCHC 32.9 g/dL (32.0-36.0); MCV 91.6 fL (80-100); MPV 8.9 fL (7.6-11.3); Nucleated RBC Absolute Count 0.0 (0-0); Nucleated Red Blood Cells % 0.0 % (0-0); RBC Red Blood Cell Count 4.27 M/uL (4.33-5.43); White Blood Count 7.30 thou/uL (4.3-10.9)
[2024-09-18 05:46] LABS: ALT/SGPT 20.0 U/L (16-61); AST/SGOT 19.0 U/L (15-37); Albumin 2.4 g/dL (3.4-5.0); Albumin/Globulin Ratio 0.6 (1.1-1.8); Alkaline Phosphatase 140.0 U/L (45-117); Anion Gap 9.5 mEq/L (5.0-15.0); BUN Blood Urea Nitrogen 44.0 mg/dL (7-18); C-Reactive Protein 46.0 mg/L (<3.00); Globulin 3.7 g/dL (2.3-3.5); Glucose Level 159.0 mg/dL (74-106); Magnesium 2.3 mg/dL (1.6-2.4); NT PRO-BNP 6892.0 pg/mL (<125); Potassium 4.5 mEq/L (3.5-5.1)
--- NOTE | 2024-09-18 07:44 | P.PN ---
Date of Service: 09/18/24 Vital Signs Temp Pulse Resp BP Pulse Ox 98.6 F 63 21 H 129/54 L 96 09/18/24 04:00 09/18/24 06:00 09/18/24 06:00 09/18/24 06:00 09/18/24 06:00 Medications Albuterol Sulfate (Albuterol 2.5 Mg/3 Ml Neb Carlene) 2.5 mg NEB [id number] PRN PRN Reason: SHORTNESS OF BREATH Last Admin: 09/18/24 00:52 Dose: 2.5 mg Aspirin (Aspirin Ec 81 Mg Tab) 81 mg PO DAILY [facility] Last Admin: 09/17/24 09:43 Dose: 81 mg Carvedilol (Carvedilol 25 Mg Tab) 25 mg PO BID 6AM 6PM [facility] Last Admin: 09/18/24 05:21 Dose: 25 mg Heparin Sodium (Porcine) (Heparin 5000 Unit/Ml 1 Ml Vial) 5,000 unit SQ Q8HR [facility] Last Admin: 09/18/24 00:22 Dose: 5,000 unit Hydralazine HCl (Hydralazine Hcl 25 Mg Tablet) 100 mg PO TID [facility] Last Admin: 09/17/24 20:31 Dose: Not Given Albumin Human 12.5 gm/Furosemide 40 mg/ Sodium Chloride 100 mls @ 12.5 mls/hr IV Q8H [facility] Last Admin: 09/18/24 01:45 Dose: 100 mls Insulin Human Regular (Insulin Regular (Human) 100 Unit/Ml) 0 unit SQ ACHS [facility]; Protocol Last Admin: 09/17/24 20:31 Dose: Not Given Ipratropium [place] (Ipratropium Brom 0.5mg/2.5ml) 0.5 mg NEB [id number] PRN PRN Reason: SHORTNESS OF BREATH Last Admin: 09/18/24 00:52 Dose: 0.5 mg Ondansetron HCl (Ondansetron 4 Mg/2 Ml Vial) 4 mg IV Q6HP PRN PRN Reason: NAUSEA / VOMITING Last Admin: 09/17/24 19:32 Dose: 4 mg Spironolactone (Spironolactone 25 Mg Tablet) 25 mg PO DAILY [facility] Last Admin: 09/17/24 12:00 Dose: 25 mg Microbiology Results 09/16/24 18:35 Blood - Blood Aerobic Blood Culture - Preliminary No growth in 24 hours. 09/16/24 18:35 Blood - Blood Anaerobic Blood Culture - Preliminary No growth in 24 hours. 09/16/24 18:55 Blood - Blood Aerobic Blood Culture - Preliminary No growth in 24 hours. 09/16/24 18:55 Blood - Blood Anaerobic Blood Culture - Preliminary No growth in 24 hours. Assessment/ Plan: Nephrology No dyspnea No chest pain No acute events overnight Vitals, medications, blood work and imaging reviewed in the chart NAD. MMM. NCAT. Normal Respiratory Effort. S1S2. ND Abd. No C/C. Anasarca. No rash. AAO. Normal speech. EXAMINATION: ONE VIEW CHEST XR CLINICAL INDICATION: COUGH TECHNIQUE: Frontal chest projection is submitted. Examination is limited by patient positioning and technique. COMPARISON: 07/14/2024 FINDINGS: Moderate bilateral pulmonary opacities suggest pulmonary edema. Moderate bilateral pleural effusions. The heart is enlarged. No displaced fractures identified. IMPRESSION: Moderate CHF/volume overload pattern suspected. LEFT VENTRICULAR WALL MOTION: NORMAL DOPPLER/COLOR FLOW: GRADE I DIASTOLIC DYSFUNCTION COMMENTS: 1. NORMAL LEFT VENTRICULAR SYSTOLIC FUNCTION, EJECTION FRACTION 55-60%, NORMAL WALL MOTION 2. GRADE II DIASTOLIC DYSFUNCTION 3. ELEVATED FILLING PRESSURE (RIGHT ATRIAL PRESSURE 15-20 mmHg) A/P Stage I BEVERLY may be CRS CKD III with Proteinuria -No NSAIDs -Continue diuresis HTN with CKD/ CHF -Continue Coreg -Continue Hydralazine Diastolic CHF, A/C Pulmonary Edema/ Anasarca Acute Hypercarbic/ Hypoxic Respiratory Failure -Increase Lasix gtt -Continue Spironolactone -Metolazone X1 DM II with CKD -RISS Hypoalbuminemia -Continue IV Albumin Hospitalist note reviewed Patient care 40min
--- NOTE | 2024-09-18 08:08 | P.PN ---
Date of Service: 09/18/24 Subjective: tolerated bipap for several hours overnight. From ~8pm-2am doesn't feel anything is getting worse states skin feels tight urine appears slightly lean sensei in color, still low UOP Physical Exam: GEN: Alert, oriented, NAD CV: Regular rate and rhythm, 3+ bilateral lower extremity edema, anasarca Pulm: mildly labored respirations on BiPAP at night, HFNC during day, diminished at bases bilaterally ABD: soft, nontender, nondistended Neuro: Normal speech, normal affect Mcintyre placed in ED Problem List: Acute on chronic diastolic CHF exacerbation (55-60%EF - June 2024) Anasarca secondary to medication noncompliance Acute hypoxic respiratory failure secondary to the above Hypertensive emergency, resolved BEVERLY on CKD NIDDM2 Hyperlipidemia Hx of CVA (Left MCA territory 10/2022) Hx of Vitamin B12 deficiency Acute on chronic diastolic CHF exacerbation (55-60%EF - June 2024) Anasarca secondary to medication noncompliance Acute hypoxic respiratory failure secondary to the above on admission, presents with worsening shortness of breath, significant lower extremity edema, anasarca, orthopnea History of medication noncompliance due to insurance/cost. Ran out of meds a few weeks ago and was unable to afford refills. Refused CT in the ED due to unable to lay flat. Most recent echo (07/06/24): 55-60% EF, grade 2 diastolic dysfunction, elevated filling pressure Given IV ketamine in ED due to anxiety / unable to tolerate BiPAP. Off BiPAP since ED now tolerating NC CXR (09/16): Moderate CHF/volume overload. Continue Lasix/Albumin drip Continue Spironolactone 25mg daily Echo ordered to re-eval EF / stenosis Wean oxygen as tolerated. Cardiology consulted Given IV steroids x1 overnight Will try for another CT to further evaluate. previously refused in ED. Pt states he will try his best, scared about breathing laying flat Hypertensive emergency, resolved BP 245/121 on arrival. continue home coreg, hydralazine, marcos BP more controlled in 120-140s once restarting home meds BEVERLY on CKD Monitor renal function. Monitor and replete electrolytes as needed. Nephrology consulted On Lasix/albumin drip Mcintyre placed in ED NIDDM2 accu-cheks, SSI Hyperlipidemia Hx of CVA (Left MCA territory 10/2022) Hx of Vitamin B12 deficiency confirm home meds, restart as appropriate VTE: heparin sq Code: Full Dispo: Continue ICU level of care Pending further diuresis, BP control Time Spent Managing Pts Care (In Minutes): 55
--- NOTE | 2024-09-18 09:44 | RAD REPORT ---
EXAMINATION: CT ABDOMEN AND PELVIS WITHOUT CONTRAST CLINICAL INDICATION: edison, dk urine eval kidne/bladder, r/o obstruction TECHNIQUE: CT abdomen and pelvis was performed, without IV contrast, as per department protocol. Axia l, sagittal and coronal reconstructions were obtained. One or more of the following dose reduction techniques were used: Automated exposure control, adjustment of the mA and kV according to the patien t size, and iterative reconstruction. Unless otherwise specified, incidental findings do not require dedicated imaging follow-up. COMPARISON: 07/09/2024 FINDINGS: The lack of intravenous contrast limits the sensitivity of this exam for evaluation of solid visceral organs, vascular structures, and retroperitoneum. LOWER CHEST: Moderate atelectasis in both lung bases with small/moderate bilateral pleural effusions. LIVER:Normal in size and contour. No focal lesion. Grossly unremarkable gallbladder. SPLEEN: Normal size. No focal lesion. PANCREAS: No mass, ductal dilation, or riley-pancreatic fluid. ADRENALS: Normal; no mass. KIDNEYS AND URETERS: Normal size and contour. No hydronephrosis. URINARY BLADDER: Normal contour. GASTROINTESTINAL TRACT: Small volume of ascites is seen. No bowel obstruction, free air or abscess. APPENDIX: Normal appendix. LYMPH NODES: No lymphadenopathy. MUSCULOSKELETAL: No acute or suspicious osseous abnormality. ADDITIONAL FINDINGS: There is a significant amount of body wall edema. IMPRESSION: Anasarca. Small/moderate bilateral pleural effusions and compressive atelectasis in the lung bases. Small volum e of ascites in the pelvis. No acute intra-abdominal or pelvic finding.
--- NOTE | 2024-09-18 11:47 | P.CNS ---
Date of Consult: 09/18/24 Chief Complaint: Volume overload with AHRF 2/2 decompensated CHF exacerbation/BEVERLY. History of Present Illness: Patient with PMH of HTN, Chronic diastolic heart failure, Morbid obesity, presented with worsening SOB, MATA, Bilateral lower extremities edema, denies chest pain, no palpitations, no syncope, has not been complaint with medications. Allergies No Known Allergies Allergy (Unverified 03/15/24 22:19) Home medications list reviewed: Yes Home Medications: Dulaglutide [Trulicity] 1.5 mg SQ 07/06/24 Isosorbide Dinitrate [Isordil] 30 mg PO QID 07/06/24 carvediloL [Coreg] 25 mg PO BID 07/06/24 Furosemide [Lasix] 80 mg PO BIDL #60 tab 07/14/24 Hydralazine HCl 100 mg PO TID #90 tab 07/14/24 metOLazone [Zaroxolyn*] 5 mg PO M,W,F #16 tab 07/14/24 - Past Medical/Surgical History Diabetic: Yes -: Hypertension -: [id number] diabetes -: CHF -: CKD followed by Dr. 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 moist/pink, EOMI, Sclerae nonicteric Neck: Supple, 2+ carotid pulse no bruit, No LAD, Without JVD or thyroid abnormality Respiratory: Clear to auscultation bilaterally, Normal air movement Cardiovascular: Regular rate/rhythm, Normal S1 S2 Gastrointestinal: Normal bowel sounds, No tenderness Musculoskeletal: No tenderness Integumentary: No rashes Neurological: Normal gait, Normal speech, Normal tone, Normal affect Lymphatics: No axilla or inguinal lymphadenopathy - Problems (1) Acute on chronic diastolic heart failure Current Visit: No Status: Acute Plan: continue lasix drip at 12.5 mg/hr continue coreg 25 bid continue aldactone 25 mg daily continue to monitor input and output and electrolytes patient echo recently shown normal EF, DD (2) Hypertension Current Visit: No Status: Acute Plan: continue above medications (3) Type II diabetes mellitus Current Visit: No Status: Acute Plan: add farxiga 10 mg daily
[2024-09-18] MEDS: ALBUMIN HUMAN IV SCH (21:00)
[2024-09-18] MEDS: NA CHLORIDE 0.9% IV SCH (21:00)
[2024-09-18] MEDS: FUROSEMIDE IV SCH (21:00)
[2024-09-18] MEDS: METOLAZONE 5 MG TABLET PO ONE (21:05)
[2024-09-19 06:20] LABS: ALT/SGPT 15.0 U/L (16-61); AST/SGOT 22.0 U/L (15-37); Albumin 2.6 g/dL (3.4-5.0); Albumin/Globulin Ratio 0.8 (1.1-1.8); Alkaline Phosphatase 122.0 U/L (45-117); Anion Gap 9.2 mEq/L (5.0-15.0); BUN Blood Urea Nitrogen 56.0 mg/dL (7-18); C-Reactive Protein 23.2 mg/L (<3.00); Globulin 3.4 g/dL (2.3-3.5); Glucose Level 131.0 mg/dL (74-106); Magnesium 2.3 mg/dL (1.6-2.4); NT PRO-BNP 8297.0 pg/mL (<125); Potassium 4.2 mEq/L (3.5-5.1); Uric Acid 8.1 mg/dL (3.5-7.2)
[2024-09-19 06:44] LABS: Absolute Lymphocytes (CBC) 1.7 K/uL (0.7-4.9); Hematocrit 37.0 % (39.6-49.0); Hemoglobin 12.4 g/dL (13.6-17.9); MCH 30.3 pg (27.0-35.0); MCHC 33.5 g/dL (32.0-36.0); MCV 90.4 fL (80-100); MPV 8.9 fL (7.6-11.3); Nucleated RBC Absolute Count 0.0 (0-0); Nucleated Red Blood Cells % 0.1 % (0-0); RBC Red Blood Cell Count 4.10 M/uL (4.33-5.43); White Blood Count 10.00 thou/uL (4.3-10.9)
[2024-09-19] MEDS: FUROSEMIDE IV SCH (09:16)
[2024-09-19] MEDS: ALBUMIN HUMAN IV SCH (09:16)
[2024-09-19] MEDS: NA CHLORIDE 0.9% IV SCH (09:16)
[2024-09-19] MEDS: METOLAZONE 5 MG TABLET PO ONE ×2 (09:16→21:02)
[2024-09-19 09:54] LABS: Urine Crystals Unidentified Moderate /HPF (None Seen); Urine Culture Reflex Order REFLEXED; Urine Microscopic Reflex YN ORDER UMIC; Urine WBC Clump Many /HPF (None Seen); Urine Yeast (Budding) Many /HPF (None Seen)
[2024-09-19 10:55] LABS: MA/CREAT RATIO 1482.3 (< 30.0); UR CREAT 141.0 mg/dL (20-370); UR MICROALBUMIN 209.0 mg/dL (< 1.9); UR PROTEIN 225.2 mg/dL (<11.9)
--- NOTE | 2024-09-19 11:36 | P.PN ---
Subjective Date of Service: 09/19/24 Chief Complaint: Volume overload with AHRF 2/2 decompensated CHF exacerbation/BEVERLY. Subjective: New changes (patient is more altered today, very low urine output) Review of Systems Unremarkable Physical Examination - Vital Signs Temperature: 97.4 F Blood Pressure: 128/64 Pulse: 59 Respirations: 13 Pulse Ox (%): 97 - Physical Exam General: In no apparent distress, Confused HEENT: Atraumatic, PERRLA, EOMI Neck: Supple, JVD not distended Respiratory: Clear to auscultation bilaterally, Normal air movement Cardiovascular: Regular rate/rhythm, Normal S1 S2, Edema Gastrointestinal: Normal bowel sounds, No tenderness Musculoskeletal: No tenderness Integumentary: No rashes Neurological: Normal speech, Normal tone, Normal affect Lymphatics: No axilla or inguinal lymphadenopathy - Studies Medications List Reviewed: Yes Assessment And Plan - Current Problems (Diagnosis) (1) Acute on chronic diastolic heart failure Current Visit: No Status: Acute Plan: Lasix drip was increased yesterday by Nephrology team, patient still with very low urine output, patient is more altered today with raising BUN and Cr., I expect patient will need dialysis. continue coreg 25 bid continue aldactone 25 mg daily continue to monitor input and output and electrolytes patient echo recently shown normal EF, DD (2) Hypertension Current Visit: No Status: Acute Plan: continue above medications (3) Type II diabetes mellitus Current Visit: No Status: Acute Plan: add farxiga 10 mg daily
--- NOTE | 2024-09-19 13:21 | P.PN ---
Date of Service: 09/19/24 Subjective: low UOP lethargic Physical Exam: GEN: Alert, oriented, NAD CV: Regular rate and rhythm, 3+ bilateral lower extremity edema, anasarca Pulm: cleart to auscultation ABD: soft, nontender, nondistended Neuro: normal affect Mcintyre placed in ED Problem List: Acute on chronic diastolic CHF exacerbation (55-60%EF - June 2024) Anasarca secondary to medication noncompliance Acute hypoxic respiratory failure secondary to the above Hypertensive emergency, resolved BEVERLY on CKD NIDDM2 Hyperlipidemia Hx of CVA (Left MCA territory 10/2022) Hx of Vitamin B12 deficiency Acute on chronic diastolic CHF exacerbation (55-60%EF - June 2024) Anasarca secondary to medication noncompliance Acute hypoxic respiratory failure secondary to the above on admission, presents with worsening shortness of breath, significant lower extremity edema, anasarca, orthopnea History of medication noncompliance due to insurance/cost. Ran out of meds a few weeks ago and was unable to afford refills. Refused CT in the ED due to unable to lay flat. Most recent echo (07/06/24): 55-60% EF, grade 2 diastolic dysfunction, elevated filling pressure Given IV ketamine in ED due to anxiety / unable to tolerate BiPAP. Off BiPAP since ED now tolerating NC CXR (09/16): Moderate CHF/volume overload. Continue Lasix/Albumin drip Continue Spironolactone 25mg daily Echo ordered to re-eval EF / stenosis Wean oxygen as tolerated. Cardiology consulted Hypertensive emergency, resolved BP 245/121 on arrival. continue home coreg, hydralazine, marcos BP more controlled in 120-140s once restarting home meds UTI -add rocephin, followup cultures -may need to add antifungal BEVERLY on CKD Monitor renal function. Monitor and replete electrolytes as needed. Nephrology consulted On Lasix/albumin drip Mcintyre placed in ED worsening creat NIDDM2 accu-cheks, SSI Hyperlipidemia Hx of CVA (Left MCA territory 10/2022) Hx of Vitamin B12 deficiency confirm home meds, restart as appropriate VTE: heparin sq Code: Full Dispo: Continue ICU level of care Pending further diuresis, BP control
[2024-09-19] MEDS: CEFTRIAXONE 1,000 MG in NA CHLORIDE 0.9% 50 ML IVPB SCH (14:13)
--- NOTE | 2024-09-19 20:17 | P.PN ---
Date of Service: 09/19/24 Vital Signs Temp Pulse Resp BP Pulse Ox 98 F 69 21 H 137/57 L 96 09/19/24 16:00 09/19/24 18:00 09/19/24 18:00 09/19/24 18:00 09/19/24 18:00 Medications Albuterol Sulfate (Albuterol 2.5 Mg/3 Ml Neb Carlene) 2.5 mg NEB [id number] PRN PRN Reason: SHORTNESS OF BREATH Last Admin: 09/18/24 14:13 Dose: 2.5 mg Aspirin (Aspirin Ec 81 Mg Tab) 81 mg PO DAILY [facility] Last Admin: 09/19/24 09:17 Dose: 81 mg Carvedilol (Carvedilol 25 Mg Tab) 12.5 mg PO BID 6AM 6PM [facility] Last Admin: 09/19/24 17:01 Dose: 12.5 mg Heparin Sodium (Porcine) (Heparin 5000 Unit/Ml 1 Ml Vial) 5,000 unit SQ Q8HR [facility] Last Admin: 09/19/24 17:00 Dose: 5,000 unit Albumin Human 12.5 gm/Furosemide 40 mg/ Sodium Chloride 100 mls @ 25 mls/hr IV Q4H [facility] Last Admin: 09/19/24 17:13 Dose: 100 mls Ceftriaxone Sodium 1,000 mg/ (Sodium Chloride) 50 mls @ 100 mls/hr IVPB DAILY [facility]; Protocol Last Admin: 09/19/24 14:13 Dose: 50 mls Insulin Human Regular (Insulin Regular (Human) 100 Unit/Ml) 0 unit SQ ACHS [facility]; Protocol Last Admin: 09/19/24 17:04 Dose: 3 unit Ipratropium [place] (Ipratropium Brom 0.5mg/2.5ml) 0.5 mg NEB [id number] PRN PRN Reason: SHORTNESS OF BREATH Last Admin: 09/18/24 14:13 Dose: 0.5 mg Nystatin (Nystatin Oint 15 Gm Tube) 1 appl TOP BID [facility] Ondansetron HCl (Ondansetron 4 Mg/2 Ml Vial) 4 mg IV Q6HP PRN PRN Reason: NAUSEA / VOMITING Last Admin: 09/17/24 19:32 Dose: 4 mg Spironolactone (Spironolactone 25 Mg Tablet) 25 mg PO DAILY [facility] Last Admin: 09/19/24 09:17 Dose: 25 mg Microbiology Results 09/16/24 18:35 Blood - Blood Aerobic Blood Culture - Preliminary No growth in 24 hours. 09/16/24 18:35 Blood - Blood Anaerobic Blood Culture - Preliminary No growth in 24 hours. 09/16/24 18:55 Blood - Blood Aerobic Blood Culture - Preliminary No growth in 24 hours. 09/16/24 18:55 Blood - Blood Anaerobic Blood Culture - Preliminary No growth in 24 hours. Assessment/ Plan: Nephrology No dyspnea. MATA No chest pain Fatigue and weakness Poor urine output No acute events overnight Vitals, medications, blood work and imaging reviewed in the chart NAD. MMM. NCAT. Normal Respiratory Effort. S1S2. ND Abd. No C/C. Anasarca. No rash. Somnolent. Minimal speech. EXAMINATION: ONE VIEW CHEST XR CLINICAL INDICATION: COUGH TECHNIQUE: Frontal chest projection is submitted. Examination is limited by patient positioning and technique. COMPARISON: 07/14/2024 FINDINGS: Moderate bilateral pulmonary opacities suggest pulmonary edema. Moderate bilateral pleural effusions. The heart is enlarged. No displaced fractures identified. IMPRESSION: Moderate CHF/volume overload pattern suspected. LEFT VENTRICULAR WALL MOTION: NORMAL DOPPLER/COLOR FLOW: GRADE I DIASTOLIC DYSFUNCTION COMMENTS: 1. NORMAL LEFT VENTRICULAR SYSTOLIC FUNCTION, EJECTION FRACTION 55-60%, NORMAL WALL MOTION 2. GRADE II DIASTOLIC DYSFUNCTION 3. ELEVATED FILLING PRESSURE (RIGHT ATRIAL PRESSURE 15-20 mmHg) A/P Stage II BEVERLY likely oliguric ATN due to HTN/ Hypotension on admission complicated by CRS CKD III with Proteinuria -No NSAIDs -Continue diuresis -May need to consider dialysis if the renal fx continues to worsen HTN with CKD/ CHF -Reduce Coreg -Discontinue Hydralazine Diastolic CHF, A/C Pulmonary Edema/ Anasarca Acute Hypercarbic/ Hypoxic Respiratory Failure -Continue oxygen supplementation -Continue Lasix gtt -Continue Spironolactone -Metolazone X1 DM II with CKD -RISS Hypoalbuminemia -Continue IV Albumin Hospitalist note reviewed Patient care 40min
[2024-09-19] MEDS: NYSTATIN OINT 15 GM TUBE TOP SCH (21:02)
[2024-09-20] MEDS: FUROSEMIDE 40 MG/4 ML VIAL IV SCH ×2 (00:09→08:21)
[2024-09-20 05:33] LABS: ALT/SGPT 17.0 U/L (16-61); AST/SGOT 17.0 U/L (15-37); Albumin 2.8 g/dL (3.4-5.0); Albumin/Globulin Ratio 0.9 (1.1-1.8); Alkaline Phosphatase 129.0 U/L (45-117); Anion Gap 10.4 mEq/L (5.0-15.0); BUN Blood Urea Nitrogen 69.0 mg/dL (7-18); Globulin 3.2 g/dL (2.3-3.5); Glucose Level 150.0 mg/dL (74-106); Potassium 4.4 mEq/L (3.5-5.1); Uric Acid 8.3 mg/dL (3.5-7.2)
[2024-09-20 06:08] LABS: Magnesium 2.4 mg/dL (1.6-2.4)
[2024-09-20 07:03] LABS: Hepatitis B surface AG Interp. Nonreactive (Nonreactive)
[2024-09-20 07:04] LABS: HBsAG Nonreactive Report Report
[2024-09-20] MEDS: METOLAZONE 5 MG TABLET PO ONE ×2 (08:22→22:08)
--- NOTE | 2024-09-20 10:43 | P.PN ---
Subjective Date of Service: 09/20/24 Chief Complaint: Volume overload with AHRF 2/2 decompensated CHF exacerbation/BEVERLY. Subjective: New changes (patient still altered, urinr output is very low) Review of Systems 10-point ROS is otherwise unremarkable Physical Examination - Vital Signs Temperature: 98.0 F Blood Pressure: 139/74 Pulse: 59 Respirations: 17 Pulse Ox (%): 97 - Physical Exam General: Mild distress, Confused HEENT: Atraumatic, PERRLA, EOMI Neck: Supple, JVD not distended Respiratory: Clear to auscultation bilaterally, Normal air movement Cardiovascular: Regular rate/rhythm, Normal S1 S2 Gastrointestinal: Normal bowel sounds, No tenderness Musculoskeletal: No tenderness Integumentary: No rashes Neurological: Normal speech, Normal tone, Normal affect Lymphatics: No axilla or inguinal lymphadenopathy - Studies Medications List Reviewed: Yes Assessment And Plan - Current Problems (Diagnosis) (1) Acute on chronic diastolic heart failure Current Visit: No Status: Acute Plan: Patient was switched to lasix IV Bolus and Metolazone by Nephrology team, patient still with very low urine output, patient with raising BUN and Cr., I expect patient will need dialysis. coreg 12.5 bid continue aldactone 25 mg daily continue to monitor input and output and electrolytes patient echo recently shown normal EF, DD (2) Hypertension Current Visit: No Status: Acute Plan: continue above medications (3) Type II diabetes mellitus Current Visit: No Status: Acute Plan: add farxiga 10 mg daily
--- NOTE | 2024-09-20 11:52 | PREOPCON ---
Date of Consultation: 09/20/2024 Reason: The patient needs urgent dialysis. History Of Present Illness: The patient is a 53-year-old gentleman with multiple medical problems, w ho was admitted couple days ago with volume overload, CHF exacerbation, and acute kidney injury with chronic kidney injury and his symptomology has worsened as well as his laboratory data and I spoke in detail with Dr. Hanna about the patient's course in the hospital and he would like to start dialys is on this patient. The patient is awake, alert, oriented x2. There is no fever or chills. At this time, no other sources of infection. Review of Systems: Otherwise unremarkable. Past Medical History: Significant for hypertension, diabetes type 2, congestive heart failure. Past Surgical History: Neck cyst removal. Allergies: NO ALLERGIES. Social History: The patient currently does not smoke and drinks occasionally. Family History: Significant for colon cancer in the father. Diabetes, heart disease, and cerebral c ancer in the mother. Physical Examination: Vital Signs: Stable. Currently, he is afebrile. General: He is awake and alert. Head and Neck: No masses. Throat clear. Neck is supple. Chest: Clear. Heart: S1, S2. Abdomen: Soft. Extremities: Neurovascularly intact. Neuro: Nonfocal. Laboratory Data: White count is 10,000, platelets are 289. INR is 1.26. His BUN and creatinine are 69 and 4.27. Assessment: Acute renal failure on a patient with multiple medical problems and chronic kidney disea se. Recommendations: We will proceed with placement of a tunneled dialysis catheter. The patient unders tands risks, benefits, alternatives and agrees to procedure. /MODL Voice ID: [id number] Report ID: [id number]
[2024-09-20] MEDS: CEFAZOLIN SODIUM 2 GM/VIAL ONE (13:09)
[2024-09-20] MEDS: NA CHLORIDE 0.9% 500 ML ONE ×2 (13:34→16:23)
--- NOTE | 2024-09-20 13:57 | P.PN ---
Subjective Date of Service: 09/20/24 Chief Complaint: Volume overload with AHRF 2/2 decompensated CHF exacerbation/BEVERLY. No improvement in anasarca. Good oxygen saturation on 3 L oxygen by nasal cannula. No issues overnight. Physical Examination - Vital Signs Temperature: 97.7 F Blood Pressure: 127/61 Pulse: 64 Respirations: 20 Pulse Ox (%): 97 - Studies Medications List Reviewed: Yes Assessment And Plan - Plan Physical Exam: GEN: Alert, oriented, NAD CV: Regular rate and rhythm, 3+ bilateral lower extremity edema, anasarca Pulm: cleart to auscultation ABD: soft, nontender, nondistended Neuro: normal affect Mcintyre placed in ED Problem List: Acute on chronic diastolic CHF exacerbation (55-60%EF - June 2024) Anasarca secondary to medication noncompliance Acute hypoxic respiratory failure secondary to the above Hypertensive emergency, resolved BEVERLY on CKD NIDDM2 Hyperlipidemia Hx of CVA (Left MCA territory 10/2022) Hx of Vitamin B12 deficiency Acute on chronic diastolic CHF exacerbation (55-60%EF - June 2024) Anasarca secondary to medication noncompliance Acute hypoxic respiratory failure secondary to the above on admission, presents with worsening shortness of breath, significant lower extremity edema, anasarca, orthopnea History of medication noncompliance due to insurance/cost. Ran out of meds a few weeks ago and was unable to afford refills. Refused CT in the ED due to unable to lay flat. Most recent echo (07/06/24): 55-60% EF, grade 2 diastolic dysfunction, elevated filling pressure CXR (09/16): Moderate CHF/volume overload. Continue Lasix/Albumin drip Continue Spironolactone 25mg daily. Nephrology is planning hemodialysis. General surgery consult for dialysis access. Wean oxygen as tolerated. Cardiology is following. Hypertensive emergency, resolved BP 245/121 on arrival. Blood pressure improved and now stable. continue home coreg, hydralazine, marcos UTI Urine culture showed no growth Continue IV Rocephin for now BEVERLY on CKD Monitor renal function. Monitor and replete electrolytes as needed. Nephrology Dr. Hanna suspect ATN superimposed on chronic kidney disease from diabetic nephropathy. On Lasix/albumin drip Mcintyre in place. Nephrology planning hemodialysis NIDDM2 accu-cheks, SSI Hyperlipidemia Hx of CVA (Left MCA territory 10/2022) Hx of Vitamin B12 deficiency Continue home medications. VTE: heparin sq Code: Full Dispo: Continue ICU level of care
[2024-09-20 14:14] LABS: Hepatitis B Surface Ab - Quant 3.28 mIU/mL (<8.0)
[2024-09-20] MEDS: NS 0.9% VIAL 10 ML ONE (14:21)
[2024-09-20] MEDS: NA CHLORIDE 0.9% 100 ML ONE (14:22)
[2024-09-20] MEDS ORDERED: ROCURONIUM 50 MG/5 ML VIAL IV ONE (14:40)
[2024-09-20] MEDS ORDERED: LIDOCAINE 1% MPF 5 ML VIAL ONE (14:40)
[2024-09-20] MEDS ORDERED: FENTANYL CITR 100 MCG/2 ML ONE (14:40)
[2024-09-20] MEDS: BUPIVACAINE 0.5% PF 10 ML VIAL ONE (16:01)
[2024-09-20] MEDS: HEPARIN 5000 UNIT/ML 1 ML VIAL ONE (16:02)
[2024-09-20] MEDS ORDERED: Mastisol Adhesive Liq ONE (16:06)
[2024-09-20] MEDS ORDERED: NEOSTIGMINE 1 MG/ML -10 ML VIAL ONE (16:08)
[2024-09-20] MEDS ORDERED: GLYCOPYRROLATE 0.2 MG/ML SYR ONE (16:08)
[2024-09-20] MEDS ORDERED: EPHEDRINE SULF 50 MG/ML VIAL ONE (16:24)
[2024-09-20] MEDS: SUGAMMADEX SODIUM 200 MG/2 ML VIAL IV ONE (16:28)
--- NOTE | 2024-09-20 16:34 | P.OP ---
Date of Service: 09/20/24 Preop diagnosis: Acute renal failure, CHF Postop diagnosis: Same Procedure performed: Placement of right IJ tunneled dialysis catheter with utilization of Doppler and fluoroscopy Surgeon: Ambrosio Engel MD Cabinetmaker Maintenance: Mikala CHOW Estimated blood loss: Minimal Specimen: None Findings: Normal anatomy Anesthesia: General Complications: None Drains: None Fluids and blood products: Nonapplicable Disposition: Recovery room Operative note: Patient brought to the OR and placed in supine position. General anesthesia began. Patient prepped and draped in usual sterile fashion. Marcaine 0.5% infiltrated locally. Doppler device used to isolate the right internal jugular vein. 18-gauge needle used to access the right internal jugular vein and guidewire passed. Position confirmed with fluoroscopy. Counterincision made on the right anterior chest. Tunneling device used to tunnel the catheter between the 2 wounds. Seldinger technique used. Tip of the catheter placed in the SVC under fluoroscopy. Catheter flushed with heparin and packed with heparin with good blood flow. 3-0 chromic used to approximate subcutaneous tissue. 3-0 nylon used to secure the catheter to the chest wall. Sterile dressing applied. Patient awakened taken to recovery room in fair condition. Chest x-ray has been ordered. CC:
--- NOTE | 2024-09-20 16:52 | RAD REPORT ---
EXAM: Chest Single View HISTORY: 53 years Male S/P tunneled dialysis catheter, rule out TB COMPARISON: 09/16/2024 FINDINGS: LUNGS/PLEURA: Bilateral pleural effusions and pulmonary edema. Improved lung volumes. CARDIAC/MEDIASTINUM: Mild cardiomegaly UPPER ABDOMEN: No significant abnormality. BONES: No acute abnormality. LINES/TUBES/OTHER: Endotracheal tube at the clavicular heads. Right IJ approach Vas-Cath catheter wit h tip overlying the SVC. IMPRESSION: Dialysis catheter tip in the distal SVC in satisfactory position. No radiographic evidence of TB. Pulmonary edema with bilateral pleural effusions. No pneumothorax.
--- NOTE | 2024-09-20 17:38 | RAD REPORT ---
EXAM: Fluoroscopy use, Fluoroscopy <1 Hour HISTORY: HD Cath COMPARISON: None FINDINGS: A total of 4 images were sent to PACS, during a fluoroscopically guided dialysis catheter p lacement. No radiologist was involved in protocoling or performance of the study, and no radiologist was present for the duration of the procedure. No interpretation of the saved images will be provided. Total fluoroscopy time: 0.1 minutes Cumulative dose: 5.72 mGy. IMPRESSION: Documentation of fluoroscopy use as above.
--- NOTE | 2024-09-20 20:41 | P.PN ---
Date of Service: 09/20/24 Vital Signs Temp Pulse Resp BP Pulse Ox 97.6 F 65 26 H 172/85 H 95 09/20/24 19:00 09/20/24 20:00 09/20/24 20:00 09/20/24 20:00 09/20/24 20:00 Medications Albuterol Sulfate (Albuterol 2.5 Mg/3 Ml Neb Carlene) 2.5 mg NEB [id number] PRN PRN Reason: SHORTNESS OF BREATH Last Admin: 09/18/24 14:13 Dose: 2.5 mg Aspirin (Aspirin Ec 81 Mg Tab) 81 mg PO DAILY [facility] Last Admin: 09/20/24 08:22 Dose: 81 mg Carvedilol (Carvedilol 25 Mg Tab) 12.5 mg PO BID 6AM 6PM [facility] Last Admin: 09/20/24 17:38 Dose: Not Given Furosemide (Furosemide 40 Mg/4 Ml Vial) 80 mg IV Q6H [facility] Last Admin: 09/20/24 17:44 Dose: 80 mg Heparin Sodium (Porcine) (Heparin 5000 Unit/Ml 1 Ml Vial) 5,000 unit SQ Q8HR [facility] Last Admin: 09/20/24 17:00 Dose: Not Given Heparin Sodium (Porcine) (Heparin 1,000 Unit/Ml Vial) 6,000 unit IV EVERY HD PRN PRN Reason: FOR DIALYSIS CATHETER CARE Ceftriaxone Sodium 1,000 mg/ (Sodium Chloride) 50 mls @ 100 mls/hr IVPB DAILY [facility]; Protocol Last Admin: 09/20/24 08:22 Dose: 50 mls Insulin Human Regular (Insulin Regular (Human) 100 Unit/Ml) 0 unit SQ ACHS [facility]; Protocol Last Admin: 09/20/24 16:30 Dose: Not Given Ipratropium [place] (Ipratropium Brom 0.5mg/2.5ml) 0.5 mg NEB [id number] PRN PRN Reason: SHORTNESS OF BREATH Last Admin: 09/18/24 14:13 Dose: 0.5 mg Mupirocin (Mupirocin Nasal 2 Appl/1 Gm Tube) 1 appl CLAUDE BID [facility] Stop: 09/25/24 09:01 Nystatin (Nystatin Oint 15 Gm Tube) 1 appl TOP BID [facility] Last Admin: 09/20/24 08:22 Dose: 1 appl Ondansetron HCl (Ondansetron 4 Mg/2 Ml Vial) 4 mg IV Q6HP PRN PRN Reason: NAUSEA / VOMITING Last Admin: 09/17/24 19:32 Dose: 4 mg Spironolactone (Spironolactone 25 Mg Tablet) 25 mg PO DAILY [facility] Last Admin: 09/20/24 08:22 Dose: 25 mg Microbiology Results 09/16/24 18:35 Blood - Blood Aerobic Blood Culture - Preliminary No growth in 24 hours. 09/16/24 18:35 Blood - Blood Anaerobic Blood Culture - Preliminary No growth in 24 hours. 09/16/24 18:55 Blood - Blood Aerobic Blood Culture - Preliminary No growth in 24 hours. 09/16/24 18:55 Blood - Blood Anaerobic Blood Culture - Preliminary No growth in 24 hours. Assessment/ Plan: Nephrology No dyspnea. MATA No chest pain Fatigue and weakness Poor urine output No acute events overnight The patient did agree to dialysis today if necessary to improve his condition Vitals, medications, blood work and imaging reviewed in the chart NAD. MMM. NCAT. Normal Respiratory Effort. S1S2. ND Abd. No C/C. Anasarca. No rash. Somnolent. Minimal speech. EXAMINATION: ONE VIEW CHEST XR CLINICAL INDICATION: COUGH TECHNIQUE: Frontal chest projection is submitted. Examination is limited by patient positioning and technique. COMPARISON: 07/14/2024 FINDINGS: Moderate bilateral pulmonary opacities suggest pulmonary edema. Moderate bilateral pleural effusions. The heart is enlarged. No displaced fractures iden tified. IMPRESSION: Moderate CHF/volume overload pattern suspected. LEFT VENTRICULAR WALL MOTION: NORMAL DOPPLER/COLOR FLOW: GRADE I DIASTOLIC DYSFUNCTION COMMENTS: 1. NORMAL LEFT VENTRICULAR SYSTOLIC FUNCTION, EJECTION FRACTION 55-60%, NORMAL WALL MOTION 2. GRADE II DIASTOLIC DYSFUNCTION 3. ELEVATED FILLING PRESSURE (RIGHT ATRIAL PRESSURE 15-20 mmHg) A/P Stage II BEVERLY likely oliguric ATN due to HTN/ Hypotension on admission complicated by CRS CKD III with Proteinuria -No NSAIDs -Continue diuresis -Surgery consult today for HD CVC placement -PUF ordered for today to improve volume status HTN with CKD/ CHF -Continue Coreg Diastolic CHF, A/C Pulmonary Edema/ Anasarca Acute Hypercarbic/ Hypoxic Respiratory Failure -Continue oxygen supplementation -Lasix 80mg q6h -Continue Spironolactone -Metolazone X1 DM II with CKD -RISS Hypoalbuminemia -Continue IV Albumin CKD MBD Secondary HyperParathyroidism HypoCalcemia/ HyperPO4 -Start Ergo Hospitalist note reviewed Case reviewed with Dr. Esposito and Dr. Engel Patient care 40min
[2024-09-20] MEDS: Mupirocin NASAL 2 APPL/1 GM TUBE NAS SCH (22:07)
[2024-09-20] MEDS: DOCUSATE NA 100 MG CAP PO SCH (22:08)
[2024-09-21 06:05] LABS: Absolute Lymphocytes (CBC) 1.1 K/uL (0.7-4.9); Hematocrit 39.6 % (39.6-49.0); Hemoglobin 13.2 g/dL (13.6-17.9); MCH 30.2 pg (27.0-35.0); MCHC 33.4 g/dL (32.0-36.0); MCV 90.6 fL (80-100); MPV 9.1 fL (7.6-11.3); Nucleated RBC Absolute Count 0.0 (0-0); Nucleated Red Blood Cells % 0.0 % (0-0); RBC Red Blood Cell Count 4.38 M/uL (4.33-5.43); White Blood Count 9.50 thou/uL (4.3-10.9)
--- NOTE | 2024-09-21 08:31 | P.PN ---
Date of Service: 09/21/24 Vital Signs Temp Pulse Resp BP Pulse Ox 97.1 F 70 13 174/78 H 96 09/21/24 03:00 09/21/24 06:00 09/21/24 06:00 09/21/24 06:00 09/21/24 06:00 Medications Albuterol Sulfate (Albuterol 2.5 Mg/3 Ml Neb Carlene) 2.5 mg NEB [id number] PRN PRN Reason: SHORTNESS OF BREATH Last Admin: 09/18/24 14:13 Dose: 2.5 mg Aspirin (Aspirin Ec 81 Mg Tab) 81 mg PO DAILY [facility] Last Admin: 09/20/24 08:22 Dose: 81 mg Carvedilol (Carvedilol 25 Mg Tab) 12.5 mg PO BID 6AM 6PM [facility] Last Admin: 09/21/24 05:28 Dose: 12.5 mg Docusate Sodium (Docusate Na 100 Mg Cap) 100 mg PO BID [facility] Last Admin: 09/20/24 22:08 Dose: 100 mg Ergocalciferol (Drisdol (Vitamin D=Ergocalciferol) 47351 Unit Cap) 50,000 unit PO Q7D@0900 [facility] Furosemide (Furosemide 40 Mg/4 Ml Vial) 80 mg IV Q6H [facility] Last Admin: 09/21/24 01:08 Dose: 80 mg Heparin Sodium (Porcine) (Heparin 5000 Unit/Ml 1 Ml Vial) 5,000 unit SQ Q8HR [facility] Last Admin: 09/21/24 01:08 Dose: 5,000 unit Heparin Sodium (Porcine) (Heparin 1,000 Unit/Ml Vial) 6,000 unit IV EVERY HD PRN PRN Reason: FOR DIALYSIS CATHETER CARE Last Admin: 09/20/24 22:04 Dose: 6,000 unit Ceftriaxone Sodium 1,000 mg/ (Sodium Chloride) 50 mls @ 100 mls/hr IVPB DAILY [facility]; Protocol Last Admin: 09/20/24 08:22 Dose: 50 mls Insulin Human Regular (Insulin Regular (Human) 100 Unit/Ml) 0 unit SQ ACHS [facility]; Protocol Last Admin: 09/20/24 22:07 Dose: 3 unit Ipratropium [place] (Ipratropium Brom 0.5mg/2.5ml) 0.5 mg NEB [id number] PRN PRN Reason: SHORTNESS OF BREATH Last Admin: 09/18/24 14:13 Dose: 0.5 mg Mupirocin (Mupirocin Nasal 2 Appl/1 Gm Tube) 1 appl CLAUDE BID [facility] Stop: 09/25/24 09:01 Last Admin: 09/20/24 22:07 Dose: 1 appl Nystatin (Nystatin Oint 15 Gm Tube) 1 appl TOP BID [facility] Last Admin: 09/20/24 22:09 Dose: 1 appl Ondansetron HCl (Ondansetron 4 Mg/2 Ml Vial) 4 mg IV Q6HP PRN PRN Reason: NAUSEA / VOMITING Last Admin: 09/17/24 19:32 Dose: 4 mg Spironolactone (Spironolactone 25 Mg Tablet) 25 mg PO DAILY [facility] Last Admin: 09/20/24 08:22 Dose: 25 mg Microbiology Results 09/16/24 18:35 Blood - Blood Aerobic Blood Culture - Preliminary No growth in 24 hours. 09/16/24 18:35 Blood - Blood Anaerobic Blood Culture - Preliminary No growth in 24 hours. 09/16/24 18:55 Blood - Blood Aerobic Blood Culture - Preliminary No growth in 24 hours. 09/16/24 18:55 Blood - Blood Anaerobic Blood Culture - Preliminary No growth in 24 hours. Assessment/ Plan: Nephrology No dyspnea. MATA No chest pain Fatigue and weakness Poor urine output No acute events overnight Vitals, medications, blood work and imaging reviewed in the chart NAD. MMM. NCAT. Normal Respiratory Effort. S1S2. ND Abd. No C/C. Anasarca. No rash. Somnolent. Minimal speech. EXAMINATION: ONE VIEW CHEST XR CLINICAL INDICATION: COUGH TECHNIQUE: Frontal chest projection is submitted. Examination is limited by patient positioning and technique. COMPARISON: 07/14/2024 FINDINGS: Moderate bilateral pulmonary opacities suggest pulmonary edema. Moderate bilateral pleural effusions. The heart is enlarged. No displaced fractures identified. IMPRESSION: Moderate CHF/volume overload pattern suspected. LEFT VENTRICULAR WALL MOTION: NORMAL DOPPLER/COLOR FLOW: GRADE I DIASTOLIC DYSFUNCTION COMMENTS: 1. NORMAL LEFT VENTRICULAR SYSTOLIC FUNCTION, EJECTION FRACTION 55-60%, NORMAL WALL MOTION 2. GRADE II DIASTOLIC DYSFUNCTION 3. ELEVATED FILLING PRESSURE (RIGHT ATRIAL PRESSURE 15-20 mmHg) A/P Stage III BEVERLY likely oliguric ATN due to HTN/ Hypotension on admission complicated by CRS CKD III with Proteinuria -No NSAIDs -Continue diuresis -Surgery consult today for HD CVC placement -Acute HD + PUF ordered for today HTN with CKD/ CHF -Continue Coreg Diastolic CHF, A/C Pulmonary Edema/ Anasarca Acute Hypercarbic/ Hypoxic Respiratory Failure -Continue oxygen supplementation -Lasix 80mg q6h -Continue Spironolactone -Metolazone X1 DM II with CKD -RISS Hypoalbuminemia -IV Albumin prn CKD MBD Secondary HyperParathyroidism HypoCalcemia/ HyperPO4 -Continue Ergo Hospitalist note reviewed Case reviewed with Dr. Esposito Patient care 40min
[2024-09-21] MEDS: DRISDOL (VITAMIN D=ERGOCALCIFEROL) 50000 UNIT CAP PO SCH (08:38)
[2024-09-21 08:44] LABS: Anion Gap 10.8 mEq/L (5.0-15.0); BUN Blood Urea Nitrogen 76.0 mg/dL (7-18); Glucose Level 123.0 mg/dL (74-106); Potassium 4.8 mEq/L (3.5-5.1)
[2024-09-21] MEDS: METOLAZONE 5 MG TABLET PO ONE (09:29)
--- NOTE | 2024-09-21 12:35 | P.PN ---
Subjective Date of Service: 09/21/24 Chief Complaint: Volume overload with AHRF 2/2 decompensated CHF exacerbation/BEVERLY. No improvement in anasarca compared to yesterday. Patient appeared confused. Physical Examination - Vital Signs Temperature: 97.6 F Blood Pressure: 172/71 Pulse: 71 Respirations: 18 Pulse Ox (%): 95 - Studies Medications List Reviewed: Yes Assessment And Plan - Plan Physical Exam: GEN: Alert, oriented, NAD CV: Regular rate and rhythm, 3+ bilateral lower extremity edema, anasarca Pulm: cleart to auscultation ABD: soft, nontender, nondistended Neuro: normal affect Mcintyre catheter in place. Problem List: Acute on chronic diastolic CHF exacerbation (55-60%EF - June 2024) Anasarca secondary to medication noncompliance Acute hypoxic respiratory failure secondary to the above Hypertensive emergency, resolved BEVERLY on CKD NIDDM2 Hyperlipidemia Hx of CVA (Left MCA territory 10/2022) Hx of Vitamin B12 deficiency Acute on chronic diastolic CHF exacerbation (55-60%EF - June 2024) Anasarca secondary to medication noncompliance Acute hypoxic respiratory failure secondary to the above on admission, presents with worsening shortness of breath, significant lower extremity edema, anasarca, orthopnea History of medication noncompliance due to insurance/cost. Ran out of meds a few weeks ago and was unable to afford refills. Refused CT in the ED due to unable to lay flat. Most recent echo (07/06/24): 55-60% EF, grade 2 diastolic dysfunction, elevated filling pressure CXR (09/16): Moderate CHF/volume overload. Continue Lasix/Albumin drip Continue Spironolactone 25mg daily. Nephrology is planning hemodialysis. General surgery consult for dialysis access. Wean oxygen as tolerated. Cardiology is following. Hypertensive emergency, resolved BP 245/121 on arrival. Blood pressure improved and now stable. continue home coreg, hydralazine, marcos UTI Urine culture showed no growth Continue IV Rocephin for now BEVERLY on CKD Monitor renal function. Monitor and replete electrolytes as needed. Nephrology Dr. Hanna suspect ATN superimposed on chronic kidney disease from diabetic nephropathy. On Lasix/albumin drip Mcintyre in place. Nephrology planning hemodialysis NIDDM2 accu-cheks, SSI Hyperlipidemia Hx of CVA (Left MCA territory 10/2022) Hx of Vitamin B12 deficiency Continue home medications. 09/21 No major changes from yesterday No improvement in anasarca Dialysis catheter placed yesterday by Dr. Maren BURRELL likely related to uremia Patient plan for hemodialysis today. Lasix drip changed to IV Lasix 80 mg every 6 Monitor urine output Monitor renal function. Continue and titrate medications for hypertension VTE: heparin sq Code: Full Dispo: Continue ICU level of care
--- NOTE | 2024-09-21 12:41 | P.PN ---
Subjective Date of Service: 09/21/24 Chief Complaint: Volume overload with AHRF 2/2 decompensated CHF exacerbation/BEVERLY. Subjective: No new changes Review of Systems 10-point ROS is otherwise unremarkable Physical Examination - Vital Signs Temperature: 97.6 F Blood Pressure: 172/71 Pulse: 71 Respirations: 18 Pulse Ox (%): 95 - Physical Exam General: Alert, In no apparent distress HEENT: Atraumatic, PERRLA, EOMI Neck: Supple, JVD not distended Respiratory: Clear to auscultation bilaterally, Normal air movement Cardiovascular: Regular rate/rhythm, Normal S1 S2 Gastrointestinal: Normal bowel sounds, No tenderness Musculoskeletal: No tenderness Integumentary: No rashes Neurological: Normal speech, Normal tone, Normal affect Lymphatics: No axilla or inguinal lymphadenopathy - Studies Medications List Reviewed: Yes Assessment And Plan - Current Problems (Diagnosis) (1) Acute on chronic diastolic heart failure Current Visit: No Status: Acute Plan: Patient was switched to lasix IV Bolus and Metolazone by Nephrology team, patient still with very low urine output, patient with raising BUN and Cr., dialysis is planned but nephrology team. coreg 12.5 bid continue aldactone 25 mg daily continue to monitor input and output and electrolytes patient echo recently shown normal EF, DD (2) Hypertension Current Visit: No Status: Acute Plan: continue above medications (3) Type II diabetes mellitus Current Visit: No Status: Acute Plan: add Jardiance 10 mg daily
[2024-09-21] MEDS: HYDRALAZINE HCL 25 MG TABLET PO SCH (17:09)
[2024-09-22 05:19] LABS: Absolute Lymphocytes (CBC) 1.7 K/uL (0.7-4.9); Hematocrit 38.7 % (39.6-49.0); Hemoglobin 12.8 g/dL (13.6-17.9); MCH 29.9 pg (27.0-35.0); MCHC 33.0 g/dL (32.0-36.0); MCV 90.6 fL (80-100); MPV 9.2 fL (7.6-11.3); Nucleated RBC Absolute Count 0.0 (0-0); Nucleated Red Blood Cells % 0.1 % (0-0); RBC Red Blood Cell Count 4.27 M/uL (4.33-5.43); White Blood Count 8.40 thou/uL (4.3-10.9)
[2024-09-22 05:37] LABS: Anion Gap 10.1 mEq/L (5.0-15.0); BUN Blood Urea Nitrogen 70.0 mg/dL (7-18); Glucose Level 116.0 mg/dL (74-106); Potassium 4.1 mEq/L (3.5-5.1)
[2024-09-22 06:10] LABS: Magnesium 2.3 mg/dL (1.6-2.4)
--- NOTE | 2024-09-22 11:38 | P.PN ---
Nephrology note (S) Pt remains in the ICU, HD initiated earlier in the week for clearance and UF. UOP appears to have picked up some on IV lasix. Pt seen off BIPAP, generalized edema persists, BP mod elevated, no acute complaints General: Other (Appears chronically ill, lethargic) HEENT: Atraumatic, Normocephalic, Other (LFNC) Neck: Supple Respiratory: Other (poor resp effort, non tachypnec, reduced BS at bases) Cardiovascular: Other (Non tachy, distant heart sounds) Gastrointestinal: Other (Obese, mod disention, SC edema, NT, scotal edema), rees present Musculoskeletal: Other (Tight pitting and non pitting edema to the dependent areas) Integumentary: No rashes Neurological: Other (Awakens easily, responds slowly, briefly) Laboratory Data (last 24 hrs) Reviewed in the EMR Conclusions/Impression: A/P) 1. Sub-acute Stage III renal failure (multifactorial) on underlying CKD Stage III with concern for sub-acute nephrotic syndrome possibly 2nd to diabetic nephropathy with A1c > 10% a few years ago +/- other, prior renal imaging w/u and limited serologic w/u thus far has been negative per review of Dr. Hanna's office visit note, request note/records for full details. HD initiated by Dr. Hanna earlier in the week, TDC placed, oliguria resolved, now diuresing on IV lasix. Repeat HD ordered for clearance and UF. After HD today, will hold HD this weekend and trend Cr levels for any signs of downward trend 2. Fluid overload. Generalized edema. Acute pulmonary edema. Acute hypercarbic, hypoxic resp failure. Elevated BNP levels. Cont to mobilize intravascular and 3rd space fluid with UF and diuretics 3. Proteinuria, unspecified. Ordered 24h urine protein evaluation but not done. Marked abnormality of albumin noted 4. Hypertensive urgency on admission, BP remains mod elevated, f/u post HD BP 5. Heart failure unspecified, TTE/w/u per IM/Cardiology team. Juan Fong MD, MIKKI
[2024-09-22] MEDS: FUROSEMIDE 40 MG/4 ML VIAL IV SCH (11:42)
--- NOTE | 2024-09-22 13:18 | P.PN ---
Subjective Date of Service: 09/22/24 Chief Complaint: Volume overload with AHRF 2/2 decompensated CHF exacerbation/BEVERLY. Improvement in generalized body swelling noted after hemodialysis yesterday Patient remained confused. Physical Examination - Vital Signs Temperature: 98 F Blood Pressure: 160/60 Pulse: 71 Respirations: 14 Pulse Ox (%): 98 - Studies Microbiology Data (last 24 hrs): 09/16/24 18:35 Blood - Blood Aerobic Blood Culture - Final No growth in 5 days. 09/16/24 18:35 Blood - Blood Anaerobic Blood Culture - Final No growth in 5 days. 09/16/24 18:55 Blood - Blood Aerobic Blood Culture - Final No growth in 5 days. 09/16/24 18:55 Blood - Blood Anaerobic Blood Culture - Final No growth in 5 days. Medications List Reviewed: Yes Assessment And Plan - Plan Physical Exam: GEN: Alert, oriented, NAD CV: Regular rate and rhythm, 3+ bilateral lower extremity edema, anasarca Pulm: cleart to auscultation ABD: soft, nontender, nondistended Neuro: normal affect Mcintyre catheter in place. Problem List: Acute on chronic diastolic CHF exacerbation (55-60%EF - June 2024) Anasarca secondary to medication noncompliance Acute hypoxic respiratory failure secondary to the above Hypertensive emergency, resolved BEVERLY on CKD NIDDM2 Hyperlipidemia Hx of CVA (Left MCA territory 10/2022) Hx of Vitamin B12 deficiency Acute on chronic diastolic CHF exacerbation (55-60%EF - June 2024) Anasarca secondary to medication noncompliance Acute hypoxic respiratory failure secondary to the above on admission, presents with worsening shortness of breath, significant lower extremity edema, anasarca, orthopnea History of medication noncompliance due to insurance/cost. Ran out of meds a few weeks ago and was unable to afford refills. Refused CT in the ED due to unable to lay flat. Most recent echo (07/06/24): 55-60% EF, grade 2 diastolic dysfunction, elevated filling pressure CXR (09/16): Moderate CHF/volume overload. Continue Lasix/Albumin drip Continue Spironolactone 25mg daily. Nephrology is planning hemodialysis. General surgery consult for dialysis access. Wean oxygen as tolerated. Cardiology is following. Hypertensive emergency, resolved BP 245/121 on arrival. Blood pressure improved and now stable. continue home coreg, hydralazine, marcos UTI Urine culture showed no growth Continue IV Rocephin for now BEVERLY on CKD Monitor renal function. Monitor and replete electrolytes as needed. Nephrology Dr. Hanna suspect ATN superimposed on chronic kidney disease from diabetic nephropathy. On Lasix/albumin drip Mcintyre in place. Nephrology planning hemodialysis NIDDM2 accu-cheks, SSI Hyperlipidemia Hx of CVA (Left MCA territory 10/2022) Hx of Vitamin B12 deficiency Continue home medications. 09/21 No major changes from yesterday No improvement in anasarca Dialysis catheter placed yesterday by Dr. Maren BURRELL likely related to uremia Patient plan for hemodialysis today. Lasix drip changed to IV Lasix 80 mg every 6 Monitor urine output Monitor renal function. Continue and titrate medications for hypertension 09/22 Anasarca slowly improving with hemodialysis Nephrology is following and managing anasarca with hemodialysis. Further hemodialysis per nephrology. Urine output significantly improved. Continue IV Lasix. Monitor renal function. Titrate antihypertensives. VTE: heparin sq Code: Full Dispo: Continue ICU level of care
--- NOTE | 2024-09-22 14:45 | P.PN ---
Subjective Date of Service: 09/22/24 Chief Complaint: Volume overload with AHRF 2/2 decompensated CHF exacerbation/BEVERLY. Subjective: New changes (Patient was started on dialysis and tolerating well.) Review of Systems 10-point ROS is otherwise unremarkable Physical Examination - Vital Signs Temperature: 98 F Blood Pressure: 187/69 Pulse: 67 Respirations: 18 Pulse Ox (%): 96 - Physical Exam General: Alert, In no apparent distress HEENT: Atraumatic, PERRLA, EOMI Neck: Supple, JVD not distended Respiratory: Clear to auscultation bilaterally, Normal air movement Cardiovascular: Regular rate/rhythm, Normal S1 S2 Gastrointestinal: Normal bowel sounds, No tenderness Musculoskeletal: No tenderness Integumentary: No rashes Neurological: Normal speech, Normal tone, Normal affect Lymphatics: No axilla or inguinal lymphadenopathy - Studies Microbiology Data (last 24 hrs): 09/16/24 18:35 Blood - Blood Aerobic Blood Culture - Final No growth in 5 days. 09/16/24 18:35 Blood - Blood Anaerobic Blood Culture - Final No growth in 5 days. 09/16/24 18:55 Blood - Blood Aerobic Blood Culture - Final No growth in 5 days. 09/16/24 18:55 Blood - Blood Anaerobic Blood Culture - Final No growth in 5 days. Medications List Reviewed: Yes Assessment And Plan - Current Problems (Diagnosis) (1) Acute on chronic diastolic heart failure Current Visit: No Status: Acute Plan: Patient was switched to lasix IV Bolus and Metolazone by Nephrology team, patient still with very low urine output, patient with raising BUN and Cr., already started on dialysis coreg 12.5 bid continue aldactone 25 mg daily continue to monitor input and output and electrolytes patient echo recently shown normal EF, DD Cardiology will sign off, please call with any questions. (2) Hypertension Current Visit: No Status: Acute Plan: continue above medications may titrate Hydralzine and coreg up if needed. (3) Type II diabetes mellitus Current Visit: No Status: Acute Plan: add Jardiance 10 mg daily at discharge.
[2024-09-23 05:28] LABS: Absolute Lymphocytes (CBC) 1.8 K/uL (0.7-4.9); Hematocrit 38.2 % (39.6-49.0); Hemoglobin 12.7 g/dL (13.6-17.9); MCH 29.9 pg (27.0-35.0); MCHC 33.1 g/dL (32.0-36.0); MCV 90.2 fL (80-100); MPV 9.1 fL (7.6-11.3); Nucleated RBC Absolute Count 0.0 (0-0); Nucleated Red Blood Cells % 0.1 % (0-0); RBC Red Blood Cell Count 4.23 M/uL (4.33-5.43); White Blood Count 9.20 thou/uL (4.3-10.9)
[2024-09-23 06:04] LABS: Albumin 2.3 g/dL (3.4-5.0); Anion Gap 8.8 mEq/L (5.0-15.0); BUN Blood Urea Nitrogen 57.0 mg/dL (7-18); Glucose Level 134.0 mg/dL (74-106); Magnesium 2.1 mg/dL (1.6-2.4); Potassium 3.8 mEq/L (3.5-5.1)
--- NOTE | 2024-09-23 13:03 | PN ---
Date of Progress Note: 09/23/2024 Subjective: The patient was seen and examined at bedside. He is doing okay. He is more alert and a wake according to the nursing staff. Physical Examination: Vital Signs: Showing temperature of 98, pulse rate of 70, respiratory rate of 22, and blood pressure 151/62. He is saturating 97% on 4 L of nasal cannula oxygen. General: He has generalized anasarca. HEENT: Atraumatic head. Lungs: Auscultation of lungs revealed diminished breath sounds at bases. Heart: Auscultation of the heart revealed regular rate and rhythm. Abdomen: Obese, nontender. Extremities: With 3+ anasarca noted all the way up to the lower abdomen. Laboratory Data: At this time showing creatinine of 3.34, BUN of 57. Other electrolytes are stable. CBC showing stable hemoglobin, hematocrit, and platelet count. Current Medications: Include aspirin, carvedilol 12.5 mg b.i.d., Lasix 80 mg every 8 hours, hydralaz ine 50 mg 3 times a day, spironolactone 25 mg a day. Impression: 1. Acute on chronic renal insufficiency with severe volume overload. The patient required dialysis t o improve his volume status. He had 3 dialysis sessions in a row with improvement in his volume stat us; however, he continues to have significant volume overload. At this time since he is nonoliguric, we will continue with Lasix 80 mg every 8 hours and monitor his urine output and volume status close ly and decide on further dialysis. He does have a right-sided tunneled dialysis catheter in place an d we will monitor closely. 2. Urinary tract infection, possibly. The patient showed no evidence of growth in his urine cultures . 3. Acute on chronic diastolic heart failure with hypoxia, hypoxic respiratory failure. The patient i s being followed by Cardiology and the patient is also on goal-directed medical therapy. We will con tinue the same and further evaluate need for dialysis to maintain his volume status. Plan: Overall, the patient is clinically stable. No plans for dialysis today. We will continue to evaluate dialysis needs on a daily basis and determine further need. Continue all other medications and plan of care. VV/MODL Voice ID: [id number] Report ID: [id number]
--- NOTE | 2024-09-23 13:18 | P.PN ---
Subjective Date of Service: 09/23/24 Chief Complaint: Volume overload with AHRF 2/2 decompensated CHF exacerbation/BEVERLY. Patient's anasarca is improving. He is diuresing well, about 6500 mL output over the past 24 hours. Patient is interacting more meaningfully. Physical Examination - Vital Signs Temperature: 98.0 F Blood Pressure: 151/62 Pulse: 70 Respirations: 22 Pulse Ox (%): 98 - Studies Medications List Reviewed: Yes Assessment And Plan - Plan Physical Exam: GEN: Alert, oriented, NAD CV: Regular rate and rhythm, 3+ bilateral lower extremity edema, anasarca Pulm: cleart to auscultation ABD: soft, nontender, nondistended Neuro: normal affect Mcintyre catheter in place. Problem List: Acute on chronic diastolic CHF exacerbation (55-60%EF - June 2024) Anasarca secondary to medication noncompliance Acute hypoxic respiratory failure secondary to the above Hypertensive emergency, resolved BEVERLY on CKD NIDDM2 Hyperlipidemia Hx of CVA (Left MCA territory 10/2022) Hx of Vitamin B12 deficiency Acute on chronic diastolic CHF exacerbation (55-60%EF - June 2024) Anasarca secondary to medication noncompliance Acute hypoxic respiratory failure secondary to the above on admission, presents with worsening shortness of breath, significant lower extremity edema, anasarca, orthopnea History of medication noncompliance due to insurance/cost. Ran out of meds a few weeks ago and was unable to afford refills. Refused CT in the ED due to unable to lay flat. Most recent echo (07/06/24): 55-60% EF, grade 2 diastolic dysfunction, elevated filling pressure CXR (09/16): Moderate CHF/volume overload. Continue Lasix/Albumin drip Continue Spironolactone 25mg daily. Nephrology is planning hemodialysis. General surgery consult for dialysis access. Wean oxygen as tolerated. Cardiology is following. Hypertensive emergency, resolved BP 245/121 on arrival. Blood pressure improved and now stable. continue home coreg, hydralazine, marcos UTI Urine culture showed no growth Continue IV Rocephin for now BEVERLY on CKD Monitor renal function. Monitor and replete electrolytes as needed. Nephrology Dr. Hanna suspect ATN superimposed on chronic kidney disease from diabetic nephropathy. On Lasix/albumin drip Mcintyre in place. Nephrology planning hemodialysis NIDDM2 accu-cheks, SSI Hyperlipidemia Hx of CVA (Left MCA territory 10/2022) Hx of Vitamin B12 deficiency Continue home medications. 09/21 No major changes from yesterday No improvement in anasarca Dialysis catheter placed yesterday by Dr. Maren BURRELL likely related to uremia Patient plan for hemodialysis today. Lasix drip changed to IV Lasix 80 mg every 6 Monitor urine output Monitor renal function. Continue and titrate medications for hypertension 09/22 Anasarca slowly improving with hemodialysis Nephrology is following and managing anasarca with hemodialysis. Further hemodialysis per nephrology. Urine output significantly improved. Continue IV Lasix. Monitor renal function. Titrate antihypertensives. 09/23 Nephrology is following. Patient now has polyuria, serum creatinine and BUN improved. Hemodialysis on hold this per nephrology. Continue to monitor response to IV Lasix Monitor and optimize electrolytes as needed. Monitor BP and titrate antihypertensives. VTE: heparin sq Code: Full Dispo: Continue ICU level of care
[2024-09-23] MEDS: LORAZEPAM 1 MG TABLET PO ONE (21:35)
[2024-09-24 05:07] LABS: Albumin 2.3 g/dL (3.4-5.0); Anion Gap 12.4 mEq/L (5.0-15.0); BUN Blood Urea Nitrogen 67.0 mg/dL (7-18); Glucose Level 125.0 mg/dL (74-106)
[2024-09-24 05:11] LABS: Magnesium 2.2 mg/dL (1.6-2.4); Potassium 4.4 mEq/L (3.5-5.1)
--- NOTE | 2024-09-24 15:15 | P.PN ---
Subjective Date of Service: 09/24/24 Chief Complaint: Volume overload with AHRF 2/2 decompensated CHF exacerbation/BEVERLY. Patient's anasarca is improving. Patient currently polyuric, about 10,000 L output recorded over the past 24 hours. He has no new complaint. Physical Examination - Vital Signs Temperature: 98.2 F Blood Pressure: 155/76 Pulse: 65 Respirations: 20 Pulse Ox (%): 94 - Studies Medications List Reviewed: Yes Assessment And Plan - Plan Physical Exam: GEN: Alert, oriented, NAD CV: Regular rate and rhythm, 2+ bilateral lower extremity edema, anasarca is improving Pulm: cleart to auscultation ABD: soft, nontender, nondistended Neuro: normal affect Mcintyre catheter in place. Problem List: Acute on chronic diastolic CHF exacerbation (55-60%EF - June 2024) Anasarca secondary to medication noncompliance Acute hypoxic respiratory failure secondary to the above Hypertensive emergency, resolved BEVERLY on CKD NIDDM2 Hyperlipidemia Hx of CVA (Left MCA territory 10/2022) Hx of Vitamin B12 deficiency Acute on chronic diastolic CHF exacerbation (55-60%EF - June 2024) Anasarca secondary to medication noncompliance Acute hypoxic respiratory failure secondary to the above on admission, presents with worsening shortness of breath, significant lower extremity edema, anasarca, orthopnea History of medication noncompliance due to insurance/cost. Ran out of meds a few weeks ago and was unable to afford refills. Refused CT in the ED due to unable to lay flat. Most recent echo (07/06/24): 55-60% EF, grade 2 diastolic dysfunction, elevated filling pressure CXR (09/16): Moderate CHF/volume overload. Continue Lasix/Albumin drip Continue Spironolactone 25mg daily. Nephrology is planning hemodialysis. General surgery consult for dialysis access. Wean oxygen as tolerated. Cardiology is following. Hypertensive emergency, resolved BP 245/121 on arrival. Blood pressure improved and now stable. continue home coreg, hydralazine, marcos UTI Urine culture showed no growth Continue IV Rocephin for now BEVERLY on CKD Monitor renal function. Monitor and replete electrolytes as needed. Nephrology Dr. Hanna suspect ATN superimposed on chronic kidney disease from diabetic nephropathy. On Lasix/albumin drip Mcitnyre in place. Nephrology planning hemodialysis NIDDM2 accu-cheks, SSI Hyperlipidemia Hx of CVA (Left MCA territory 10/2022) Hx of Vitamin B12 deficiency Continue home medications. 09/21 No major changes from yesterday No improvement in anasarca Dialysis catheter placed yesterday by Dr. Maren BURRELL likely related to uremia Patient plan for hemodialysis today. Lasix drip changed to IV Lasix 80 mg every 6 Monitor urine output Monitor renal function. Continue and titrate medications for hypertension 09/22 Anasarca slowly improving with hemodialysis Nephrology is following and managing anasarca with hemodialysis. Further hemodialysis per nephrology. Urine output significantly improved. Continue IV Lasix. Monitor renal function. Titrate antihypertensives. 09/23 Nephrology is following. Patient now has polyuria, serum creatinine and BUN improved. Hemodialysis on hold this weekend per nephrology. Continue to monitor response to IV Lasix Monitor and optimize electrolytes as needed. Monitor BP and titrate antihypertensives. 09/24 Patient with significant polyuria BUN and serum creatinine trended up despite the polyuria. Nephrology to follow and adjust diuretic-Lasix dose. Hemodialysis is on hold per nephrology Continue to monitor and replace electrolytes as needed Continue Aldactone Nephrology is following and titrating antihypertensives. Continue to monitor renal function. VTE: heparin sq Code: Full Dispo: Continue ICU level of care
[2024-09-25 07:55] LABS: Albumin 2.4 g/dL (3.4-5.0); Anion Gap 10.6 mEq/L (5.0-15.0); BUN Blood Urea Nitrogen 70.0 mg/dL (7-18); Glucose Level 122.0 mg/dL (74-106); Magnesium 2.1 mg/dL (1.6-2.4); Potassium 3.6 mEq/L (3.5-5.1)
[2024-09-25] MEDS: FUROSEMIDE 40 MG/4 ML VIAL IV SCH (09:25)
--- NOTE | 2024-09-25 11:52 | P.PN ---
Nephrology note (S) Pt moved out of the ICU, seen lying in bed, remains on LFNC, but denies dyspnea at rest, peripheral edema slowly improving, rees remains in place, diuresing acceptably, last HD Wed. Discussed plan of care General: Other (Appears chronically ill, less lethargic) HEENT: Atraumatic, Normocephalic, Other (LFNC) Neck: Supple, Rt IJ TDC Respiratory: Other (poor resp effort, non tachypnec, reduced BS at bases) Cardiovascular: Other (Non tachy, distant heart sounds) Gastrointestinal: Other (Obese, mild disention, SC edema improved, NT, scotal edema), rees present Musculoskeletal: Other (Tight pitting and non pitting edema to the dependent areas slowly improving) Integumentary: No rashes Neurological: Other (Awake, responds slowly, briefly, non tremulous) Laboratory Data (last 24 hrs) Reviewed in the EMR Conclusions/Impression: A/P) 1. Sub-acute Stage III renal failure (multifactorial) on underlying CKD Stage III with concern for sub-acute nephrotic syndrome possibly 2nd to diabetic nephropathy with A1c > 10% a few years ago +/- other, prior renal imaging w/u and limited serologic w/u thus far has been negative per review of Dr. Hanna's office visit note, request note/records for full details. HD initiated by Dr. Hanna earlier last week, TDC placed, oliguria resolved, now diuresing on IV lasix. Repeat HD ordered for clearance and UF on Wed but will currently hold HD and monitor for any signs of downward trend in Cr levels off HD. Maintain rees for now while on aggressive Lasix regimen. Maintain TDC until there are clear signs of renal recovery 2. Fluid overload. Generalized edema. Acute pulmonary edema. Acute hypercarbic, hypoxic resp failure. Elevated BNP levels. Cont to mobilize intravascular and 3rd space fluid with diuretics and UF if needed. Cont IV Lasix but did lower dose some 3. Proteinuria, unspecified. Ordered 24h urine protein evaluation but not done. Spot urine studies show sub nephrotic range. Marked abnormality of albumin noted 4. Hypertensive urgency on admission, BP remains mod elevated, will titrate Hydralazine dose. Will hold off on resuming JANICE inhibitors just yet to avoid confounding physiologic effects on GFR 5. Heart failure unspecified, TTE/w/u per IM/Cardiology team. Juan Fong MD, JESIN
[2024-09-25] MEDS: HYDRALAZINE HCL 25 MG TABLET PO SCH (13:01)
--- NOTE | 2024-09-25 15:10 | P.PN ---
Subjective Date of Service: 09/25/24 Chief Complaint: Volume overload with AHRF 2/2 decompensated CHF exacerbation/BEVERLY. Patient seen sitting up on the side of the bed. He had just finished his breakfast. Urine output remains high, about 6000 ml recorded over the past 24 hours. Patient reports improvement in his lower extremity swelling and abdominal swelling. Physical Examination - Vital Signs Temperature: 97.8 F Blood Pressure: 152/65 Pulse: 70 Respirations: 17 Pulse Ox (%): 97 - Studies Medications List Reviewed: Yes Assessment And Plan - Plan Physical Exam: GEN: Alert, oriented, NAD CV: Regular rate and rhythm, 2+ bilateral lower extremity edema, anasarca is improving Pulm: cleart to auscultation ABD: soft, nontender, nondistended Neuro: normal affect Mcintyre catheter in place. Problem List: Acute on chronic diastolic CHF exacerbation (55-60%EF - June 2024) Anasarca secondary to medication noncompliance Acute hypoxic respiratory failure secondary to the above Hypertensive emergency, resolved BEVERLY on CKD NIDDM2 Hyperlipidemia Hx of CVA (Left MCA territory 10/2022) Hx of Vitamin B12 deficiency Acute on chronic diastolic CHF exacerbation (55-60%EF - June 2024) Anasarca secondary to medication noncompliance Acute hypoxic respiratory failure secondary to the above on admission, presents with worsening shortness of breath, significant lower extremity edema, anasarca, orthopnea History of medication noncompliance due to insurance/cost. Ran out of meds a few weeks ago and was unable to afford refills. Refused CT in the ED due to unable to lay flat. Most recent echo (07/06/24): 55-60% EF, grade 2 diastolic dysfunction, elevated filling pressure CXR (09/16): Moderate CHF/volume overload. Continue Lasix/Albumin drip Continue Spironolactone 25mg daily. Nephrology is planning hemodialysis. General surgery consult for dialysis access. Wean oxygen as tolerated. Cardiology is following. Hypertensive emergency, resolved BP 245/121 on arrival. Blood pressure improved and now stable. continue home coreg, hydralazine, marcos UTI Urine culture showed no growth Continue IV Rocephin for now BEVERLY on CKD Monitor renal function. Monitor and replete electrolytes as needed. Nephrology Dr. Hanna suspect ATN superimposed on chronic kidney disease from diabetic nephropathy. On Lasix/albumin drip Mcintyre in place. Nephrology planning hemodialysis NIDDM2 accu-cheks, SSI Hyperlipidemia Hx of CVA (Left MCA territory 10/2022) Hx of Vitamin B12 deficiency Continue home medications. 09/21 No major changes from yesterday No improvement in anasarca Dialysis catheter placed yesterday by Dr. Maren BURRELL likely related to uremia Patient plan for hemodialysis today. Lasix drip changed to IV Lasix 80 mg every 6 Monitor urine output Monitor renal function. Continue and titrate medications for hypertension 09/22 Anasarca slowly improving with hemodialysis Nephrology is following and managing anasarca with hemodialysis. Further hemodialysis per nephrology. Urine output significantly improved. Continue IV Lasix. Monitor renal function. Titrate antihypertensives. 09/23 Nephrology is following. Patient now has polyuria, serum creatinine and BUN improved. Hemodialysis on hold this weekend per nephrology. Continue to monitor response to IV Lasix Monitor and optimize electrolytes as needed. Monitor BP and titrate antihypertensives. 09/24 Patient with significant polyuria BUN and serum creatinine trended up despite the polyuria. Nephrology to follow and adjust diuretic-Lasix dose. Hemodialysis is on hold per nephrology Continue to monitor and replace electrolytes as needed Continue Aldactone Nephrology is following and titrating antihypertensives. Continue to monitor renal function. 09/[address] Fong decreased Lasix dose from 80 mg every 8 to 40 mg every 8 hours. Patient has not needed dialysis for several days. Nephrology is following and managing volume status. Further hemodialysis per nephrology Continue PT. Hydralazine being titrated for BP control. Continue Aldactone Continue to monitor renal function and replace electrolytes as needed.. VTE: heparin sq Code: Full Dispo: Continue ICU level of care
[2024-09-26 05:27] LABS: Absolute Lymphocytes (CBC) 1.6 K/uL (0.7-4.9); Hematocrit 39.3 % (39.6-49.0); Hemoglobin 13.1 g/dL (13.6-17.9); MCH 29.8 pg (27.0-35.0); MCHC 33.2 g/dL (32.0-36.0); MCV 89.7 fL (80-100); MPV 9.3 fL (7.6-11.3); Nucleated RBC Absolute Count 0.0 (0-0); Nucleated Red Blood Cells % 0.1 % (0-0); RBC Red Blood Cell Count 4.38 M/uL (4.33-5.43); White Blood Count 9.40 thou/uL (4.3-10.9)
[2024-09-26 06:06] LABS: Anion Gap 7.5 mEq/L (5.0-15.0); BUN Blood Urea Nitrogen 74.0 mg/dL (7-18); Glucose Level 115.0 mg/dL (74-106); Potassium 3.5 mEq/L (3.5-5.1)
--- NOTE | 2024-09-26 08:09 | P.PN ---
Date of Service: 09/26/24 Subjective: feeling better today ~3L UOP overnight oxygen requirements improving, down to 2L NC abdomen doesn't feel as tight, appetite okay no BM in several days Physical Exam: GEN: Alert, oriented, NAD CV: Regular rate and rhythm, 2-3+ bilateral lower extremity edema up the thighs Pulm: nonlabored respirations on 2L NC, clear bilaterally ABD: soft, nontender, nondistended Mcintyre placed in ED Problem List: Acute on chronic diastolic CHF exacerbation (55-60%EF - June 2024) Anasarca secondary to medication noncompliance Acute hypoxic respiratory failure secondary to the above BEVERLY on CKD Hypertensive emergency, resolved NIDDM2 Hyperlipidemia Hx of CVA (Left MCA territory 10/2022) Hx of Vitamin B12 deficiency Acute on chronic diastolic CHF exacerbation (55-60%EF - June 2024) Anasarca secondary to medication noncompliance Acute hypoxic respiratory failure secondary to the above BEVERLY on CKD on admission, presents with worsening shortness of breath, significant lower extremity edema, anasarca, orthopnea History of medication noncompliance due to insurance/cost. Ran out of meds a few weeks ago and was unable to afford refills. Most recent echo (07/06/24): 55-60% EF, grade 2 diastolic dysfunction, elevated filling pressure s/p tunneled HD cath with Dr. Engel (09/20) Anasarca improved with dialysis but was stopped due to polyuria Last Dialysis was ~/Wednesday. Will discuss with nephrology regarding further HD vs removing catheter in near future Renal function and swelling has been improving/stable since stopping dialysis Monitor renal function. Monitor and replete electrolytes as needed. Nephrology is following Continue IV lasix 40 mg q8h Hypertensive emergency, resolved BP 245/121 on arrival. continue home coreg, hydralazine, marcos BP more controlled since restarting home meds NIDDM2 accu-cheks, SSI Hyperlipidemia Hx of CVA (Left MCA territory 10/2022) Hx of Vitamin B12 deficiency confirm home meds, restart as appropriate VTE: heparin sq Code: Full Dispo: Home vs SNF Pending further diuresis PT re-eval today Time Spent Managing Pts Care (In Minutes): 55
--- NOTE | 2024-09-26 12:05 | P.PN ---
Nephrology note (S) Pt seen sitting at the side of the bed, slowly improving, remains on LFNC, diuresing well, renal function tests showing a slow Cr level downward trend, plan to cont to hold HD discussed with pt vitals reviewed in the EMR General: Other (Appears chronically ill, less lethargic) HEENT: Atraumatic, Normocephalic, Other (LFNC) Neck: Supple, Rt IJ TDC Respiratory: Other (poor resp effort, non tachypnec, reduced BS at bases) Cardiovascular: Other (Non tachy, distant heart sounds) Gastrointestinal: Other (Obese, mild disention, SC edema improved, NT, scotal edema), rees present Musculoskeletal: Other (Tight pitting and non pitting edema to the dependent areas slowly improving) Integumentary: No rashes Neurological: Other (Awake, responds slowly, briefly, non tremulous) Laboratory Data (last 24 hrs) Reviewed in the EMR Conclusions/Impression: A/P) 1. Sub-acute Stage III renal failure (multifactorial) on underlying CKD Stage III with concern for sub-acute nephrotic syndrome possibly 2nd to diabetic nephropathy with A1c > 10% a few years ago +/- other, prior renal imaging w/u and limited serologic w/u thus far has been negative per review of Dr. Hanna's office visit note, request note/records for full details. HD initiated by Dr. Hanna earlier last week, TDC placed, oliguria resolved, now diuresing well on IV lasix. Repeat HD ordered for clearance and UF on Wed but will currently cont hold HD as there is a slow mild downward trend in Cr levels off HD. Maintain rees for now while on aggressive Lasix regimen. Maintain TDC until there are clear signs of renal recovery 2. Fluid overload. Generalized edema. Acute pulmonary edema. Acute hypercarbic, hypoxic resp failure. Elevated BNP levels. Cont to mobilize intravascular and 3rd space fluid with diuretics and UF if needed. Cont IV Lasix but will cont to de-escalate dose to ensure rate of diuresis is not excessive. Will look to transition to PO diuretics within the next 24h or so 3. Proteinuria, unspecified. Ordered 24h urine protein evaluation but not done. Spot urine studies show sub nephrotic range. Marked abnormality of albumin noted 4. Hypertensive urgency on admission, BP remains mod elevated, did titrate Hydralazine dose. Will hold off on resuming JANICE inhibitors just yet to avoid confounding physiologic effects on GFR and while actively diuresing 5. Heart failure unspecified, TTE/w/u per IM/Cardiology team. Juan Fong MD, MIKKI
[2024-09-26] MEDS: POTASSIUM CL SA 10 MEQ TAB PO SCH (12:30)
[2024-09-26] MEDS: FUROSEMIDE 40 MG/4 ML VIAL IV SCH (17:10)
[2024-09-27 05:26] LABS: Anion Gap 7.4 mEq/L (5.0-15.0); BUN Blood Urea Nitrogen 78.0 mg/dL (7-18); Glucose Level 127.0 mg/dL (74-106); Potassium 3.4 mEq/L (3.5-5.1)
[2024-09-27] MEDS ORDERED: ALBUTEROL 2.5 MG/3 ML NEB SOL NEB PRN (08:23)
--- NOTE | 2024-09-27 11:16 | P.PN ---
Date of Service: 09/27/24 Subjective: feels slightly better today worked with PT yesterday. Would benefit from further SNF/PT doesn't feel worse afebrile Physical Exam: GEN: Alert, oriented, NAD CV: Regular rate and rhythm, 2-3+ bilateral lower extremity edema up the thighs Pulm: nonlabored respirations on 2L NC, clear bilaterally ABD: soft, nontender, nondistended Mcintyre placed in ED Problem List: Acute on chronic diastolic CHF exacerbation (55-60%EF - June 2024) Anasarca secondary to medication noncompliance Acute hypoxic respiratory failure secondary to the above BEVERLY on CKD Hypertensive emergency, resolved NIDDM2 Hyperlipidemia Hx of CVA (Left MCA territory 10/2022) Hx of Vitamin B12 deficiency Acute on chronic diastolic CHF exacerbation (55-60%EF - June 2024) Anasarca secondary to medication noncompliance Acute hypoxic respiratory failure secondary to the above BEVERLY on CKD on admission, presents with worsening shortness of breath, significant lower extremity edema, anasarca, orthopnea History of medication noncompliance due to insurance/cost. Ran out of meds a few weeks ago and was unable to afford refills. Most recent echo (07/06/24): 55-60% EF, grade 2 diastolic dysfunction, elevated filling pressure s/p tunneled HD cath with Dr. Engel (09/20) Anasarca improved with dialysis but was stopped due to polyuria Last Dialysis was ~/Wednesday. Will discuss with nephrology regarding further HD vs removing catheter in near future Renal function and swelling has been improving/stable since stopping dialysis Monitor renal function. Monitor and replete electrolytes as needed. Nephrology is following Continue IV lasix BID; switched from TID yesterday Hypertensive emergency, resolved BP 245/121 on arrival. continue home coreg, hydralazine, marcos BP more controlled since restarting home meds NIDDM2 accu-cheks, SSI Hyperlipidemia Hx of CVA (Left MCA territory 10/2022) Hx of Vitamin B12 deficiency confirm home meds, restart as appropriate VTE: heparin sq Code: Full Dispo: SNF Pending further diuresis, renal function improves, SNF auth PT re-eval today Time Spent Managing Pts Care (In Minutes): 45
--- NOTE | 2024-09-27 12:15 | P.PN ---
Nephrology note (S) Pt remains on LFNC, no acute events, cont to diurese > 2L/UOP a day but no further improvement in renal function noted, remains debilitated/generalized weakness, not able to walk currently, discussed plan of care with pt and IM team vitals reviewed in the EMR General: Other (Appears chronically ill, less lethargic) HEENT: Atraumatic, Normocephalic, Other (LFNC) Neck: Supple, Rt IJ TDC Respiratory: Other (poor resp effort, non tachypnec, reduced BS at bases) Cardiovascular: Other (Non tachy, distant heart sounds) Gastrointestinal: Other (Obese, mild disention, SC edema improved, NT, scotal edema), rees present Musculoskeletal: Other (Tight pitting and non pitting edema to the dependent areas slowly improving) Integumentary: No rashes Neurological: Other (Awake, responds slowly, briefly, non tremulous) Laboratory Data (last 24 hrs) Reviewed in the EMR Conclusions/Impression: A/P) 1. Sub-acute Stage III renal failure (multifactorial) on underlying CKD Stage III with concern for sub-acute nephrotic syndrome possibly 2nd to diabetic nephropathy with A1c > 10% a few years ago +/- other, prior renal imaging w/u and limited serologic w/u thus far has been negative per review of Dr. Hanna's office visit note, request note/records for full details. HD initiated by Dr. Hanna earlier last week, TDC placed, oliguria resolved, now diuresing well on IV lasix. Repeat HD ordered for clearance and UF on Wed but will currently continuing hold HD as there was earlier in the week a slow mild downward trend in Cr levels off HD but now plateauing and not yet clear if pt can avoid HD so will need to cont to monitor Will send in referral for OP HD in ARF in case needed, pt is likely also needing discharge to SNF for various reasons Maintain rees for now while on aggressive Lasix regimen. Maintain TDC until there are clear signs of renal recovery 2. Fluid overload. Generalized edema. Acute pulmonary edema. Acute hypercarbic, hypoxic resp failure. Elevated BNP levels. Cont to mobilize intravascular and 3rd space fluid with diuretics and UF if needed. Cont IV Lasix but did cont to de-escalate dose to ensure rate of diuresis is not excessive. Will assess when to transition to PO diuretics 3. Proteinuria, unspecified. Ordered 24h urine protein evaluation but not done. Spot urine studies show sub nephrotic range. Marked abnormality of albumin noted 4. Hypertensive urgency on admission, BP remains mod elevated, did titrate Hydralazine dose. Will hold off on resuming JANICE inhibitors just yet to avoid confounding physiologic effects on GFR and while actively diuresing 5. Heart failure unspecified, TTE/w/u per IM/Cardiology team. Juan Fong MD, MIKKI
[2024-09-28 05:45] LABS: Albumin 2.5 g/dL (3.4-5.0); Anion Gap 7.6 mEq/L (5.0-15.0); BUN Blood Urea Nitrogen 82.0 mg/dL (7-18); Glucose Level 116.0 mg/dL (74-106); Magnesium 2.1 mg/dL (1.6-2.4); Potassium 3.6 mEq/L (3.5-5.1)
--- NOTE | 2024-09-28 09:26 | P.PN ---
Date of Service: 09/28/24 Subjective: Now reports some blurry vision / vision loss which has been slowly getting worse over the last few months feels vision on both sides has gotten worse in the last few days compared to past, but only now bringing it up Vision worse on the right. States he saw eye doctor and had work up a few weeks ago and wasn't told anything states right side was only minimal vision, and now only sees vague shapes/light at this point he is not very clear on specifics otherwise doing okay still edematous, still weak Physical Exam: GEN: Alert, oriented, NAD Neuro: HEENT: PERRL, visual gutiérrez by confrontation - minimal blink on right eye, left ok, some blurred vision on left, unable to count fingers CV: Regular rate and rhythm, 2-3+ bilateral lower extremity edema up the thighs Pulm: nonlabored respirations on 2L NC, clear bilaterally ABD: soft, nontender, nondistended Mcintyre placed in ED Problem List: Acute on chronic diastolic CHF exacerbation (55-60%EF - June 2024) Anasarca secondary to medication noncompliance Acute hypoxic respiratory failure secondary to the above BEVERLY on CKD Vision loss/Blurry Vision Hypertensive emergency, resolved NIDDM2 Hyperlipidemia Hx of CVA (Left MCA territory 10/2022) Hx of Vitamin B12 deficiency Acute on chronic diastolic CHF exacerbation (55-60%EF - June 2024) Anasarca secondary to medication noncompliance Acute hypoxic respiratory failure secondary to the above BEVERLY on CKD on admission, presents with worsening shortness of breath, significant lower extremity edema, anasarca, orthopnea History of medication noncompliance due to insurance/cost. Ran out of meds a few weeks ago and was unable to afford refills. Most recent echo (07/06/24): 55-60% EF, grade 2 diastolic dysfunction, elevated filling pressure s/p tunneled HD cath with Dr. Engel (09/20) Anasarca improved with dialysis but was stopped due to polyuria Last Dialysis was ~/Wednesday. Will discuss with nephrology regarding further HD vs removing catheter in near future Renal function and swelling has been improving/stable since stopping dialysis Monitor renal function. Monitor and replete electrolytes as needed. Nephrology is following continue lasix per nephro Vision loss/Blurry Vision Hx of CVA (Left MCA territory 10/2022) Report some blurry vision / vision loss which has been slowly getting worse over the last few months Vision worse on the right. States he saw eye doctor and had work up but unsure on results feels vision on both sides has gotten worse in last few days - but only now bringing it up, did not mention yesterday CT head ordered to further eval, r/o CVA Dr. Rod, Neuro consulted Hypertensive emergency, resolved BP 245/121 on arrival. continue home coreg, hydralazine, marcos BP more controlled since restarting home meds NIDDM2 accu-cheks, SSI Hyperlipidemia Hx of CVA (Left MCA territory 10/2022) Hx of Vitamin B12 deficiency confirm home meds, restart as appropriate VTE: heparin sq Code: Full Dispo: SNF Pending further diuresis, renal function improves, SNF auth PT re-eval today Time Spent Managing Pts Care (In Minutes): 45
--- NOTE | 2024-09-28 10:13 | RAD REPORT ---
EXAM: CT brain without contrast HISTORY: Blurred vision COMPARISON: 2022 TECHNIQUE: Multiple contiguous axial images were obtained and a CT of the brain without contrast.. Sagittal and coronal reconstruction performed. Automated exposure control, adjustment of the mA and/or kV according to patient size, and/or iterative reconstruction. Unless otherwise specified, incidental f indings do not require dedicated imaging follow-up FINDINGS: An intracranial bleed is not seen Ventricles are normal caliber No extra-axial fluid collection noted 2.1 cm low-density area has developed within the left basal ganglia/left periventricular white matter . There is dilatation of the adjacent lateral ventricle. This has the appearance of an old infarction. No fluid within the visualized sinuses or mastoids noted. IMPRESSION: No acute intracranial abnormality noted. If the patient continues to have symptoms to suggest an acute intracranial abnormality then MRI of th e brain would be recommended.
--- NOTE | 2024-09-28 11:59 | P.PN ---
Nephrology note (S) Pt remains on LFNC, no acute events, cont to diurese acceptably but no further improvement in renal function noted, in fact discussed mild upward rise in BUN/Cr levels, remains debilitated/generalized weakness, not able to walk currently, discussed plan of care with pt and IM team in detail. vitals reviewed in the EMR General: Other (Appears chronically ill, less lethargic) HEENT: Atraumatic, Normocephalic, Other (LFNC) Neck: Supple, Rt IJ TDC Respiratory: Other (poor resp effort, non tachypnec, reduced BS at bases) Cardiovascular: Other (Non tachy, distant heart sounds) Gastrointestinal: Other (Obese, mild disention, SC edema improved, NT, scotal edema), rees present Musculoskeletal: Other (Tight pitting and non pitting edema to the dependent areas slowly improving but still present) Integumentary: No rashes Neurological: Other (Awake, responds slowly, briefly, able to participate in conversation non tremulous) Laboratory Data (last 24 hrs) Reviewed in the EMR Conclusions/Impression: A/P) 1. Sub-acute Stage III renal failure (multifactorial) on underlying CKD Stage III with concern for sub-acute nephrotic syndrome initially possibly 2nd to diabetic nephropathy with A1c > 10% a few years ago +/- other, prior renal imaging w/u and limited serologic w/u thus far has been negative per review of Dr. Hanna's office visit note, request note/records for full details. HD initiated by Dr. Hanna earlier last week, TDC placed, oliguria resolved, now diuresing well on IV lasix but will now transition to PO Lasx Repeat HD ordered for clearance and UF on Wed but currently continuing hold HD as there was earlier in the week a slow mild downward trend in Cr levels off HD but now plateauing/mild rise back up so not yet clear if pt can avoid HD and will need to cont to monitor Will send in referral for OP HD in ARF in case needed, pt is likely also needing discharge to SNF for various reasons Maintain rees for now but will look to d/c prior to discharge Maintain TDC until there are clear signs of renal recovery 2. Fluid overload. Generalized edema. Acute pulmonary edema. Acute hypercarbic, hypoxic resp failure. Elevated BNP levels. Cont to mobilize intravascular and 3rd space fluid with diuretics and UF if needed. Cont IV Lasix but did cont to de-escalate dose to ensure rate of diu resis is not excessive, will now transition to PO diuretics. Not weaned off O2, will repeat CXR in AM to re-assess prior pulm edema 3. Proteinuria, unspecified. Ordered 24h urine protein evaluation but not done. Spot urine studies however show sub nephrotic range. Marked abnormality of albumin noted 4. Hypertensive urgency on admission, BP had initially remained mod elevated, did titrate Hydralazine dose, BP is now doing better overall. Will hold off on resuming JANICE inhibitors just yet to avoid confounding physiologic effects on GFR and while actively diuresing 5. Heart failure unspecified, TTE/w/u per IM/Cardiology team. Cont diuretics, BP regimen Juan Fong MD, MIKKI
[2024-09-28] MEDS: FUROSEMIDE 40 MG TABLET PO SCH (18:21)
[2024-09-28] MEDS: ATORVASTATIN 80 MG TAB PO SCH (21:21)
[2024-09-29 06:24] LABS: Hematocrit 35.2 % (39.6-49.0); Hemoglobin 12.2 g/dL (13.6-17.9); MCH 30.6 pg (27.0-35.0); MCHC 34.6 g/dL (32.0-36.0); MCV 88.6 fL (80-100); MPV 8.6 fL (7.6-11.3); RBC Red Blood Cell Count 3.97 M/uL (4.33-5.43); White Blood Count 9.10 thou/uL (4.3-10.9)
[2024-09-29 06:48] LABS: ALT/SGPT 19.0 U/L (16-61); AST/SGOT 19.0 U/L (15-37); Albumin 2.4 g/dL (3.4-5.0); Albumin/Globulin Ratio 0.6 (1.1-1.8); Alkaline Phosphatase 135.0 U/L (45-117); Anion Gap 9.8 mEq/L (5.0-15.0); BUN Blood Urea Nitrogen 84.0 mg/dL (7-18); Globulin 3.9 g/dL (2.3-3.5); Glucose Level 112.0 mg/dL (74-106); Magnesium 2.2 mg/dL (1.6-2.4); Potassium 3.8 mEq/L (3.5-5.1)
--- NOTE | 2024-09-29 07:49 | RAD REPORT ---
EXAM: Chest Single View HISTORY: 53 years Male Dyspnea, need for O2 COMPARISON: 09/20/2024 FINDINGS: LUNGS/PLEURA: Widespread interstitial and airspace disease with probable layering pleural effusions. CARDIAC/MEDIASTINUM: Moderate cardiomegaly. UPPER ABDOMEN: No significant abnormality. BONES: No acute abnormality. LINES/TUBES/OTHER: Right IJ vas catheter with tip overlying the superior cavoatrial junction. IMPRESSION: Pulmonary edema which appears severe with bilateral pleural effusions.
[2024-09-29] MEDS: FUROSEMIDE 40 MG TABLET PO SCH ×2 (09:16→17:26)
--- NOTE | 2024-09-29 11:19 | P.PN ---
Nephrology note (S) Pt remains on LFNC, no acute events, transitioned to PO lasix, recorded UOP has been < 2L, lower now, 300 cc or so noted in the rees bag on rounds this AM, remains debilitated/generalized weakness, not able to walk currently, discussed plan of care with pt and IM team in detail. CM note for SNF and OP HD reviewed and discussed with pt vitals reviewed in the EMR General: Other (Appears chronically ill, less lethargic) HEENT: Atraumatic, Normocephalic, Other (LFNC) Neck: Supple, Rt IJ TDC Respiratory: Other (poor resp effort, non tachypnec, reduced BS at bases) Cardiovascular: Other (Non tachy, distant heart sounds) Gastrointestinal: Other (Obese, mild disention, SC edema improved, NT, scotal edema), rees present Musculoskeletal: Other (Tight pitting and non pitting edema to the dependent areas slowly improving but still present) Integumentary: No rashes Neurological: Other (Awake, responds slowly, briefly, able to participate in conversation non tremulous) Laboratory Data (last 24 hrs) Reviewed in the EMR Conclusions/Impression: A/P) 1. Sub-acute Stage III renal failure (multifactorial) on underlying CKD Stage III with concern for sub-acute nephrotic syndrome initially possibly 2nd to diabetic nephropathy with A1c > 10% a few years ago +/- other, prior renal imaging w/u and limited serologic w/u thus far has been negative per review of Dr. Hanna's office visit note, request note/records for full details. HD initiated by Dr. Hanna earlier last week, TDC placed, oliguria resolved, was diuresing well on IV lasix but did now transition to PO Lasix Repeat HD ordered for clearance and UF on Wed but currently continuing hold HD as there was earlier in the week a slow mild downward trend in Cr levels off HD but now plateauing/mild rise back up so no clear signs of renal recovery and will proceed with repeat HD today Did send in referral for OP HD in [facility], pt also needing discharge to SNF for various reasons Maintain rees for now but will look to d/c prior to discharge Maintain TDC 2. Fluid overload. Generalized edema. Acute pulmonary edema. Acute hypercarbic, hypoxic resp failure. Elevated BNP levels. Cont to mobilize intravascular and 3rd space fluid with diuretics and UF if needed. Did initially IV Lasix but with loss of weight and some improvement in edema and BP, did de-escalate dose to ensure rate of diuresis was not excessive, did now transition to PO diuretics. Not weaned off O2, did repeat CXR which remains abnormal with b/l infilrates and effusions -Will plan for HD today with UF of 3L if tolerated 3. Proteinuria, unspecified. Ordered 24h urine protein evaluation but not done. Spot urine studies however show sub nephrotic range. Marked abnormality of albumin noted 4. Hypertensive urgency on admission, BP had initially remained mod elevated, did titrate Hydralazine dose, BP is now doing better overall, will seek to avoid relative hypotension. Will hold off on resuming JANICE inhibitors just yet to avoid confounding physiologic effects on GFR and while actively diuresing 5. Heart failure unspecified, TTE/w/u per IM/Cardiology team. Cont diuretics, BP regimen Juan Fong MD, MIKKI
--- NOTE | 2024-09-29 11:57 | P.PN ---
Date of Service: 09/29/24 Subjective: no significant changes continues with edema, some shortness of breath Physical Exam: GEN: Alert, oriented, NAD CV: Regular rate and rhythm, 2-3+ bilateral lower extremity edema up the thighs Pulm: nonlabored respirations on 2L NC, clear bilaterally ABD: soft, nontender, nondistended Rees placed in ED Problem List: Acute on chronic diastolic CHF exacerbation (55-60%EF - June 2024) Anasarca secondary to medication noncompliance Acute hypoxic respiratory failure secondary to the above BEVERLY on CKD Vision loss/Blurry Vision Hypertensive emergency, resolved NIDDM2 Hyperlipidemia Hx of CVA (Left MCA territory 10/2022) Hx of Vitamin B12 deficiency Acute on chronic diastolic CHF exacerbation (55-60%EF - June 2024) Anasarca secondary to medication noncompliance Acute hypoxic respiratory failure secondary to the above BEVERLY on CKD on admission, presents with worsening shortness of breath, significant lower extremity edema, anasarca, orthopnea History of medication noncompliance due to insurance/cost. Ran out of meds a few weeks ago and was unable to afford refills. Most recent echo (07/06/24): 55-60% EF, grade 2 diastolic dysfunction, elevated filling pressure s/p tunneled HD cath with Dr. Engel (09/20) Anasarca improved with dialysis but was stopped due to polyuria Monitor renal function. Monitor and replete electrolytes as needed. Maintain rees for now. Possible DC before discharge. Last Dialysis was ~/[facility] last week. Renal function initially improved after stopping dialysis however now seemed to have plateaued and starting to worsen again Nephrology recommending restarting on HD - to be done today (09/29) CXR today with severe pulm edema/bilateral effusions - read as moderate on admission. Continue PO lasix 80 mg BID per nephro Nephro is following Vision loss/Blurry Vision Hx of CVA (Left MCA territory 10/2022) Report some blurry vision / vision loss which has been slowly getting worse over the last few months Vision worse on the right. States he saw eye doctor and had work up but unsure on results feels vision on both sides has gotten worse in last few days - but only now bringing it up, did not mention yesterday CT head negative for any acute findings. Showed old known basal ganglia CVA. no new CVA. Dr. Rod, Neuro consulted Hypertensive emergency, resolved BP 245/121 on arrival. continue home coreg, hydralazine, marcos BP more controlled since restarting home meds NIDDM2 accu-cheks, SSI Hyperlipidemia Hx of CVA (Left MCA territory 10/2022) Hx of Vitamin B12 deficiency confirm home meds, restart as appropriate VTE: heparin sq Code: Full Dispo: SNF Pending further diuresis/HD, renal function improves, SNF auth PT re-eval today Time Spent Managing Pts Care (In Minutes): 45
[2024-09-29] MEDS: ALTEPLASE 2 MG/VIAL IV ONE (14:00)
[2024-09-29] MEDS ORDERED: WATER FOR INJ,STERILE 10 ML IV ONE (14:00)
[2024-09-29] MEDS: HYDRALAZINE HCL 25 MG TABLET PO SCH (20:36)
[2024-09-30 06:40] LABS: Albumin 2.6 g/dL (3.4-5.0); Anion Gap 11.0 mEq/L (5.0-15.0); BUN Blood Urea Nitrogen 61.0 mg/dL (7-18); Glucose Level 109.0 mg/dL (74-106); Potassium 4.0 mEq/L (3.5-5.1)
--- NOTE | 2024-09-30 08:53 | P.PN ---
Date of Service: 09/30/24 Subjective: tolerated dialysis yesterday without issues had ~6L removed breathing feels same as yesterday no events overnight no change in vision Physical Exam: GEN: Alert, oriented, NAD CV: Regular rate and rhythm, 2-3+ bilateral lower extremity edema up the thighs Pulm: nonlabored respirations on 2L NC, clear bilaterally ABD: soft, nontender, nondistended Rees placed in ED Problem List: Acute on chronic diastolic CHF exacerbation (55-60%EF - June 2024) Anasarca secondary to medication noncompliance Acute hypoxic respiratory failure secondary to the above BEVERLY on CKD Vision loss/Blurry Vision Hypertensive emergency, resolved NIDDM2 Hyperlipidemia Hx of CVA (Left MCA territory 10/2022) Hx of Vitamin B12 deficiency Acute on chronic diastolic CHF exacerbation (55-60%EF - June 2024) Anasarca secondary to medication noncompliance Acute hypoxic respiratory failure secondary to the above BEVERLY on CKD on admission, presents with worsening shortness of breath, significant lower extremity edema, anasarca, orthopnea History of medication noncompliance due to insurance/cost. Ran out of meds a few weeks ago and was unable to afford refills. Most recent echo (07/06/24): 55-60% EF, grade 2 diastolic dysfunction, elevated filling pressure s/p tunneled HD cath with Dr. Engel (09/20) Anasarca improved with dialysis but was stopped due to polyuria. Monitor renal function. Monitor and replete electrolytes as needed. Maintain rees for now. Possible DC before discharge. Renal function initially improved after stopping dialysis however now seemed to have plateaued and starting to worsen again Nephrology recommending restarting on HD; restarted 09/29 Continue PO lasix 80 mg BID Dialysis per nephrology Echo to be done Wednesday Vision loss/Blurry Vision Hx of CVA (Left MCA territory 10/2022) Report some blurry vision / vision loss which has been slowly getting worse over the last few months Vision worse on the right. States he saw eye doctor and had work up but unsur e on results feels vision on both sides has gotten worse in last few days - but only now bringing it up, did not mention yesterday CT head negative for any acute findings. Showed old known basal ganglia CVA. no new CVA. Dr. Rod, Neuro consulted Hypertensive emergency, resolved BP 245/121 on arrival. continue home coreg, hydralazine, marcos BP more controlled since restarting home meds NIDDM2 accu-cheks, SSI Hyperlipidemia Hx of CVA (Left MCA territory 10/2022) Hx of Vitamin B12 deficiency confirm home meds, restart as appropriate VTE: heparin sq Code: Full Dispo: SNF Pending further diuresis/HD, renal function improves, SNF auth PT re-eval today Time Spent Managing Pts Care (In Minutes): 45
[2024-10-01 05:22] LABS: Hematocrit 37.3 % (39.6-49.0); Hemoglobin 12.5 g/dL (13.6-17.9); MCH 30.1 pg (27.0-35.0); MCHC 33.4 g/dL (32.0-36.0); MCV 90.2 fL (80-100); MPV 9.1 fL (7.6-11.3); RBC Red Blood Cell Count 4.14 M/uL (4.33-5.43); White Blood Count 8.70 thou/uL (4.3-10.9)
[2024-10-01 06:18] LABS: Albumin 2.6 g/dL (3.4-5.0); Anion Gap 10.8 mEq/L (5.0-15.0); BUN Blood Urea Nitrogen 67.0 mg/dL (7-18); Glucose Level 122.0 mg/dL (74-106); Magnesium 2.1 mg/dL (1.6-2.4); Potassium 3.8 mEq/L (3.5-5.1)
--- NOTE | 2024-10-01 12:04 | P.PN ---
Date of Service: 10/01/24 Subjective: tolerating dialysis no new issues overnight vitals stable Physical Exam: GEN: Alert, oriented, NAD CV: Regular rate and rhythm, 2-3+ bilateral lower extremity edema up the thighs Pulm: nonlabored respirations on 2L NC, clear bilaterally ABD: soft, nontender, nondistended Rees placed in ED Problem List: Acute on chronic diastolic CHF exacerbation (55-60%EF - June 2024) Anasarca secondary to medication noncompliance Acute hypoxic respiratory failure secondary to the above BEVERLY on CKD Vision loss/Blurry Vision Hypertensive emergency, resolved NIDDM2 Hyperlipidemia Hx of CVA (Left MCA territory 10/2022) Hx of Vitamin B12 deficiency Acute on chronic diastolic CHF exacerbation (55-60%EF - June 2024) Anasarca secondary to medication noncompliance Acute hypoxic respiratory failure secondary to the above BEVERLY on CKD on admission, presents with worsening shortness of breath, significant lower extremity edema, anasarca, orthopnea History of medication noncompliance due to insurance/cost. Ran out of meds a few weeks ago and was unable to afford refills. Most recent echo (07/06/24): 55-60% EF, grade 2 diastolic dysfunction, elevated filling pressure s/p tunneled HD cath with Dr. Engel (09/20) Anasarca improved with dialysis but was stopped due to polyuria. Monitor renal function. Monitor and replete electrolytes as needed. Maintain rees for now. Possible DC before discharge. Renal function initially improved after stopping dialysis however now seemed to have plateaued and started to worsen again Nephrology recommended restarting on HD; restarted 09/29 Continue PO lasix 80 mg BID Dialysis per nephrology Echo to be done tomorrow Vision loss/Blurry Vision Hx of CVA (Left MCA territory 10/2022) Report some blurry vision / vision loss which has been slowly getting worse over the last few months Vision worse on the right. States he saw eye doctor and had work up but unsure on results feels vision on both sides has gotten worse in last few days - but only now bringing it up, did not mention yesterday CT head negative for any acute findings. Showed old known basal ganglia CVA. no new CVA. Dr. Rod, Neuro consulted Hypertensive emergency, resolved BP 245/121 on arrival. continue home coreg, hydralazine, marcos BP more controlled since restarting home meds NIDDM2 accu-cheks, SSI Hyperlipidemia Hx of CVA (Left MCA territory 10/2022) Hx of Vitamin B12 deficiency confirm home meds, restart as appropriate VTE: heparin sq Code: Full Dispo: SNF Pending further diuresis/HD, renal function improves, SNF auth PT re-eval today Time Spent Managing Pts Care (In Minutes): 45
[2024-10-02 05:57] LABS: Albumin 2.6 g/dL (3.4-5.0); Anion Gap 9.9 mEq/L (5.0-15.0); BUN Blood Urea Nitrogen 72.0 mg/dL (7-18); Glucose Level 100.0 mg/dL (74-106); Magnesium 2.1 mg/dL (1.6-2.4); NT PRO-BNP 5031.0 pg/mL (<125); Potassium 3.9 mEq/L (3.5-5.1)
--- NOTE | 2024-10-02 07:42 | RAD REPORT ---
EXAM: Chest Single View HISTORY: 53 years Male f/u pulm edema COMPARISON: 09/29/2024 FINDINGS: LUNGS/PLEURA: Severe pulmonary edema with layering pleural effusions similar to 09/29/2024. CARDIAC/MEDIASTINUM: Stable enlargement. UPPER ABDOMEN: No significant abnormality. BONES: No acute abnormality. LINES/TUBES/OTHER: Right IJ dialysis catheter with tip overlying the SVC. IMPRESSION: No significant change in pulmonary edema and at least moderate pleural effusions.
--- NOTE | 2024-10-02 09:11 | P.PN ---
Date of Service: 10/02/24 Subjective: no overnight events breathing okay. Doesn't feel worse had large BM yesterday reports vision loss/blurry vision has been unchanged for several days afebrile Physical Exam: GEN: Alert, oriented, NAD CV: Regular rate and rhythm, 2-3+ bilateral lower extremity edema up the thighs Pulm: nonlabored respirations on 2L NC, clear bilaterally ABD: soft, nontender, nondistended Rees placed in ED Problem List: Acute on chronic diastolic CHF exacerbation (55-60%EF - June 2024) Anasarca secondary to medication noncompliance Acute hypoxic respiratory failure secondary to the above BEVERLY on CKD Vision loss/Blurry Vision Hypertensive emergency, resolved NIDDM2 Hyperlipidemia Hx of CVA (Left MCA territory 10/2022) Hx of Vitamin B12 deficiency Acute on chronic diastolic CHF exacerbation (55-60%EF - June 2024) Anasarca secondary to medication noncompliance Acute hypoxic respiratory failure secondary to the above BEVERLY on CKD on admission, presents with worsening shortness of breath, significant lower ex tremity edema, anasarca, orthopnea History of medication noncompliance due to insurance/cost. Ran out of meds a few weeks ago and was unable to afford refills. Most recent echo (07/06/24): 55-60% EF, grade 2 diastolic dysfunction, elevated filling pressure s/p tunneled HD cath with Dr. Engel (09/20) Anasarca improved with dialysis but was stopped due to polyuria. Monitor renal function. Monitor and replete electrolytes as needed. Maintain rees for now. Possible DC before discharge. Renal function initially improved after stopping dialysis however now seemed to have plateaued and started to worsen again Nephrology recommended restarting on HD; restarted 09/29 Continue PO lasix 80 mg BID Dialysis per nephrology Echo completed, pending official report Vision loss/Blurry Vision Hx of CVA (Left MCA territory 10/2022) Report some blurry vision / vision loss which has been slowly getting worse over the last few months Vision worse on the right. States he saw eye doctor and had work up but unsure on results feels vision on both sides has gotten worse in last few days - but only now bringing it up, did not mention yesterday CT head negative for any acute findings. Showed old known basal ganglia CVA. no new CVA. Dr. Rod, Neuro consulted Hypertensive emergency, resolved BP 245/121 on arrival. continue home coreg, hydralazine, marcos BP more controlled since restarting home meds NIDDM2 accu-cheks, SSI Hyperlipidemia Hx of CVA (Left MCA territory 10/2022) Hx of Vitamin B12 deficiency confirm home meds, restart as appropriate VTE: heparin sq Code: Full Dispo: SNF Pending further diuresis/HD, renal function improves, SNF auth PT re-eval today Time Spent Managing Pts Care (In Minutes): 45
--- NOTE | 2024-10-02 15:33 | ECHO ---
HEIGHT: 5 ft 10 in WEIGHT: 286 lb 9.6 oz DATE OF STUDY: 10/02/[address]: Juan Fong 2-DIMENSIONAL: YES M.MODE: YES DOPPLER: YES COLOR FLOW: YES TDS: PORTABLE: YES DEFINITY: BUBBLE STUDY: DIAGNOSIS: FULID OVERLOAD/ ELEVATED BNP/ CONGESTIVE HEART FAILURE CARDIAC HISTORY: CATHERIZATION: NO SURGERY: NO PROSTHETIC VALVE: NO PACEMAKER: NO MEASUREMENTS (cm) DIASTOLIC (NORMALS) SYSTOLIC (NORMALS) IVSd 1.3 (0.6-1.2) LA Diam 4.2 (1.9-4.0) LVEF 60-65% LVIDd 5.2 (3.5-5.7) LVIDs 3.0 (2.0-3.5) %FS 43% LVPWd 1.2 (0.6-1.2) Ao Diam 2.8 (2.0-3.7) 2 DIMENSIONAL ASSESSMENT: RIGHT ATRIUM: NORMAL LEFT ATRIUM: NORMAL RIGHT VENTRICLE: NORMAL LEFT VENTRICLE: MILD LEFT VENTRICULAR HYPERTROPHY TRICUSPID VALVE: TRACE TRICUSPID REGURGITATION MITRAL VALVE: NORMAL PULMONIC VALVE: NORMAL AORTIC VALVE: NORMAL PERICARDIAL EFFUSION: NONE AORTIC ROOT: NORMAL LEFT VENTRICULAR WALL MOTION: NORMAL DOPPLER/COLOR FLOW: GRADE I DIASTOLIC DYSFUNCTION COMMENTS: 1. NORMAL LEFT VENTRICULAR SYSTOLIC FUNCTION, EJECTION FRACTION 60-65%, NORMAL WALL MOTION 2. GRADE I DIASTOLIC DYSFUNCTION 3. ELEVATED FILLING PRESSURE (RIGHT ATRIAL PRESSURE GREATER THAN 20 mmHg) TECHNOLOGIST: SANIYA ADRIAN
[2024-10-02] MEDS: SPIRONOLACTONE 25 MG TABLET PO SCH (17:34)
[2024-10-02] MEDS: DOXAZOSIN 2 MG TAB PO SCH (20:29)
--- NOTE | 2024-10-02 20:30 | P.PN ---
Date of Service: 10/02/24 Vital Signs Temp Pulse Resp BP Pulse Ox 98.2 F 60 18 144/65 H 96 10/02/24 20:00 10/02/24 20:00 10/02/24 20:00 10/02/24 20:00 10/02/24 20:00 Medications Albuterol Sulfate (Albuterol 2.5 Mg/3 Ml Neb Carlene) 2.5 mg NEB Q6HP PRN PRN Reason: SHORTNESS OF BREATH Aspirin (Aspirin Ec 81 Mg Tab) 81 mg PO DAILY [facility] TO [facility] Last Admin: 10/02/24 09:10 Dose: 81 mg Atorvastatin Calcium (Atorvastatin 80 Mg Tab) 80 mg PO BEDTIME [facility] Last Admin: 10/01/24 20:47 Dose: 80 mg Carvedilol (Carvedilol 25 Mg Tab) 12.5 mg PO BID 6AM 6PM [facility] Last Admin: 10/02/24 17:34 Dose: 12.5 mg Docusate Sodium (Docusate Na 100 Mg Cap) 100 mg PO BID [facility] Last Admin: 10/02/24 09:00 Dose: Not Given Doxazosin Mesylate (Doxazosin 2 Mg Tab) 2 mg PO BEDTIME [facility] Ergocalciferol (Drisdol (Vitamin D=Ergocalciferol) 28826 Unit Cap) 50,000 unit PO Q7D@0900 [facility] Last Admin: 09/28/24 10:09 Dose: 50,000 unit Furosemide (Furosemide 40 Mg Tablet) 80 mg PO BIDL [facility] Last Admin: 10/02/24 17:34 Dose: 80 mg Heparin Sodium (Porcine) (Heparin 1,000 Unit/Ml Vial) 2,000 unit IV EVERY HD PRN PRN Reason: Prevent HD System Clotting Last Admin: 09/30/24 13:27 Dose: 2,000 unit Hydralazine HCl (Hydralazine Hcl 25 Mg Tablet) 100 mg PO BID [facility] Last Admin: 10/02/24 09:11 Dose: 100 mg Insulin Human Regular (Insulin Regular (Human) 100 Unit/Ml) 0 unit SQ ACHS [facility]ENDING SALE TO [facility]; Protocol Last Admin: 10/02/24 16:22 Dose: Not Given Nystatin (Nystatin Oint 15 Gm Tube) 1 appl TOP BID [facility]END[facility] TO [facility] Last Admin: 10/02/24 09:00 Dose: 1 appl Ondansetron HCl (Ondansetron 4 Mg/2 Ml Vial) 4 mg IV Q6HP PRN PRN Reason: NAUSEA / VOMITING Last Admin: 09/17/24 19:32 Dose: 4 mg Potassium Chloride (Potassium Cl Sa 10 Meq Tab) 20 meq PO DAILY [facility] Spironolactone (Spironolactone 25 Mg Tablet) 25 mg PO BIDL [facility] Last Admin: 10/02/24 17:34 Dose: 25 mg Microbiology Results 09/16/24 18:35 Blood - Blood Aerobic Blood Culture - Final No growth in 5 days. 09/16/24 18:35 Blood - Blood Anaerobic Blood Culture - Final No growth in 5 days. 09/16/24 18:55 Blood - Blood Aerobic Blood Culture - Final No growth in 5 days. 09/16/24 18:55 Blood - Blood Anaerobic Blood Culture - Final No growth in 5 days. Assessment/ Plan: Nephrology No dyspnea. MATA No chest pain Fatigue and weakness Feeling better since our last meeting No acute events overnight Vitals, medications, blood work and imaging reviewed in the chart NAD. MMM. NCAT. Normal Respiratory Effort. S1S2. ND Abd. No C/C. Anasarca. No rash. AAO. Normal speech. EXAMINATION: ONE VIEW CHEST XR CLINICAL INDICATION: COUGH TECHNIQUE: Frontal chest projection is submitted. Examination is limited by patient positioning and technique. COMPARISON: 07/14/2024 FINDINGS: Moderate bilateral pulmonary opacities suggest pulmonary edema. Moderate bilateral pleural effusions. The heart is enlarged. No displaced fractures identified. IMPRESSION: Moderate CHF/volume overload pattern suspected. LEFT VENTRICULAR WALL MOTION: NORMAL DOPPLER/COLOR FLOW: GRADE I DIASTOLIC DYSFUNCTION COMMENTS: 1. NORMAL LEFT VENTRICULAR SYSTOLIC FUNCTION, EJECTION FRACTION 55-60%, NORMAL WALL MOTION 2. GRADE II DIASTOLIC DYSFUNCTION 3. ELEVATED FILLING PRESSURE (RIGHT ATRIAL PRESSURE 15-20 mmHg) A/P Stage III BEVERLY likely oliguric ATN due to HTN/ Hypotension on admission complicated by CRS CKD III with Proteinuria -No NSAIDs -Continue diuresis -Surgery placed HD TDC 09-20-24 -First HD 09-20-24 -Arrange for PUF tomorrow Hypokalemia -Continue potassium supplementation HTN with CKD/ CHF -Continue Coreg -Start Doxazosin qhs -Continue Hydralazine Diastolic CHF, A/C Pulmonary Edema/ Anasarca Acute Hypercarbic/ Hypoxic Respiratory Failure -Continue oxygen supplementation -Lasix 80mg BID -Increase Spironolactone DM II with CKD -RISS Hypoalbuminemia -IV Albumin prn CKD MBD Secondary HyperParathyroidism -Continue Ergo Hospitalist note reviewed
[2024-10-03 05:38] LABS: Albumin < 0.9 g/dL (3.4-5.0); Anion Gap 8.0 mEq/L (5.0-15.0); BUN Blood Urea Nitrogen 69 mg/dL (7-18); Glucose Level 101 mg/dL (74-106); Potassium 4.0 mEq/L (3.5-5.1)
[2024-10-03] MEDS: POTASSIUM CL SA 10 MEQ TAB PO SCH (09:12)
--- NOTE | 2024-10-03 18:22 | P.PN ---
Subjective Date of Service: 10/03/24 Chief Complaint: Volume overload with AHRF 2/2 decompensated CHF exacerbation/BEVERLY. Patient patient has no new complaint. He went for hemodialysis today. No issues overnight. Physical Examination - Vital Signs Temperature: 98 F Blood Pressure: 153/73 Pulse: 60 Respirations: 16 Pulse Ox (%): 95 - Studies Medications List Reviewed: Yes Assessment And Plan - Plan Physical Exam: GEN: Alert, oriented, NAD CV: Regular rate and rhythm, 2+ bilateral lower extremity edema up the thighs Pulm: nonlabored respirations on 2L NC, clear bilaterally ABD: soft, nontender, nondistended Rees placed in ED Problem List: Acute on chronic diastolic CHF exacerbation (55-60%EF - June 2024) Anasarca secondary to medication noncompliance Acute hypoxic respiratory failure secondary to the above BEVERLY on CKD Vision loss/Blurry Vision Hypertensive emergency, resolved NIDDM2 Hyperlipidemia Hx of CVA (Left MCA territory 10/2022) Hx of Vitamin B12 deficiency Acute on chronic diastolic CHF exacerbation (55-60%EF - June 2024) Anasarca secondary to medication noncompliance Acute hypoxic respiratory failure secondary to the above BEVERLY on CKD on admission, presents with worsening shortness of breath, significant lower extremity edema, anasarca, orthopnea History of medication noncompliance due to insurance/cost. Ran out of meds a few weeks ago and was unable to afford refills. Most recent echo (07/06/24): 55-60% EF, grade 2 diastolic dysfunction, elevated filling pressure s/p tunneled HD cath with Dr. Engel (09/20) Anasarca improved with dialysis but was stopped due to polyuria. Monitor renal function. Monitor and replete electrolytes as needed. Maintain rees for now. Possible DC before discharge. Renal function initially improved after stopping dialysis however now seemed to have plateaued and started to worsen again Nephrology recommended restarting on HD; restarted 09/29 Continue PO lasix 80 mg BID Dialysis per nephrology Echo completed, pending official report Vision loss/Blurry Vision Hx of CVA (Left MCA territory 10/2022) Report some blurry vision / vision loss which has been slowly getting worse over the last few months Vision worse on the right. States he saw eye doctor and had work up but unsure on results feels vision on both sides has gotten worse in last few days - but only now bringing it up, did not mention yesterday CT head negative for any acute findings. Showed old known basal ganglia CVA. no new CVA. Dr. Rod, Neuro consulted Hypertensive emergency, resolved BP 245/121 on arrival. continue home coreg, hydralazine, marcos BP more controlled since restarting home meds NIDDM2 accu-cheks, SSI Hyperlipidemia Hx of CVA (Left MCA territory 10/2022) Hx of Vitamin B12 deficiency confirm home meds, restart as appropriate 10/03 Patient currently undergoing routine hemodialysis. Nephrology is following. Patient deemed stable for discharge per nephrology. Neurology consulted regarding blurry vision is pending. Continue aspirin and Lipitor Blood pressure control. VTE: heparin sq Code: Full Dispo: SNF
--- NOTE | 2024-10-03 21:14 | P.PN ---
Date of Service: 10/03/24 Vital Signs Temp Pulse Resp BP Pulse Ox 97.8 F 63 16 162/72 H 96 10/03/24 20:00 10/03/24 20:03 10/03/24 20:00 10/03/24 20:03 10/03/24 20:00 Medications Albuterol Sulfate (Albuterol 2.5 Mg/3 Ml Neb Carlene) 2.5 mg NEB Q6HP PRN PRN Reason: SHORTNESS OF BREATH Aspirin (Aspirin Ec 81 Mg Tab) 81 mg PO DAILY [facility] Last Admin: 10/03/24 09:12 Dose: 81 mg Atorvastatin Calcium (Atorvastatin 80 Mg Tab) 80 mg PO BEDTIME [facility] Last Admin: 10/03/24 20:04 Dose: 80 mg Bumetanide (Bumetanide 1 Mg Tablet) 2 mg PO AC [facility] Carvedilol (Carvedilol 25 Mg Tab) 12.5 mg PO BID 6AM 6PM [facility] Last Admin: 10/03/24 17:38 Dose: 12.5 mg Docusate Sodium (Docusate Na 100 Mg Cap) 100 mg PO BID [facility] Last Admin: 10/03/24 19:53 Dose: Not Given Doxazosin Mesylate (Doxazosin 2 Mg Tab) 2 mg PO BEDTIME [facility] Last Admin: 10/03/24 20:03 Dose: 2 mg Ergocalciferol (Drisdol (Vitamin D=Ergocalciferol) 51664 Unit Cap) 50,000 unit PO Q7D@0900 [facility] Last Admin: 09/28/24 10:09 Dose: 50,000 unit Heparin Sodium (Porcine) (Heparin 1,000 Unit/Ml Vial) 2,000 unit IV EVERY HD PRN PRN Reason: Prevent HD System Clotting Last Admin: 10/03/24 12:27 Dose: 2,000 unit Hydralazine HCl (Hydralazine Hcl 25 Mg Tablet) 100 mg PO BID [facility] Last Admin: 10/03/24 20:04 Dose: 100 mg Insulin Human Regular (Insulin Regular (Human) 100 Unit/Ml) 0 unit SQ ACHS [facility]; Protocol Last Admin: 10/03/24 19:55 Dose: Not Given Nystatin (Nystatin Oint 15 Gm Tube) 1 appl TOP BID [facility] Last Admin: 10/03/24 20:04 Dose: 1 appl Ondansetron HCl (Ondansetron 4 Mg/2 Ml Vial) 4 mg IV Q6HP PRN PRN Reason: NAUSEA / VOMITING Last Admin: 09/17/24 19:32 Dose: 4 mg Potassium Chloride (Potassium Cl Sa 10 Meq Tab) 20 meq PO DAILY [facility] Last Admin: 10/03/24 09:12 Dose: 20 meq Spironolactone (Spironolactone 25 Mg Tablet) 25 mg PO BIDL [facility] Last Admin: 10/03/24 16:39 Dose: 25 mg Microbiology Results 09/16/24 18:35 Blood - Blood Aerobic Blood Culture - Final No growth in 5 days. 09/16/24 18:35 Blood - Blood Anaerobic Blood Culture - Final No growth in 5 days. 09/16/24 18:55 Blood - Blood Aerobic Blood Culture - Final No growth in 5 days. 09/16/24 18:55 Blood - Blood Anaerobic Blood Culture - Final No growth in 5 days. Assessment/ Plan: Nephrology No dyspnea. MATA No chest pain Fatigue and weakness Feeling better since our last meeting No acute events overnight Vitals, medications, blood work and imaging reviewed in the chart NAD. MMM. NCAT. Normal Respiratory Effort. S1S2. ND Abd. No C/C. Anasarca. No rash. AAO. Normal speech. EXAMINATION: ONE VIEW CHEST XR CLINICAL INDICATION: COUGH TECHNIQUE: Frontal chest projection is submitted. Examination is limited by patient positioning and technique. COMPARISON: 07/14/2024 FINDINGS: Moderate bilateral pulmonary opacities suggest pulmonary edema. Moderate bilateral pleural effusions. The heart is enlarged. No displaced fractures identified. IMPRESSION: Moderate CHF/volume overload pattern suspected. LEFT VENTRICULAR WALL MOTION: NORMAL DOPPLER/COLOR FLOW: GRADE I DIASTOLIC DYSFUNCTION COMMENTS: 1. NORMAL LEFT VENTRICULAR SYSTOLIC FUNCTION, EJECTION FRACTION 55-60%, NORMAL WALL MOTION 2. GRADE II DIASTOLIC DYSFUNCTION 3. ELEVATED FILLING PRESSURE (RIGHT ATRIAL PRESSURE 15-20 mmHg) A/P Stage III BEVERLY likely oliguric ATN due to HTN/ Hypotension on admission complicated by CRS CKD III with Proteinuria -No NSAIDs -Continue diuresis -Surgery placed HD TDC 09-20-24 -First HD 09-20-24 -HD TIW Hypokalemia -Continue potassium supplementation HTN with CKD/ CHF -Continue Coreg BID -Continue Doxazosin qhs -Continue Hydralazine -Start Losartan BID Diastolic CHF, A/C Pulmonary Edema/ Anasarca Acute Hypercarbic/ Hypoxic Respiratory Failure -Continue oxygen supplementation -Change Lasix to Bumex 2mg TID -Continue Spironolactone BID DM II with CKD -RISS Severe Hypoalbuminemia -IV Albumin prn CKD MBD Secondary HyperParathyroidism -Continue Ergo Case reviewed with Dr. Esposito
[2024-10-03] MEDS: LOSARTAN POTASSIUM 50 MG TABLET PO SCH (21:26)
[2024-10-04 04:59] VITALS: BMI 46.0
[2024-10-04 05:56] LABS: Absolute Lymphocytes (CBC) 1.8 K/uL (0.7-4.9); Hematocrit 34.8 % (39.6-49.0); Hemoglobin 11.9 g/dL (13.6-17.9); MCH 30.6 pg (27.0-35.0); MCHC 34.3 g/dL (32.0-36.0); MCV 89.1 fL (80-100); MPV 8.8 fL (7.6-11.3); Nucleated RBC Absolute Count 0.0 (0-0); Nucleated Red Blood Cells % 0.0 % (0-0); RBC Red Blood Cell Count 3.90 M/uL (4.33-5.43); White Blood Count 8.30 thou/uL (4.3-10.9)
[2024-10-04 06:10] LABS: Albumin 2.5 g/dL (3.4-5.0); Anion Gap 6.0 mEq/L (5.0-15.0); BUN Blood Urea Nitrogen 72.0 mg/dL (7-18); Glucose Level 109.0 mg/dL (74-106); Potassium 4.0 mEq/L (3.5-5.1)
[2024-10-04] MEDS ORDERED: DOXAZOSIN 2 MG TAB PO SCH ×2 (09:00→21:00)
--- NOTE | 2024-10-04 09:09 | P.DS ---
Admission Date: 09/16/24 Discharge Date: 10/04/24 Disposition: TRANSFER TO SNF - REHAB Discharge Condition: FAIR Reason for Admission: Volume overload with AHRF 2/2 decompensated CHF exacerbation/BEVERLY. Brief History of Present Illness: Problem List: Acute on chronic diastolic CHF exacerbation (55-60%EF - June 2024) Anasarca secondary to medication noncompliance Acute hypoxic respiratory failure secondary to the above BEVERLY on CKD Vision loss/Blurry Vision Hypertensive emergency, resolved NIDDM2 Hyperlipidemia Hx of CVA (Left MCA territory 10/2022) Hx of Vitamin B12 deficiency Patient presented with worsening shortness of breath, significant lower extremity edema, anasarca, orthopnea secondary to acute on chronic diastolic CHF exacerbation. On admission he reported being unable to take most of his home medications for at least the last few weeks due to cost/insurance. Patient was started on IV lasix/albumin drip however didn't have much improvement. Cardiology and nephrology were consulted. Nephrology recommended initiating dialysis given his minimal improvement with lasix drip and worsening renal function. Patient had tunneled HD cath placed by Dr. Engel on 09/20 without issues. Anasarca improved with dialysis but had to be stopped due to polyuria. Renal function initially continued to improve over the next few days after stopping dialysis however renal function eventually plateaued and starting to worsen again. Given his worsening renal function and no clear signs of renal recovery, Dr. Fong recommended patient be started back on dialysis for ultrafiltration. Routine hemodialysis has been arranged for the patient and outpatient hemodialysis seat has been compliant. Overall patient anasarca has significantly improved, oxygen requirement has significantly improved and currently saturating at 96% on 2 L by nasal cannula. Overall patient responded to treatment, has clinically improved and deemed stable for discharge to [facility] for skilled rehab. Vital Signs/Physical Exam: Temp Pulse Resp BP Pulse Ox 97.6 F 61 16 120/59 L 92 10/04/24 08:00 10/04/24 08:00 10/04/24 08:00 10/04/24 08:00 10/04/24 08:00 General: Alert, In no apparent distress, Oriented x3 HEENT: Mucous membr. moist/pink, Sclerae nonicteric Neck: JVD not distended Respiratory: Clear to auscultation bilaterally, Normal air movement Cardiovascular: Regular rate/rhythm, Normal S1 S2, Edema (1+ bilateral lower extremity edema) Gastrointestinal: Soft and benign, Non-distended Musculoskeletal: No tenderness Integumentary: No rashes, No cyanosis Neurological: Normal strength at 5/5 x4 extr Laboratory Data at Discharge: WBC 8.30 thou/uL (4.3-10.9) 10/04/24 05:44 Hgb 11.9 g/dL (13.6-17.9) L 10/04/24 05:44 Hct 34.8 % (39.6-49.0) L 10/04/24 05:44 Plt Count 283 thou/uL (152-406) 10/04/24 05:44 PT 14.1 SECONDS (10-13.0) H 09/16/24 18:55 INR 1.26 09/16/24 18:55 APTT 33.5 SECONDS (27.2-37.4) 09/20/24 04:57 Sodium 138 mEq/L (136-145) 10/04/24 05:44 Potassium 4.0 mEq/L (3.5-5.1) 10/04/24 05:44 BUN 72 mg/dL (7-18) H 10/04/24 05:44 Creatinine 2.96 mg/dL (0.70-1.30) H 10/04/24 05:44 Glucose 109 mg/dL (74-106) H 10/04/24 05:44 Uric Acid 8.3 mg/dL (3.5-7.2) H 09/20/24 04:57 Phosphorus 4.3 mg/dL (2.5-4.9) 10/04/24 05:44 Magnesium 2.1 mg/dL (1.6-2.4) 10/02/24 05:09 Total Bilirubin 0.5 mg/dL (0.2-1.0) 09/29/24 06:16 AST 19 U/L (15-37) 09/29/24 06:16 ALT 19 U/L (16-61) 09/29/24 06:16 Alkaline Phosphatase 135 U/L (45-117) H 09/29/24 06:16 Lipase 191 U/L (13-75) H 09/16/24 18:55 Home Medications: Atorvastatin Calcium [Lipitor] 80 mg PO BEDTIME 09/27/24 Losartan Potassium 50 mg PO DAILY 09/27/24 Spironolactone 25 mg PO BID 09/27/24 Aspirin [Aspirin EC] 81 mg PO DAILY #30 tab 10/04/24 Bumetanide [Bumex*] 2 mg PO AC tab 10/04/24 Docusate [Colace Cap*] 100 mg PO BID cap 10/04/24 Doxazosin [Cardura*] 2 mg PO BEDTIME tab 10/04/24 Hydralazine [Apresoline*] 100 mg PO BID tab 10/04/24 Insulin Regular, Human [Novolin R] See Protocol SQ ACHS ml 10/04/24 Losartan Potassium [Cozaar*] 50 mg PO BID 10/04/24 Nystatin Oint [Mycostatin 100 Mu/Gm Oint*] 1 appl TOP BID tube 10/04/24 Potassium Oral Tab [Klor-Con 10 mEq Tab*] 20 meq PO DAILY tab 10/04/24 Vitamin D [Drisdol*] 50,000 unit PO Q7D@0900 cap 10/04/24 carvediloL [Coreg*] 12.5 mg PO BID 6AM 6PM tab 10/04/24 New Medications: Aspirin [Aspirin EC] 81 mg PO DAILY #30 tab Physician Discharge Instructions: Physician discharge instructions: Patient presented with worsening shortness of breath, significant lower extremity edema, anasarca, orthopnea secondary to acute on chronic diastolic CHF exacerbation. On admission he reported being unable to take most of his home medications for at least the last few weeks due to cost/insurance. Patient was started on IV lasix/albumin drip however didn't have much improvement. Cardiology and nephrology were consulted. Nephrology recommended initiating dialysis given his minimal improvement with lasix drip and worsening renal function. Patient had tunneled HD cath placed by Dr. Engel on 09/20 without issues. Anasarca improved with dialysis but had to be stopped due to polyuria. Renal function initially continued to improve over the next few days after stopping dialysis however renal function eventually plateaued and starting to worsen again. Discussed with nephrology, given his worsening renal function and no clear signs of renal recovery, Dr. Fong recommended patient be started back on dialysis for ultrafiltration. Medications: Follow up: PCP 3-5 days Nephrology in 1-2 weeks Please call to schedule / confirm appointments Diet: Renal Followup: NONE,NONE [Primary Care Provider] - Time spent managing pt's care (in minutes): 42
[2024-10-04] MEDS: HYDRALAZINE HCL 25 MG TABLET PO SCH (09:33)
[2024-10-04] MEDS: BUMETANIDE 1 MG TABLET PO SCH (09:33)
[2024-10-04 09:37] VITALS: O2SAT 96
[2024-10-04 16:24] VITALS: BP 154/68
[2024-10-04 16:51] VITALS: TEMP 98.1
--- NOTE | 2024-10-04 19:30 | P.PN ---
Date of Service: 10/04/24 Vital Signs Temp Pulse Resp BP Pulse Ox 98.1 F 62 16 154/68 H 94 10/04/24 16:00 10/04/24 16:24 10/04/24 16:00 10/04/24 16:24 10/04/24 16:00 Microbiology Results 09/16/24 18:35 Blood - Blood Aerobic Blood Culture - Final No growth in 5 days. 09/16/24 18:35 Blood - Blood Anaerobic Blood Culture - Final No growth in 5 days. 09/16/24 18:55 Blood - Blood Aerobic Blood Culture - Final No growth in 5 days. 09/16/24 18:55 Blood - Blood Anaerobic Blood Culture - Final No growth in 5 days. Assessment/ Plan: Nephrology No dyspnea. MATA No chest pain Fatigue and weakness Feeling better since our last meeting No acute events overnight Vitals, medications, blood work and imaging reviewed in the chart NAD. MMM. NCAT. Normal Respiratory Effort. S1S2. ND Abd. No C/C. Anasarca. No rash. AAO. Normal speech. EXAMINATION: ONE VIEW CHEST XR CLINICAL INDICATION: COUGH TECHNIQUE: Frontal chest projection is submitted. Examination is limited by patient positioning and technique. COMPARISON: 07/14/2024 FINDINGS: Moderate bilateral pulmonary opacities suggest pulmonary edema. Moderate bilateral pleural effusions. The heart is enlarged. No displaced fractures identified. IMPRESSION: Moderate CHF/volume overload pattern suspected. LEFT VENTRICULAR WALL MOTION: NORMAL DOPPLER/COLOR FLOW: GRADE I DIASTOLIC DYSFUNCTION COMMENTS: 1. NORMAL LEFT VENTRICULAR SYSTOLIC FUNCTION, EJECTION FRACTION 55-60%, NORMAL WALL MOTION 2. GRADE II DIASTOLIC DYSFUNCTION 3. ELEVATED FILLING PRESSURE (RIGHT ATRIAL PRESSURE 15-20 mmHg) A/P Stage III BEVERLY likely oliguric ATN due to HTN/ Hypotension on admission complicated by CRS CKD III with Proteinuria -No NSAIDs -Continue diuresis -Surgery placed HD [facility] 09-20-24 -First HD 09-20-24 -HD TIW Hypokalemia -Continue potassium supplementation HTN with CKD/ CHF -Continue Coreg BID -Continue Doxazosin qhs -Discontinue Hydralazine -Continue Losartan BID Diastolic CHF, A/C Pulmonary Edema/ Anasarca Acute Hypercarbic/ Hypoxic Respiratory Failure -Continue oxygen supplementation -Continue Bumex 2mg TID -Continue Spironolactone BID DM II with CKD -RISS Severe Hypoalbuminemia -IV Albumin prn CKD MBD Secondary HyperParathyroidism -Continue Ergo Case reviewed with Dr. Esposito
== END 2024-10-04 17:20 | DRG 291 ==
LOC: ER 17:46 → ERHOLD 21:24 → 3RD-ICU 22:50 → 4TH 09-24 11:39
PROVIDERS: ADMIT Hospitalist; ATTEND Internal Medicine
PROC: 5A09457 Assistance with Respiratory Ventilation, 24-96 Consecutive Hours, Continuous Positive Airway Pressure (ICD-10-PCS; 2024-09-16)
PROC: B513YZA Fluoroscopy of Right Jugular Veins using Other Contrast, Guidance (ICD-10-PCS; 2024-09-20)
PROC: 05HM33Z Insertion of Infusion Device into Right Internal Jugular Vein, Percutaneous Approach (ICD-10-PCS; principal; 2024-09-20 12:30)
PROC: 5A1D70Z Performance of Urinary Filtration, Intermittent, Less than 6 Hours Per Day (ICD-10-PCS; 2024-09-21)
DX: I13.0 Hypertensive heart and chronic kidney disease with heart failure and stage 1 through stage 4 chronic kidney disease, or unspecified chronic kidney disease (principal); I50.33 Acute on chronic diastolic (congestive) heart failure; J96.21 Acute and chronic respiratory failure with hypoxia; N17.9 Acute kidney failure, unspecified; I16.1 Hypertensive emergency; E66.2 Morbid (severe) obesity with alveolar hypoventilation; Z68.42 Body mass index [BMI] 45.0-49.9, adult; N39.0 Urinary tract infection, site not specified; N25.81 Secondary hyperparathyroidism of renal origin; Z23 Encounter for immunization; Z11.52 Encounter for screening for COVID-19; E11.22 Type 2 diabetes mellitus with diabetic chronic kidney disease; Z91.199 Patient's noncompliance with other medical treatment and regimen due to unspecified reason; H54.7 Unspecified visual loss; H53.8 Other visual disturbances; E78.5 Hyperlipidemia, unspecified; Z86.73 Personal history of transient ischemic attack (TIA), and cerebral infarction without residual deficits; E53.8 Deficiency of other specified B group vitamins; Z79.82 Long term (current) use of aspirin; Z79.899 Other long term (current) drug therapy; Z79.85 Long-term (current) use of injectable non-insulin antidiabetic drugs; N18.30 Chronic kidney disease, stage 3 unspecified; I16.0 Hypertensive urgency; E88.09 Other disorders of plasma-protein metabolism, not elsewhere classified; Z91.141 Patient's other noncompliance with medication regimen due to financial hardship; E11.21 Type 2 diabetes mellitus with diabetic nephropathy; E87.6 Hypokalemia; Z79.4 Long term (current) use of insulin
CPT/HCPCS: 36415; 36600; 51702; 70450; 71045; 74176; 76000; 80048; 80053; 80069; 80076; 81001; 82043; 82570; 82805; 82947; 83605; 83690; 83735; 83880; 84100; 84156; 84484; 84550; 85025; 85027; 85610; 85730; 86140; 86704; 86706; 86803; 87040; 87086; 87088; 87340; 87428; 90935; 93005; 93306; 93970; 94010; 94640; 94660; 94760; 97110; 97116; 97161; 97530; 99285; A4216; C1752; J0692; J0696; J1644; J1815; J1938; J2003; J2405; J2704; J2710; J2919; J2997; J3010; J7040; J7613; J7644; P9047

== ENCOUNTER 2024-11-01 11:07 | Emergency (ER) | payer OTHER ==
[2024-11-01 11:46] LABS: Absolute Lymphocytes (CBC) 2.8 K/uL (0.7-4.9); Hematocrit 38.7 % (39.6-49.0); Hemoglobin 13.0 g/dL (13.6-17.9); MCH 29.9 pg (27.0-35.0); MCHC 33.5 g/dL (32.0-36.0); MCV 89.2 fL (80-100); MPV 7.8 fL (7.6-11.3); Nucleated RBC Absolute Count 0.0 (0-0); Nucleated Red Blood Cells % 0.0 % (0-0); RBC Red Blood Cell Count 4.33 M/uL (4.33-5.43); White Blood Count 10.40 thou/uL (4.3-10.9)
[2024-11-01] MEDS ORDERED: HYDRALAZINE HCL 20 MG/ML VIAL ONE (12:23)
[2024-11-01 12:27] LABS: PT Prothrombin Time 12.5 SECONDS (10-13.0); Protime INR 1.11
[2024-11-01 12:39] LABS: ALT/SGPT 19.0 U/L (16-61); AST/SGOT 18.0 U/L (15-37); Albumin 2.7 g/dL (3.4-5.0); Albumin/Globulin Ratio 0.6 (1.1-1.8); Alkaline Phosphatase 138.0 U/L (45-117); Anion Gap 8.2 mEq/L (5.0-15.0); BUN Blood Urea Nitrogen 28.0 mg/dL (7-18); Bilirubin Indirect, Calculated 0.4 mg/dL (0.2-0.8); Globulin 4.8 g/dL (2.3-3.5); Glucose Level 103.0 mg/dL (74-106); Magnesium 2.4 mg/dL (1.6-2.4); NT PRO-BNP 3838.0 pg/mL (<125); Potassium 4.2 mEq/L (3.5-5.1); Troponin High Sensitivity 20.8 pg/mL (<58.9)
--- NOTE | 2024-11-01 12:46 | RAD REPORT ---
EXAMINATION: ONE VIEW CHEST XR CLINICAL INDICATION: Male, 53 years old.,CHEST PAIN TECHNIQUE: Frontal chest projection is submitted. Examination is limited by patient positioning and t echnique. COMPARISON: 10/02/2024 FINDINGS: Right IJ dialysis place. Interval improvement of hazy opacification in the right upper lung. Other ce ntral and bibasilar opacities with central interstitial prominence and probable small effusions, stable. No pneumothorax. The heart is normal in size. Mediastinal contours are unremarkable. IMPRESSION: Interval improvement of aeration in the right upper lung. Otherwise stable findings suggestive of pul monary edema.
--- NOTE | 2024-11-01 13:01 | EDPHYS ---
Physician Documentation [facility] Name: Alan Pollack Jr Age: 53 yrs Sex: Male : 1970 Arrival Date: 11/01/2024 Time: 11:07 Bed 3 Private MD: ED Physician Monty Rodriguez HPI: 11/01 12:08 This 53 yrs old Male presents to ER via EMS with complaints of Chest Pain. sp3 12:08 53-year-old male with history of CHF, hypertension, diabetes, end-stage renal disease sp3 on hemodialysis presents to the ED with chief complaint hide blood pressure 190s systolically at home. Patient was sent in by nurse. Patient has no complaints whatsoever. He states he has some some blurry vision which he has had for 2 months and is already to his primary team about it. He denies any headache, neck pain, chest pain, shortness of breath, abdominal pain, vomiting, diarrhea, syncope, bleeding, or any other signs or symptoms on ROS at this time.. 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 - Infectious Disease History:: Denies. - Social history:: Smoking status: unknown. ROS: 12:13 Constitutional: Negative for fever, chills, and weight loss, Eyes: Negative for injury, sp3 pain, redness, and discharge, ENT: Negative for injury, pain, and discharge, Neck: Negative for injury, pain, and swelling, Respiratory: Negative for shortness of breath, cough, wheezing, and pleuritic chest pain, Abdomen/GI: Negative for abdominal pain, nausea, vomiting, diarrhea, and constipation, Back: Negative for injury and pain, MS/Extremity: Negative for injury and deformity, Skin: Negative for injury, rash, and discoloration, Neuro: Negative for headache, weakness, numbness, tingling, and seizure, Psych: Negative for depression, anxiety, suicide ideation, homicidal ideation, and hallucinations, Allergy/Immunology: Negative for hives, rash, and allergies, Endocrine: Negative for neck swelling, polydipsia, polyuria, polyphagia, and marked weight changes, 12:13 All other systems are negative, Exam: 12:15 Constitutional: This is a well developed, well nourished patient who is awake, alert, sp3 and in no acute distress. Head/Face: Normocephalic, atraumatic. Eyes: Pupils equal round and reactive to light, extra-ocular motions intact. Lids and lashes normal. Conjunctiva and sclera are non-icteric and not injected. Cornea within normal limits. Periorbital areas with no swelling, redness, or edema. ENT: Nares patent. No nasal discharge, no septal abnormalities noted. External auditory canals are clear. Oropharynx with no redness, swelling, or masses, exudates, or evidence of obstruction, uvula midline. Mucous membranes moist. Neck: Trachea midline, no thyromegaly or masses palpated, and no cervical lymphadenopathy. Supple, full range of motion without nuchal rigidity, or vertebral point tenderness. No Meningismus. Chest/axilla: Normal chest wall appearance and motion. Nontender with no deformity. No lesions are appreciated. Cardiovascular: Regular rate and rhythm with a normal S1 and S2. No gallops, murmurs, or rubs. Normal PMI, no JVD. No pulse deficits. Respiratory: Lungs have equal breath sounds bilaterally, clear to auscultation and percussion. No rales, rhonchi or wheezes noted. No increased work of breathing, no retractions or nasal flaring. Abdomen/GI: Soft, non-tender, with normal bowel sounds. No distension or tympany. No guarding or rebound. No evidence of tenderness throughout. Back: No spinal tenderness. No costovertebral tenderness. Full range of motion. Skin: Warm, dry with normal turgor. Normal color with no rashes, no lesions, and no evidence of cellulitis. MS/ Extremity: Pulses equal, no cyanosis. Neurovascular intact. Full, normal range of motion. Neuro: Awake and alert, GCS 15, oriented to person, place, time, and situation. Cranial nerves II-XII grossly intact. Motor strength 5/5 in all extremities. Sensory grossly intact. Cerebellar exam normal. Normal gait. Psych: Awake, alert, with orientation to person, place and time. Behavior, mood, and affect are within normal limits. 12:17 ECG was reviewed by the Attending Physician. EKG demonstrates normal sinus rhythm at 65 sp3 bpm with normal intervals, normal QRS, poor R wave progression and nonspecific ST/T changes without evidence of acute ischemia. Vital Signs: 11:10 BP 194 / 86; Pulse 63; Resp 18; Temp 98; Pulse Ox 92% on R/A; Weight 108 kg; Height 5 db ft. 10 in. ; 12:16 BP 197 / 90; Pulse 66; Resp 15; Pulse Ox 97% ; bp 11:10 Body Mass Index 34.16 (108.00 kg, 177.8 cm) db MDM: 11:16 Medical Screening Exam initiated sp3 12:15 Data reviewed: vital signs, nurses notes, lab test result(s), EKG, radiologic studies. sp3 ED course: 53-year-old male with hypertension in the setting of his past medical history. Patient has no symptoms whatsoever. I do not believe patient has any endorgan damage currently. He is already on dialysis. He has no headache. We will test general labs and troponin. Nitroglycerin for symptomatic control. Follow-up with PCP regarding any blood pressure medication changes. No intervention indicated in the ED.. 12:59 ED course: Full workup negative. Interval chest x-ray demonstrates improved aeration. sp3 Patient in no acute distress. Blood pressure at 172 systolic. We will safely discharge home at this time.. 11/01 11:17 Order name: Basic Metabolic Panel; Complete Time: 12:53 3 11/01 11:17 Order name: CBC with Diff; Complete Time: 12:53 3 11/01 11:17 Order name: LFT's; Complete Time: 12:53 3 11/01 11:17 Order name: Magnesium; Complete Time: 12:53 3 11/01 11:17 Order name: NT PRO-BNP; Complete Time: 12:53 3 11/01 11:17 Order name: PT-INR; Complete Time: 12:53 3 11/01 11:17 Order name: Troponin HS; Complete Time: 12:53 3 11/01 11:17 Order name: XRAY Chest (1 view); Complete Time: 12:53 3 11/01 11:17 Order name: Cardiac monitoring; Complete Time: 11:39 3 11/01 11:17 Order name: EKG - Nurse/Tech; Complete Time: 11:39 3 11/01 11:17 Order name: IV Saline Lock; Complete Time: 11:39 sp3 11/01 11:17 Order name: Labs collected and sent; Complete Time: 11:39 sp3 11/01 11:17 Order name: O2 Per Protocol; Complete Time: 11:39 sp3 11/01 11:17 Order name: O2 Sat Monitoring; Complete Time: 11:39 sp3 11/01 11:52 Order name: Labs - recollect needed: green; Complete Time: 12:11 bc6 Administered Medications: 12:25 Drug: hydrALAZINE IVP 10 mg IVP once Route: IVP; Site: right hand; bp Disposition Summary: 11/01/24 13:00 Discharge Ordered Notes: Location: Home sp3 Condition: Stable sp3 Diagnosis - Essential hypertension, end-stage renal disease sp3 Followup: sp3 - With: Private Physician - When: Upon discharge from the Emergency Department - Reason: Continuance of care Discharge Instructions: - Discharge Summary Sheet sp3 - Managing Your Hypertension sp3 Forms: - Medication Reconciliation Form sp3 - Antibiotic Education sp3 - Prescription Opioid Use sp3 - Patient Portal Instructions sp3 - Leadership Thank You Letter sp3 Signatures: Dispatcher [employer] EDJw Bernal, GOPI RN bp Monty Rodriguez MD MD sp3 Darlin Harris RN RN Katalina Page bc6 Corrections: (The following items were deleted from the chart) 11:20 11:20 BASIC METABOLIC PANEL+C.LAB.BRZ ordered. EDMS EDMS 11:20 11:20 CBC+H.LAB.BRZ ordered. EDMS EDMS 11:20 11:20 HEPATIC FUNCTION+C.LAB.BRZ ordered. EDMS EDMS 11:20 11:20 MAGNESIUM+C.LAB.BRZ ordered. EDMS EDMS 11:20 11:20 PROBNP+C.LAB.BRZ ordered. EDMS EDMS 11:20 11:20 PROTIME (+INR)+COAG.LAB.BRZ ordered. EDMS EDMS 11:20 11:20 Troponin High Sensitivity+C.LAB.BRZ ordered. EDMS EDMS 11:20 11:20 Chest Single View+RAD.RAD.BRZ ordered. EDMS EDMS
--- NOTE | 2024-11-01 13:01 | ER ---
Nurse's Notes [facility] Name: Alan Pollack Jr Age: 53 yrs Sex: Male : 1970 Arrival Date: 11/01/2024 Time: 11:07 Bed 3 Private MD: Diagnosis: Essential hypertension, end-stage renal disease Presentation: 11/01 11:10 Chief complaint: EMS states: FROM HOME WITH ELEVATED BP 190'S BY PHYSICAL THERAPY. EMS db GOT 218/112 GIVEN 15 MG IVP LABETALOL BE EMS NOW 190/88 STARTED ON NC 2L. LAST DIALYSIS YESTERDAY. Coronavirus screen: Client denies travel out of the [place] in the last 14 days. At this time, the client does not indicate any symptoms associated with coronavirus-19. Ebola Screen: Patient negative for fever greater than or equal to 101.5 degrees Fahrenheit, and additional compatible Ebola Virus Disease symptoms Patient denies exposure to infectious person. Patient denies travel to an Ebola-affected area in the 21 days before illness onset. No symptoms or risks identified at this time. Initial Sepsis Screen: Does the patient meet any 2 criteria? No. Patient's initial sepsis screen is negative. Does the patient have a suspected source of infection? No. Patient's initial sepsis screen is negative. Risk Assessment: Do you want to hurt yourself or someone else? Patient reports no desire to harm self or others. Onset of symptoms was November 01, 2024. Care prior to arrival: Medication(s) given: LABETALOL 15 MG IV initiated. 20 GA, in the right hand, Glucose check: 123. 11:10 Method Of Arrival: EMS: [facility] db 11:10 Acuity: ROSIE 2 db Triage Assessment: 11:10 General: Appears in no apparent distress. comfortable, Behavior is calm, cooperative. db Pain: Denies pain. Neuro: Diaz Agitation-Sedation Scale (RASS): Level of Consciousness is awake, alert, obeys commands, Oriented to person, place, time, situation. Cardiovascular: Denies chest pain. 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 - Infectious Disease History:: Denies. - Social history:: Smoking status: unknown. Screenin:16 [facility] ED Fall Risk Assessment (Adult) History of falling in the last 3 months, bp including since admission No falls in past 3 months (0 pts) Confusion or Disorientation No (0 pts) Intoxicated or Sedated No (0 pts) Impaired Gait No (0 pts) Mobility Assist Device Used No (0 pt) Altered Elimination No (0 pt) Score/Fall Risk Level 0 - 2 = Low Risk Oriented to surroundings. Abuse screen: Denies threats or abuse. Denies injuries from another. Nutritional screening: No deficits noted. Tuberculosis screening: No symptoms or risk factors identified. Assessment: 11:36 Reassessment: SEE TRIAGE FOR INITIAL ASSESSMENT. Pain: Denies pain. Pain does not db radiate. Pain began. Vital Signs: 11:10 BP 194 / 86; Pulse 63; Resp 18; Temp 98; Pulse Ox 92% on R/A; Weight 108 kg; Height 5 db ft. 10 in. ; 12:16 BP 197 / 90; Pulse 66; Resp 15; Pulse Ox 97% ; bp 11:10 Body Mass Index 34.16 (108.00 kg, 177.8 cm) db ED Course: 11:09 Patient arrived in ED. al6 11:10 Monty Rodriguez MD is Attending Physician. sp3 11:10 Arm band placed on Patient placed in an exam room. db 11:12 EKG done, reviewed by Monty Rodriguez MD. Maintain EMS IV. Dressing intact. Good blood db return noted. Site clean \T\ dry. Gauge \T\ site: 20 G R HAND. 11:22 Darlin Harris, RN is Primary Nurse. db 11:25 Triage completed. db 11:54 XRAY Chest (1 view) In Process Unspecified. EDMS 12:16 Patient has correct armband on for positive identification. bp Administered Medications: 12:25 Drug: hydrALAZINE IVP 10 mg IVP once Route: IVP; Site: right hand; bp Outcome: 13:00 Discharge ordered by . sp3 13:34 Patient left the ED. bc6 Signatures: Dispatcher [employer] EDMS wJ Severino RN RN bp Patel, Setul, MD MD sp3 Darlin Harris, RN RN Katalina Page bc6 Edwina Barrera al6
[2024-11-01 13:48] VITALS: TEMP 98
[2024-11-01 13:50] VITALS: BP 197/90; O2SAT 97
== END 2024-11-01 13:34 | disposition home or self-care (01) ==
LOC: ER 11:07
DX: I13.2 Hypertensive heart and chronic kidney disease with heart failure and with stage 5 chronic kidney disease, or end stage renal disease (principal); N18.6 End stage renal disease; I50.9 Heart failure, unspecified; Z99.2 Dependence on renal dialysis
CPT/HCPCS: 93005; 85025; 80048; 36415; 83735; 85610; 80076; 84484; 83880; 71045; 96374; 99284; J0360